=== PATIENT | male | born 1935 | race Caucasian/White ===

== ENCOUNTER 2019-10-14 07:08 | Day surgery (SDC) | payer MEDICARE, OTHER ==
[2019-10-14] MEDS: Polymyxin B/Trimethoprim 10 ML Bottle EYERT SCH ×4 (07:12→08:57)
[2019-10-14] MEDS: Brimonidine 0.2% Ophth Soln 5 ML Bottle EYERT SCH ×4 (07:19→08:57)
--- NOTE | 2019-10-14 07:20 | PCM.PREANE ---
Preanesthetic Assessment - Anesthesia/Transfusion/Family Hx Anesthesia History: Prior Anesthesia Without Reaction Family History of Anesthesia Reaction: No Transfusion History: No Prior Transfusion(s) - Review of Systems General: No Symptoms, Night Sweats Cardiovascular: No Symptoms Gastrointestinal: No Symptoms Neurological: No Symptoms Other: Reports: None - Physical Assessment NPO Status Date: 10/13/19 NPO Status Time: 21:00 ASA Class: 2 Mental Status: Alert & Oriented x3 Airway Class: Mallampati = 1 Dentition: Reports: Dentures Thyro-Mental Finger Breadths: 3 Mouth Opening Finger Breadths: 3 ROM/Head Extension: Full Lungs: Clear to Auscultation, Normal Respiratory Effort Cardiovascular: Regular Rate, Regular Rhythm - Allergies Allergies/Adverse Reactions: Allergies Allergy/AdvReac Type Severity Reaction Status Date / Time erythromycin base Allergy Hives Verified 10/13/19 21:23 - Anesthesia Plan Beta Fredrick: Carvedilol Med Last Dose Date: 10/14/19 Med Last Dose Time: 05:00 - Acknowledgements Anesthesia Type Planned: MAC Pt an Appropriate Candidate for the Planned Anesthesia: Yes Alternatives and Risks of Anesthesia Discussed w Pt/Guardian: Yes Pt/Guardian Understands and Agrees with Anesthesia Plan: Yes PreAnesthesia Questionnaire HEENT History: Reports: Cataract Cardiovascular History: Reports: CAD (mar 2019 CABG 4 vessel), High Cholesterol , Hypertension Respiratory History: Reports: None Gastrointestinal History: Reports: GERD Genitourinary History: Reports: Renal Calculus Musculoskeletal History: Reports: Arthritis Psychiatric History: Reports: None Endocrine/Metabolic History: Reports: Diabetes, Type II Hematologic History: Reports: Polycythemia Oncologic (Cancer) History: Reports: Other (See Below) (polycythemia) - Past Surgical History Cardiovascular Surgical History: Reports: Coronary Artery Bypass GI Surgical History: Reports: Cholecystectomy, Colonoscopy - SUBSTANCE USE Smoking Status *Q: Former Smoker - HOME MEDS Home Medications: Home Meds metFORMIN HCl [Metformin HCl] 500 mg PO BID 10/13/15 [History] Aspirin 81 mg PO DAILY 10/13/19 [History] Carboxymethylcellulose Sodium [Artificial Tears] 1 dose EYEBOTH ASDIRECTED PRN 10/13/19 [History] Clopidogrel Bisulfate [Clopidogrel] 75 mg PO DAILY 10/13/19 [History] Hydrocortisone [Hydrocortisone 2.5% Oint] 1 dose TOP BID PRN 10/13/19 [History] Hydroxyurea 500 mg PO DAILY 10/13/19 [History] Nitroglycerin [Nitrostat] 0.4 mg PO DAILY 10/13/19 [History] Sennosides/Docusate Sodium [Sennosides-Docusate Sodium] 1 tab PO DAILY 10/13/19 [History] Tamsulosin HCl 0.4 mg PO DAILY 10/13/19 [History] atorvaSTATin Calcium [Lipitor] 40 mg PO DAILY 10/13/19 [History] carvediloL [Carvedilol] 3.125 mg PO BID 10/13/19 [History] lisinopriL [Lisinopril] 5 mg PO DAILY 10/13/19 [History] - CURRENT (IN HOUSE) MEDS Current Meds: Current Medications Brimonidine Tartrate (Alphagan 0.2% Ophth Soln) 0 ml EYERT ASDIRECTED KEVIN Stop: 10/14/19 18:00 Cefuroxime Sodium (Zinacef) 0 mg EYERT ASDIRECTED KEVIN Stop: 10/14/19 18:00 Lidocaine HCl (Lidocaine 1%) 0 ml INJECT ASDIRECTED KEVIN Stop: 10/14/19 18:00 Phenylephrine HCl (Tl-Synephrine 2.5% Ophth Soln) 0 ml EYERT ASDIRECTED KEVIN Stop: 10/14/19 18:00 Pilocarpine HCl (Pilocar 4% Ophth Soln) 0 ml EYERT ASDIRECTED KEVIN Stop: 10/14/19 18:00 Polymyxin/Trimethoprim Sulfate (Polytrim Ophth Soln) 0 ml EYERT ASDIRECTED KEVIN Stop: 10/14/19 18:00 Tetracaine HCl (Tetracaine 0.5% Steri-Unit Maria Luisa) 0 ml EYEBOTH ASDIRECTED KEVIN Stop: 10/14/19 18:00 Tropicamide (Mydriacyl 1% Ophth Soln) 0 ml EYERT ASDIRECTED KEVIN Stop: 10/14/19 18:00
[2019-10-14] MEDS: Phenylephrine 2.5% Ophth Soln 2 ML Bot EYERT SCH ×6 (07:23→08:34)
[2019-10-14] MEDS: Tropicamide 1% Ophth Soln 15 ML Bottle EYERT SCH ×4 (07:28→08:03)
[2019-10-14] MEDS: Tetracaine HCl/PF 0.5% 4 ML Bottle EYEBOTH SCH ×3 (07:33→08:45)
[2019-10-14] MEDS: Pilocarpine 4% Ophth Soln 15 ML Bot EYERT SCH ×2 (07:34→08:57)
[2019-10-14] MEDS: Cefuroxime 10 MG/ML SYRINGE EYERT SCH ×2 (07:34→08:56)
[2019-10-14] MEDS: Lidocaine 1% 2 ML SDV INJECT SCH ×2 (07:34→08:46)
--- NOTE | 2019-10-14 09:01 | PCM48HPAN ---
Post Anesthesia Note - EVALUATION WITHIN 48HRS OF ANESTHETIC Vital Signs in Normal Range: Yes Patient Participated in Evaluation: Yes Respiratory Function Stable: Yes Airway Patent: Yes Cardiovascular Function Stable: Yes Hydration Status Stable: Yes Pain Control Satisfactory: Yes Nausea and Vomiting Control Satisfactory: Yes Mental Status Recovered: Yes Vital Signs: Last Vital Signs Temp 36.3 C 10/14/19 07:10 Pulse 88 10/14/19 07:10 Resp 16 10/14/19 07:10 BP 145/76 H 10/14/19 07:10 Pulse Ox 98 10/14/19 07:10
[2019-10-14 09:14] VITALS: BP 132/67; PULSE 87
== END 2019-10-14 09:10 | disposition home or self-care (01) ==
LOC: JD.SDS 07:08
PROVIDERS: ATTEND Ophthalmology
DX: E11.36 Type 2 diabetes mellitus with diabetic cataract (principal); H25.813 Combined forms of age-related cataract, bilateral; H16.223 Keratoconjunctivitis sicca, not specified as Sjogren's, bilateral; H16.103 Unspecified superficial keratitis, bilateral; H02.831 Dermatochalasis of right upper eyelid; H02.834 Dermatochalasis of left upper eyelid; H21.81 Floppy iris syndrome; E78.00 Pure hypercholesterolemia, unspecified; I10 Essential (primary) hypertension; K21.9 Gastro-esophageal reflux disease without esophagitis; Z79.82 Long term (current) use of aspirin; Z79.84 Long term (current) use of oral hypoglycemic drugs; Z88.1 Allergy status to other antibiotic agents; Z79.899 Other long term (current) drug therapy; Z87.891 Personal history of nicotine dependence
CPT/HCPCS: J0697; J2001; V2632

== ENCOUNTER 2019-11-11 07:01 | Day surgery (SDC) | payer MEDICARE, OTHER ==
[2019-11-11] MEDS: Polymyxin B/Trimethoprim 10 ML Bottle EYELF SCH ×4 (07:15→08:58)
[2019-11-11] MEDS: Brimonidine 0.2% Ophth Soln 5 ML Bottle EYELF SCH ×4 (07:19→08:58)
[2019-11-11] MEDS: Phenylephrine 2.5% Ophth Soln 2 ML Bot EYELF SCH ×6 (07:24→08:28)
--- NOTE | 2019-11-11 07:26 | PCM.PREANE ---
Preanesthetic Assessment - Procedure Proposed Procedure: Cataract Left eye with IOL - Anesthesia/Transfusion/Family Hx Anesthesia History: Prior Anesthesia Without Reaction Family History of Anesthesia Reaction: No Transfusion History: No Prior Transfusion(s) - Review of Systems General: No Symptoms Pulmonary: No Symptoms Cardiovascular: Dyspnea on Exertion Gastrointestinal: No Symptoms Neurological: No Symptoms Other: Reports: Diabetes (check this am 150), Neck Pain (right side) - Physical Assessment NPO Status Date: 11/10/19 NPO Status Time: 00:00 Height: 1.78 m Weight: 82.1 kg ASA Class: 3 Mental Status: Alert & Oriented x3 Airway Class: Mallampati = 2 Dentition: Reports: Dentures Thyro-Mental Finger Breadths: 3 Mouth Opening Finger Breadths: 2 ROM/Head Extension: Full Lungs: Clear to Auscultation, Normal Respiratory Effort Cardiovascular: Regular Rate, Regular Rhythm - Allergies Allergies/Adverse Reactions: Allergies Allergy/AdvReac Type Severity Reaction Status Date / Time erythromycin base Allergy Hives Verified 11/10/19 15:08 - Blood Blood Available: No Product(s) Available: None - Anesthesia Plan Pre-Op Medication Ordered: Beta Fredrick Beta Fredrick: Carvedilol Med Last Dose Date: 11/11/19 Med Last Dose Time: 05:30 - Acknowledgements Anesthesia Type Planned: MAC Pt an Appropriate Candidate for the Planned Anesthesia: Yes Alternatives and Risks of Anesthesia Discussed w Pt/Guardian: Yes Pt/Guardian Understands and Agrees with Anesthesia Plan: Yes PreAnesthesia Questionnaire HEENT History: Reports: Cataract Cardiovascular History: Reports: CAD (mar 2019 CABG 4 vessel), High Cholesterol, Hypertension Respiratory History: Reports: None Gastrointestinal History: Reports: GERD Genitourinary History: Reports: Renal Calculus Musculoskeletal History: Reports: Arthritis Psychiatric History: Reports: None Endocrine/Metabolic History: Reports: Diabetes, Type II Hematologic History: Reports: Polycythemia Oncologic (Cancer) History: Reports: Other (See Below) (polycythemia) - Past Surgical History Cardiovascular Surgical History: Reports: Coronary Artery Bypass GI Surgical History: Reports: Cholecystectomy, Colonoscopy - HOME MEDS Home Medications: Home Meds metFORMIN HCl [Metformin HCl] 500 mg PO BID 10/13/15 [History] Aspirin 81 mg PO DAILY 10/13/19 [History] Carboxymethylcellulose Sodium [Artificial Tears] 1 dose EYEBOTH ASDIRECTED PRN 10/13/19 [History] Clopidogrel Bisulfate [Clopidogrel] 75 mg PO DAILY 10/13/19 [History] Hydrocortisone [Hydrocortisone 2.5% Oint] 1 dose TOP BID PRN 10/13/19 [History] Hydroxyurea 500 mg PO DAILY 10/13/19 [History] Nitroglycerin [Nitrostat] 0.4 mg PO DAILY 10/13/19 [History] Sennosides/Docusate Sodium [Sennosides-Docusate Sodium] 1 tab PO DAILY 10/13/19 [History] Tamsulosin HCl 0.4 mg PO DAILY 10/13/19 [History] atorvaSTATin Calcium [Lipitor] 40 mg PO DAILY 10/13/19 [History] carvediloL [Carvedilol] 3.125 mg PO BID 10/13/19 [History] lisinopriL [Lisinopril] 5 mg PO DAILY 10/13/19 [History] - CURRENT (IN HOUSE) MEDS Current Meds: Current Medications Brimonidine Tartrate (Alphagan 0.2% Ophth Soln) 0 ml EYELF ASDIRECTED KEVIN Stop: 11/11/19 23:00 Cefuroxime Sodium (Zinacef) 0 mg EYELF ASDIRECTED KEVIN Stop: 11/11/19 23:00 Lidocaine HCl (Xylocaine-Mpf 1%) 0 ml INJECT ASDIRECTED KEVIN Stop: 11/11/19 23:00 Phenylephrine HCl (Tl-Synephrine 2.5% Ophth Soln) 0 ml EYELF ASDIRECTED KEVIN Stop: 11/11/19 23:00 Pilocarpine HCl (Pilocar 4% Ophth Soln) 0 ml EYELF ASDIRECTED KEVIN Stop: 11/11/19 23:00 Polymyxin/Trimethoprim Sulfate (Polytrim Ophth Soln) 0 ml EYELF ASDIRECTED KEVIN Stop: 11/11/19 23:00 Last Admin: 11/11/19 07:15 Dose: 1 drop Documented by: Tetracaine HCl (Tetracaine 0.5% Steri-Unit Maria Luisa) 0 ml EYEBOTH ASDIRECTED KEVIN Stop: 11/11/19 23:00 Tropicamide (Mydriacyl 1% Ophth Soln) 0 ml EYELF ASDIRECTED KEVIN Stop: 11/11/19 23:00
[2019-11-11] MEDS: Tropicamide 1% Ophth Soln 15 ML Bottle EYELF SCH ×4 (07:28→08:02)
[2019-11-11] MEDS: Lidocaine 1% PF 2 ML SDV INJECT SCH ×2 (08:06→08:40)
[2019-11-11] MEDS: Pilocarpine 4% Ophth Soln 15 ML Bot EYELF SCH ×2 (08:07→08:58)
[2019-11-11] MEDS: Tetracaine HCl/PF 0.5% 4 ML Bottle EYEBOTH SCH ×3 (08:07→08:40)
[2019-11-11] MEDS: Cefuroxime 10 MG/ML SYRINGE EYELF SCH ×2 (08:07→08:58)
[2019-11-11 08:37] VITALS: BP 135/63; PULSE 75
--- NOTE | 2019-11-11 09:04 | PCM48HPAN ---
Post Anesthesia Note - EVALUATION WITHIN 48HRS OF ANESTHETIC Vital Signs in Normal Range: Yes Patient Participated in Evaluation: Yes Respiratory Function Stable: Yes Airway Patent: Yes Cardiovascular Function Stable: Yes Hydration Status Stable: Yes Pain Control Satisfactory: Yes Nausea and Vomiting Control Satisfactory: Yes Mental Status Recovered: Yes Vital Signs: Last Vital Signs Temp 36.2 C 11/11/19 07:00 Pulse 75 11/11/19 07:00 Resp 14 11/11/19 07:00 BP 135/63 11/11/19 07:00 Pulse Ox 98 11/11/19 07:00
== END 2019-11-11 09:10 | disposition home or self-care (01) ==
LOC: JD.SDS 07:01
PROVIDERS: ATTEND Ophthalmology
DX: E11.36 Type 2 diabetes mellitus with diabetic cataract (principal); H25.812 Combined forms of age-related cataract, left eye; H11.823 Conjunctivochalasis, bilateral; H02.831 Dermatochalasis of right upper eyelid; H02.834 Dermatochalasis of left upper eyelid; H21.81 Floppy iris syndrome; H21.42 Pupillary membranes, left eye; E78.00 Pure hypercholesterolemia, unspecified; I10 Essential (primary) hypertension; K21.9 Gastro-esophageal reflux disease without esophagitis; Z96.1 Presence of intraocular lens; Z79.899 Other long term (current) drug therapy; Z79.4 Long term (current) use of insulin; Z79.82 Long term (current) use of aspirin; Z88.1 Allergy status to other antibiotic agents; Z87.891 Personal history of nicotine dependence
CPT/HCPCS: 66982; 82962; J0697; J2001; C1780

== ENCOUNTER 2021-04-29 16:42 | Emergency (ER) | payer MEDICARE, OTHER ==
[2021-04-29] MEDS ORDERED: Dextrose 5%-0.9% NaCl 1,000 ML IV SCH (17:00)
--- NOTE | 2021-04-29 17:01 | EDM.PDOC ---
ED HPI GENERAL MEDICAL PROBLEM - General Chief Complaint: Respiratory Problem Stated Complaint: [facility] Time Seen by Provider: 04/29/21 16:54 Source of Information: Reports: Patient History Limitations: Reports: No Limitations - History of Present Illness INITIAL COMMENTS - FREE TEXT/NARRATIVE: 86-year-old male presents to the ED per [facility] from [place]. He is diagnosed with COVID-19 positivity 4 days ago. His remains at home and she is also Covid positive. Today he suddenly became lightheaded dizzy and very weak. He admits he is hardly been able to eat or drink at all for the last several days. Been drinking mostly water and having a bit of Cheerios in the mornings. Persistent fever. Cough is mildly productive of white sputum. Generalized weakness. He denies falling at home although he had a near fall this afternoon. He thinks he is making urine at least twice daily. Paramedics thought he was initially confused and they were worried about a stroke but he shows me no signs of stroke on my exam. Onset: Today, Sudden Onset Date: 04/29/21 Onset Time: 15:00 (Became weak and dizzy and had a near syncopal event at home shortly after 1500 hrs. or thereabouts today.) Duration: Day(s): (Diagnosed with COVID-19 4 days ago.) Location: Reports: Generalized (Generalized weakness. Persistent fever. No chills.), Other ( Generalized myalgia. Complete loss of appetite.) Quality: Reports: Ache, Other (And lightheadedness) Severity: Moderate (Generalized aching all of his muscles.) Improves with: Reports: Rest Worsens with: Reports: Other (Worsened since he tries to stand up or particular trying go to the bathroom.) Context: Reports: Other (Diagnosed with COVID-19 illness 4 days ago. He has never been vaccinated). Denies: Activity, Exercise, Lifting, Sick Contact, Trauma Associated Symptoms: Reports: Cough (Paroxysmal), cough w sputum ( minimally productive cough of white sputum), Diaphoresis (And white sputum initial onset of illness), Fever/Chills, Headaches, Loss of Appetite, Malaise (Nausea without vomiting), Nausea/Vomiting, Shortness of Breath, Weakness, Other (Generalized lightheaded and dizzy with near syncope this afternoon). 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 - Related Data Allergies Allergy/AdvReac Type Severity Reaction Status Date / Time erythromycin base Allergy Hives Verified 04/30/21 17:45 Home Meds: Home Meds metFORMIN HCl [Metformin HCl] 500 mg PO BID 10/13/15 [History] Aspirin 81 mg PO DAILY 10/13/19 [History] Hydroxyurea 500 mg PO DAILY 10/13/19 [History] Tamsulosin HCl 0.4 mg PO BEDTIME 10/13/19 [History] carvediloL [Carvedilol] 3.125 mg PO BID 10/13/19 [History] Pravastatin [Pravachol] 40 mg PO BEDTIME 04/29/21 [History] Past Medical History HEENT History: Reports: Cataract Cardiovascular History: Reports: Bypass (Previous cardiac bypass surgery--quadruple bypass carried out April 122018.), CAD (mar 2019 CABG 4 vessel), Heart Failure, High Cholesterol, Hypertension Respiratory History: Reports: None Gastrointestinal History: Reports: GERD Genitourinary History: Reports: BPH (He is listed as being on tamsulosin daily.), Renal Calculus Musculoskeletal History: Reports: Arthritis Psychiatric History: Reports: None Endocrine/Metabolic History: Reports: Diabetes, Type II (Controlled with diet and Metformin twice daily.) Hematologic History: Reports: Polycythemia (He is taking hydroxyurea 500 mg once daily for this.) Oncologic (Cancer) History: Reports: Other (See Below) (polycythemia) - Past Surgical History Cardiovascular Surgical History: Reports: Coronary Artery Bypass GI Surgical History: Reports: Cholecystectomy, Colonoscopy Social & Family History - Living Situation & Occupation Living situation: Reports: , with Spouse (In their own home here in [place].) Occupation: Retired ED ROS GENERAL - Review of Systems Review Of Systems: See Below Constitutional: Reports: Fever, Chills, Malaise, Weakness, Fatigue, Decreased Appetite, Weight Loss HEENT: Reports: Glasses (Wears glasses intermittently but finds it really does not help his vision.), Other (Patient has an obvious ptosis of his right upper eyelid he does not know how long its been there but he says years. He clinically appears to have some amblyopia in the right eye. He denies diplopia) Respiratory: Reports: Shortness of Breath, Cough (Intermittent severe paroxysmal cough), Sputum (White sputum). Denies: Wheezing, Pleuritic Chest Pain Cardiovascular: Denies: Chest Pain Endocrine: Reports: Fatigue GI/Abdominal: Reports: Decreased Appetite, Nausea. Denies: Abdominal Pain, Diarrhea, Vomiting : Reports: Frequency, Other (He thinks he has voided twice today. Not sure. Nocturia x2 known BPH) Musculoskeletal: Reports: Neck Pain, Back Pain, Other (Neurolyse myalgia particularly upper back and lower back muscles and thighs.) Skin: Reports: No Symptoms Neurological: Reports: Dizziness (Near syncopal event reported this afternoon at home. This is one of the reasons of coming to the ED.), Weakness. Denies: Confusion, Numbness, Paresthesia, Seizure, Syncope, Tingling, Tremors, Trouble Speaking, Change in Speech, Gait Disturbance, Other Psychiatric: Reports: No Symptoms Hematologic/Lymphatic: Reports: Other (Known polycythemia rubra vera.) Immunologic: Reports: No Symptoms ED EXAM, GENERAL - Physical Exam Exam: See Below Exam Limited By: No Limitations General Appearance: Alert, No Apparent Distress, Other (Patient is very warm to palpation. Coming from outside his initial temperature was reported as 36.5 but this is incorrect. Heart rate is 93 and sinus. Respiratory it is 32 with O2 sats of 92% on room air. BP 141/75) Eye Exam: Bilateral Eye: Other (Mild ptosis right upper eyelid which he states is chronic. 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 He reports that the right eye is always been his weak eye. Denies diplopia) Throat/Mouth: Other Head: Atraumatic (Tongue is dry and coated.), Normocephalic, Other (No outward signs of any head or facial trauma) Neck: Normal Inspection, Limited Range of Motion (Limited lateral flexion and extension and flexion). No: Supple, Full Range of Motion, Carotid Bruit, Lymphadenopathy (L) ( with crepitus.), Lymphadenopathy (R) Respiratory/Chest: Lungs Clear, Normal Breath Sounds, No Accessory Muscle Use, Respiratory Distress (Neck at rest 32/min with O2 sats of 91 to 94% on room air. He will be started on oxygen at 2 L/min by nasal cannula after blood gases are obtained), Decreased Breath Sounds (Breath sounds are minimally decreased to both posterior lung atkinson.), Other (Well-healed midline sternotomy from bypass surgery that apparently was carried out in March 2019. He believes four- vessel bypass was performed). No: Crackles, Rales, Rhonchi, Wheezing, Stridor Cardiovascular: Normal Peripheral Pulses, Regular Rate, Rhythm, No Edema, No Gallop, No JVD, No Rub Peripheral Pulses: 1+: Posterior Tibial (L), Posterior Tibial (R), Dorsalis Pedis (L), Dorsalis Pedis (R), 2+: Carotid (L), Carotid (R) GI/Abdominal: Normal Bowel Sounds, Soft, Non-Tender, No Organomegaly, Distended (Mildly distended and tympanic upper abdomen compatible with aerophagia.), Other (Surgical evidence of previous cholecystectomy) (Male) Exam: No Hernia Back Exam: Normal Inspection. No: Full Range of Motion, CVA Tenderness (L) (Not able to assess in the bed.), CVA Tenderness (R) Extremities: Normal Inspection, No Pedal Edema, Other (Arthritic changes both knees and very limited internal/external rotation of either hip.) Neurological: Alert, Oriented, CN II-XII Intact, Normal Cognition, No Motor/Sensory Deficits. 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) ST-T: Other (Irregular baseline in the limb leads precludes ability to use them for interpretation.) QT: Prolonged (Moderately prolonged) EKG Interpretation Comments: Abnormal ECG Course - Vital Signs Last Recorded V/S: Last Vital Signs Temp 36.2 C 04/29/21 21:50 Pulse 90 04/29/21 18:11 Resp 25 H 04/29/21 21:50 BP 128/69 04/29/21 21:50 Pulse Ox 91 L 04/29/21 18:11 Orthostatic Blood Pressure [ 153/77 Standing] Orthostatic Blood Pressure [ 118/55 Supine] - Orders/Labs/Meds Labs: Laboratory Tests 04/29/21 04/29/21 04/29/21 Range/Units 17:07 17:07 17:07 WBC 3.89 L (4.23-9.07) K/mm3 RBC 3.99 L (4.63-6.08) M/mm3 Hgb 14.9 (13.7-17.5) gm/dl Hct 42.4 (40.1-51.0) % MCV 106.3 H D (79.0-92.2) fl MCH 37.3 H (25.7-32.2) pg MCHC 35.1 (32.2-35.5) g/dl RDW Std Deviation 53.3 H (35.1-43.9) fL Plt Count 115 L (163-337) K/mm3 MPV 10.9 (9.4-12.3) fl Neut % (Auto) 85.5 H (34.0-67.9) % Lymph % (Auto) 9.3 L (21.8-53.1) % Stark % (Auto) 4.9 L (5.3-12.2) % Eos % (Auto) 0 L (0.8-7.0) Baso % (Auto) 0.0 L (0.1-1.2) % Neut # (Auto) 3.33 (1.78-5.38) K/mm3 Lymph # (Auto) 0.36 L (1.32-3.57) K/mm3 Stark # (Auto) 0.19 L (0.30-0.82) K/mm3 Eos # (Auto) 0.00 L (0.04-0.54) K/mm3 Baso # (Auto) 0.00 L (0.01-0.08) K/mm3 PT 10.9 (9.7-12.0) SECONDS INR 0.98 APTT 29.2 (21.7-31.4) SECONDS Puncture Site ABG pH (7.35-7.45) ABG pCO2 (35.0-45.0) mmHg ABG pO2 (80.0-100.0) mmHg ABG HCO3 (22.0-26.0) meq/L ABG O2 Saturation (96.0-97.0) % ABG Base Excess (-2-2.0) Saul Test A-a Gradient mmHg O2 Delivery Device Sodium 132 L (136-145) mEq/L Potassium 4.1 (3.5-5.1) mEq/L Chloride 97 L (98-107) mEq/L Carbon Dioxide 24 (21-32) mEq/L Anion Gap 15.1 H (5-15) BUN 22 H (7-18) mg/dL Creatinine 1.2 (0.7-1.3) mg/dL Est Cr Clr Drug Dosing 47.93 mL/min Estimated GFR (MDRD) 58 (>60) mL/min BUN/Creatinine Ratio 18.3 H (14-18) Glucose 150 H (70-99) mg/dL Calcium 8.5 (8.5-10.1) mg/dL Magnesium 1.8 (1.8-2.4) mg/dL Total Bilirubin 1.5 H (0.2-1.0) mg/dL AST 37 (15-37) U/L ALT 29 (16-63) U/L Alkaline Phosphatase 77 (46-116) U/L Troponin I 0.022 (0.00-0.056) ng/mL C-Reactive Protein 4.9 H* (<1.0) mg/dL NT-Pro-B Natriuret Pep (0-450) pg/mL Total Protein 6.9 (6.4-8.2) g/dl Albumin 3.4 (3.4-5.0) g/dl Globulin 3.5 gm/dL Albumin/Globulin Ratio 1.0 (1-2) 04/29/21 04/29/21 Range/Units 17:07 17:18 WBC (4.23-9.07) K/mm3 RBC (4.63-6.08) M/mm3 Hgb (13.7-17.5) gm/dl Hct (40.1-51.0) % MCV (79.0-92.2) fl MCH (25.7-32.2) pg MCHC (32.2-35.5) g/dl RDW Std Deviation (35.1-43.9) fL Plt Count (163-337) K/mm3 MPV (9.4-12.3) fl Neut % (Auto) (34.0-67.9) % Lymph % (Auto) (21.8-53.1) % Stark % (Auto) (5.3-12.2) % Eos % (Auto) (0.8-7.0) Baso % (Auto) (0.1-1.2) % Neut # (Auto) (1.78-5.38) K/mm3 Lymph # (Auto) (1.32-3.57) K/mm3 Stark # (Auto) (0.30-0.82) K/mm3 Eos # (Auto) (0.04-0.54) K/mm3 Baso # (Auto) (0.01-0.08) K/mm3 PT (9.7-12.0) SECONDS INR APTT (21.7-31.4) SECONDS Puncture Site Rt radial ABG pH 7.44 (7.35-7.45) ABG pCO2 30.8 L (35.0-45.0) mmHg ABG pO2 63.0 L (80.0-100.0) mmHg ABG HCO3 20.8 L (22.0-26.0) meq/L ABG O2 Saturation 93.1 L (96.0-97.0) % ABG Base Excess -1.8 (-2-2.0) Saul Test Positive A-a Gradient 48 mmHg O2 Delivery Device Room air Sodium (136-145) mEq/L Potassium (3.5-5.1) mEq/L Chloride (98-107) mEq/L Carbon Dioxide (21-32) mEq/L Anion Gap (5-15) BUN (7-18) mg/dL Creatinine (0.7-1.3) mg/dL Est Cr Clr Drug Dosing mL/min Estimated GFR (MDRD) (>60) mL/min BUN/Creatinine Ratio (14-18) Glucose (70-99) mg/dL Calcium (8.5-10.1) mg/dL Magnesium (1.8-2.4) mg/dL Total Bilirubin (0.2-1.0) mg/dL AST (15-37) U/L ALT (16-63) U/L Alkaline Phosphatase (46-116) U/L Troponin I (0.00-0.056) ng/mL C-Reactive Protein (<1.0) mg/dL NT-Pro-B Natriuret Pep 1662 H (0-450) pg/mL Total Protein (6.4-8.2) g/dl Albumin (3.4-5.0) g/dl Globulin gm/dL Albumin/Globulin Ratio (1-2) Meds: Medications Discontinued Medications Generic Name Dose Route Start Last Admin Trade Name Freq PRN Reason Stop Dose Admin Acetaminophen 650 mg 04/29/21 17:12 04/29/21 17:44 Acetaminophen 325 Mg Tab PO 04/29/21 17:13 650 mg ONETIME ONE Administration Diphenhydramine HCl 50 mg 04/29/21 18:28 Diphenhydramine 50 Mg/Ml Sdv IVPUSH ASDIRECTED PRN hypersensitivity reaction Epinephrine HCl 0.3 mg 04/29/21 18:28 Epinephrine 1 Mg/Ml Sdv IM ASDIRECTED PRN hypersensitivity reaction Famotidine 20 mg 04/29/21 18:28 Famotidine 20 Mg/2 Ml Sdv IVPUSH ASDIRECTED PRN hypersensitivity reaction Dextrose/Sodium Chloride 1,000 mls @ 250 mls/hr 04/29/21 17:00 Dextrose 5%-Normal Saline IV ASDIRECTED KEVIN Lactated Ringer's 1,000 mls @ 250 mls/hr 04/29/21 17:45 04/29/21 17:47 Ringers, Lactated IV 250 mls/hr .BOLUS KEVIN Administration Sodium Chloride Confirm 04/29/21 17:36 Normal Saline Administered 04/29/21 17:37 Dose 1,000 mls @ as directed .ROUTE .STK-MED ONE CASIRIVIMAB/IMDEVIMAB 10 ml/ 110 mls @ 220 mls/hr 04/29/21 18:28 04/29/21 19:43 Sodium Chloride IV 04/29/21 18:57 220 mls/hr ONETIME ONE Administration Methylprednisolone Sodium Succinate 125 mg 04/29/21 18:28 Methylprednisolone Sodium Succinate 125 Mg/2 Ml Sdv IVPUSH ASDIRECTED PRN hypersensitivity reaction Sodium Chloride 30 ml 04/29/21 18:30 Sodium Chloride 0.9% 10 Ml Syringe FLUSH ASDIRECTED KEVIN - Radiology Interpretation Free Text/Narrative:: 86-year-old male presents to the ED per [facility] from [place]. Both he and his were diagnosed with COVID-19 4 days ago. He believes he became unwell only the day prior to testing. He has therefore currently on day 5 of illness. He is unvaccinated. He became very weak dizzy and lightheaded at home this afternoon with near syncope collapse. Admits he is not been able to eat or drink much at all taking a bit of Cheerios in the morning and some water only. She not sure if he passed his urine twice today or not. He appreciates urine is quite dark in color. States when he tries to stand up to get to the bathroom he becomes very lightheaded and dizzy. His med list shows that he is taking Flomax 0.4 mg once daily at bedtime which would be contributing to orthostasis. Clinically he is febrile and will be given Tylenol 650 mg p.o. He is alert oriented and answers all questions appropriately. There was some concern by paramedics that he may have some right-sided weakness but he has some ptosis of his right eye with some amblyopia which is chronic for him. I cannot identify any signs of CVA otherwise. He has generalized weakness. Plan he will have COVID-19 labs and blood cultures x2. Chest x-ray portably. IV will be Ringer's lactate at 250 mils an hour. O2 sats are currently 91 to 93%. ABGs will be collected and he will be started on oxygen at 2 L/min by nasal cannula. - Re-Assessments/Exams Free Text/Narrative Re-Assessment/Exam: 04/29/21 17:41 Portable chest x-ray reveals moderate cardiomegaly. There appears to be an infiltrate either retrocardiac or in the left lower lobe at the lung compatible with a pneumonia. He has had evidence of previous open heart surgery with wire circlage of the sternum. White count is 3.89. The auto differential reveals 85.5% neutrophils and 9.3% lymphocytes. Hemoglobin is 14.9 with hematocrit of 42.4. MCV is elevated at 106.3. Platelet count is low at 115,000. ABGs revealed a pH of 7.44. PCO2 is 30.8. PO2 was 63.0 with a bicarb of 20.8 O2 sats are 93% on room air. He will be placed on oxygen at 2 L/min by nasal cannula. Chemistry is pending 04/29/21 18:21 Sodium is slightly low at 132. Potassium is 4.1. Chloride 97 with a bicarb of 24. Anion gap is 15.1. BUN is 22 with a creatinine of 1.2 and a GFR of 58. BUN/creatinine ratio is 18.3 minimally elevated. Glucose was 150. Calcium is 8.5 magnesium 1.8. Bilirubin is 1.5 with a normal AST at 37 and ALT of 29 and alkaline phosphatase of 77. 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 Troponin I is 0.022. C-reactive protein is 4.9. BNP is 1662. Total protein is 6.9 with an albumin fraction of 3.4. 04/29/21 18:29 I did speak with the patient's and she understands that monoclonal antibodies would be useful. She had spoken with their primary care provider at [facility] who opted to set things up tomorrow for monoclonal antibodies but will be ahead of the game by giving it here in the emergency room. Tentatively he will be discharged to home as there are no beds in our hospital at this time unless there are other further problems occur such as increased weakness. She states he was weak enough at home that he could go up and down the stairs. I believe this was due to fever and mild dehydration. 04/29/21 19:53 Patient is tolerating monoclonal antibody infusion at this time. He is afebrile. He has not been up to void yet. The nurse was made aware that he needs to be able to walk and talk normally prior to discharge. The goal would be to allow him home around 2100 hrs. tonight. is aware of this a well. Worse case scenario the patient needs to stay in the ED overnight with hopefully a bed become available tomorrow due to COVID-19 illness. Patient is adamant that he is going home. Departure - Departure Time of Disposition: 22:25 Disposition: Home, Self-Care 01 Condition: Fair Clinical Impression: COVID-19, Generalized weakness, Mild dehydration Fever Qualifiers: Fever type: unspecified Qualified Code(s): R50.9 - Fever, unspecified - Discharge Information *PRESCRIPTION DRUG MONITORING PROGRAM REVIEWED*: Not Applicable *COPY OF PRESCRIPTION DRUG MONITORING REPORT IN PATIENT DANIEL: Not Applicable Instructions: What You Should Know About COVID-19 to Protect Yourself and Other s - CDC, 10 Things You Can Do to Manage Your COVID-19 Symptoms at Home - CDC (12/08/2020), Dehydration, Elderly, COVID-19: Quarantine vs. Isolation - [facility] (05/11/2020), Fever, Adult, [id number] Referrals: Nettie Martinez MANAGER [employer]NAG[employer] [Primary Care Provider] - Forms: ED Department Discharge Additional Instructions: Evaluation in the emergency room today in regards to COVID-19 illness. Chest x- ray reveals the beginnings of pneumonia left lower lobe of your chest. You did have a fever upon presentation to the ED which I believe contributed to your weakness at home with difficulty walking and navigating stairs. You were also found to be mildly dehydrated due to loss of appetite over the last 3 to 4 days with onset of COVID-19 illness. You were given dual monoclonal antibody infusion called Regen/Cov which will give you to antibodies against the COVID-19 virus immediately with hopes of preventing worsening pneumonia and thus low oxygen levels which would precipitate admission to the hospital. Continue Tylenol 650 mg every 4-6 hours as needed for fever relief. Plenty of fluids even Gatorade or Powerade not just plain water to provide rehydration with electrolyte solutions similar to IV fluids. Appetite as tolerated. Follow-up with personal care provider if any further problems occur or return to the ED.
[2021-04-29] MEDS ORDERED: Acetaminophen 325 MG Tab PO ONE (17:12)
[2021-04-29] MEDS ORDERED: Sodium Chloride 0.9% 1,000 ML ONE (17:36)
[2021-04-29] MEDS ORDERED: Lactated Ringers 1,000 ML IV SCH (17:45)
[2021-04-29 18:15] VITALS: PULSE 90
[2021-04-29] MEDS ORDERED: Famotidine 20 MG/2 ML SDV IVPUSH PRN (18:28)
[2021-04-29] MEDS ORDERED: diphenhydrAMINE 50 MG/ML SDV IVPUSH PRN (18:28)
[2021-04-29] MEDS ORDERED: EPINEPHrine 1 MG/ML SDV IM PRN (18:28)
[2021-04-29] MEDS ORDERED: methylPREDNISolone Sodium Succinate 125 MG/2 ML SDV IVPUSH PRN (18:28)
[2021-04-29] MEDS ORDERED: Sodium Chloride 0.9% 10 ML Syringe FLUSH SCH (18:30)
--- NOTE | 2021-04-29 19:15 | CR ---
Chest: Portable view of the chest was obtained. Comparison: Prior chest x-ray of 07/11/13. Heart is enlarged. Upper mediastinum is within normal limits. Slight parenchymal densities are seen in the left upper and left lower lung. Slight parenchymal density is also seen within the right upper and right lower lung. Sternotomy is seen. Bony structures show nothing acute. Impression: 1. Findings suspicious for minimal COVID - 19 pneumonia. 2. Cardiomegaly and other incidental findings. Diagnostic code #3
[2021-04-29 22:17] VITALS: BP 128/69
== END 2021-04-29 21:55 | disposition home or self-care (01) ==
LOC: JD.ED 16:42
DX: U07.1 COVID-19 (principal); E86.0 Dehydration; R53.1 Weakness; I25.10 Atherosclerotic heart disease of native coronary artery without angina pectoris; K21.9 Gastro-esophageal reflux disease without esophagitis; E78.00 Pure hypercholesterolemia, unspecified; I11.0 Hypertensive heart disease with heart failure; I50.9 Heart failure, unspecified; E11.9 Type 2 diabetes mellitus without complications; N40.0 Benign prostatic hyperplasia without lower urinary tract symptoms; Z95.1 Presence of aortocoronary bypass graft; Z86.16 Personal history of COVID-19; Z88.1 Allergy status to other antibiotic agents; Z79.82 Long term (current) use of aspirin; Z79.84 Long term (current) use of oral hypoglycemic drugs; Z79.899 Other long term (current) drug therapy
CPT/HCPCS: 36415; 36600; 71045; 80053; 82803; 83735; 83880; 84484; 85025; 85610; 85730; 86140; 87040; 93005; 99285; A9270; J7120; M0243; Q0243

== ENCOUNTER 2021-04-30 04:06 | Inpatient (IN) | payer MEDICARE, OTHER ==
[2021-04-30] MEDS ORDERED: Sodium Chloride 0.9% 500 ML IV ONE (04:38)
--- NOTE | 2021-04-30 04:38 | EDM.PDOC ---
<Melecio Alberts - Last Filed: 04/30/21 06:53> ED HPI GENERAL MEDICAL PROBLEM - General Chief Complaint: Respiratory Problem Stated Complaint: [facility] Time Seen by Provider: 04/30/21 04:20 Source of Information: Reports: Patient History Limitations: Reports: No Limitations - History of Present Illness INITIAL COMMENTS - FREE TEXT/NARRATIVE: Patient is an 86-year-old male with a past medical history of CHF, CAD and recent Covid diagnosis presenting with a chief complaint of generalized weakness and fall. Patient states he did not really fall but did have problems getting off the floor after being on the toilet. He reports more sliding off the toilet. He denies pain anywhere. He specifically denies chest pain, shortness of breath, vomiting and diarrhea. He denies hitting his head or loss of consciousness. He states he is from a low appetite and his attempted to help him but was not able to and therefore called the ambulance. Patient was here in the emergency room yesterday evening, please see previous note reflecting this visit. He did receive the monoclonal antibody infusion and was subsequently discharged. Patient does live at home alone with his . - Related Data Allergies Allergy/AdvReac Type Severity Reaction Status Date / Time erythromycin base Allergy Hives Verified 04/30/21 04:16 Home Meds: Home Meds metFORMIN HCl [Metformin HCl] 500 mg PO BID 10/13/15 [History] Aspirin 81 mg PO DAILY 10/13/19 [History] Hydroxyurea 500 mg PO DAILY 10/13/19 [History] Tamsulosin HCl 0.4 mg PO BEDTIME 10/13/19 [History] carvediloL [Carvedilol] 3.125 mg PO BID 10/13/19 [History] Pravastatin [Pravachol] 40 mg PO BEDTIME 04/29/21 [History] Past Medical History HEENT History: Reports: Cataract Cardiovascular History: Reports: Bypass, CAD, Heart Failure, High Cholesterol, H ypertension Respiratory History: Reports: None Gastrointestinal History: Reports: GERD Genitourinary History: Reports: BPH, Renal Calculus Musculoskeletal History: Reports: Arthritis Psychiatric History: Reports: None Endocrine/Metabolic History: Reports: Diabetes, Type II Hematologic History: Reports: Polycythemia Oncologic (Cancer) History: Reports: None - Infectious Disease History Infectious Disease History: Reports: Novel Coronavirus - Past Surgical History Cardiovascular Surgical History: Reports: Coronary Artery Bypass GI Surgical History: Reports: Cholecystectomy, Colonoscopy Social & Family History - Family History Family Medical History: No Pertinent Family History - Tobacco Use Tobacco Use Status *Q: Never Tobacco User Second Hand Smoke Exposure: No - Caffeine Use Caffeine Use: Reports: Coffee - Recreational Drug Use Recreational Drug Use: Yes - Living Situation & Occupation Living situation: Reports: , with Spouse (In their own home here in [place].) Occupation: Retired ED ROS GENERAL - Review of Systems Review Of Systems: See Below Free Text/Narrative/Comment: In addition to that documented in the HPI above, the additional ROS was obtained: Constitutional: Denies fevers or chills Eyes: Denies vision changes ENMT: Denies sore throat CV: Denies chest pain Resp: Denies SOB GI: Denies vomiting or diarrhea : Denies painful urination MSK: Denies recent trauma Skin: Denies new rashes Neuro: Denies new numbness or tingling or weakness Endocrine: Denies unexpected weight loss Heme: Denies bleeding disorders ED EXAM, GENERAL - Physical Exam Exam: See Below Free Text/Narrative:: I have reviewed the triage vital signs Const: Well nourished, well developed, appears stated age Eyes: Pupils Equal and reactive to light bilaterally, no conjunctival injection HENT: No signs of trauma or swelling, Neck supple without meningismus CV: Tachycardic with regular rhythm, Warm, well-perfused extremities RESP: Unlabored respiratory effort GI: soft, non-tender, non-distended, no masses MSK: No gross deformities appreciated Skin: Warm, dry. No rashes Neuro: Alert, environmental compliance engineer II-XII grossly intact. Sensation and motor function of extremities grossly intact. Psych: Appropriate mood and affect. #1 Interpretation EKG Date: 04/30/21 Time: 04:12 Rhythm: NSR Rate (Beats/Min): 112 [place]: RAD-Right [place] Deviation P-Wave: Present QRS: RBBB ST-T: Normal QT: Normal Comparison: No Change EKG Interpretation Comments: Abnormal EKG Course - Re-Assessments/Exams Free Text/Narrative Re-Assessment/Exam: 04/30/21 06:53 86-year-old male with COVID-19 and weakness. He is not in respiratory distress or hypoxic. His laboratory studies demonstrate evidence of dehydration with elevated specific gravity in his urine as well as elevated BUN. This coincides with clinical examination. He is given small IV fluid bolus of 500 cc given his underlying heart failure. Since he lives with his who appears to be unable to take care of him and is also Covid positive, will seek observation placement for this patient. From my understanding, there may be a bed available later this morning. No other intervention required in the emergency room at this time. Departure - Departure Disposition: Refer to Observation Clinical Impression: COVID-19 - Discharge Information <Patrick Way - Last Filed: 04/30/21 13:30> Course - Vital Signs Last Recorded V/S: Last Vital Signs Temp 36.7 C 04/30/21 04:14 Pulse 112 H 04/30/21 04:14 Resp 25 H 04/30/21 04:14 BP 134/73 04/30/21 04:14 Pulse Ox 92 L 04/30/21 04:14 - Orders/Labs/Meds Orders: Active Orders 24 hr Category Date Time Status Admission Status [Patient Status] [ADT] Routine ADT 04/30/21 11:51 Active Blood Glucose Check, Bedside [RC] QIDACANDBED Care 04/30/21 12:42 Active Cardiac Monitoring [RC] . DIRECTED Care 04/30/21 11:51 Active Height and Weight [RC] DAILY Care 04/30/21 12:34 Active Intake and Output [RC] DAILY Care 04/30/21 12:34 Active Nurse Communication: Isolation [RC] ASDIRECTED Care 04/30/21 12:18 Active Oxygen Therapy [RC] ASDIRECTED Care 04/30/21 12:34 Active Pulse Oximetry [RC] CONTINUOUS Care 04/30/21 12:34 Active RT Aerosol Therapy [RC] ASDIRECTED Care 04/30/21 12:35 Active RT Incentive Spirometry [RC] ASDIRECTED Care 04/30/21 12:34 Active Up With Assistance [RC] ASDIRECTED Care 04/30/21 12:34 Active Up to Chair [RC] ASDIRECTED Care 04/30/21 12:34 Active Vital Signs [RC] Q6H Care 04/30/21 12:34 Active Consult to Case Management/Tank Shop Supervisor [CONS] Cons 04/30/21 12:34 Active Routine Consult to Television Director [CONS] Routine Cons 04/30/21 12:43 Active Consult to Spiritual Care [CONS] Routine Cons 04/30/21 12:34 Active OT Evaluation and Treatment [CONS] Routine Cons 04/30/21 12:36 Active PT Evaluation and Treatment [CONS] Routine Cons 04/30/21 12:36 Active Respiratory Care Assess and Treatment [CONS] Routine Cons 04/30/21 12:36 Active Consistent Carbohydrate Diet [DIET] Diet 04/30/21 Lunch Active C-REACTIVE PROTEIN [CHEM] AM Lab 05/01/21 05:11 Ordered C-REACTIVE PROTEIN [CHEM] AM Lab 05/02/21 05:11 Ordered C-REACTIVE PROTEIN [CHEM] AM Lab 05/03/21 05:11 Ordered C-REACTIVE PROTEIN [CHEM] AM Lab 05/04/21 05:11 Ordered CBC WITH AUTO DIFF [HEME] AM Lab 05/01/21 05:11 Ordered CBC WITH AUTO DIFF [HEME] AM Lab 05/02/21 05:11 Ordered CBC WITH AUTO DIFF [HEME] AM Lab 05/03/21 05:11 Ordered CBC WITH AUTO DIFF [HEME] AM Lab 05/04/21 05:11 Ordered COMPREHENSIVE METABOLIC PN,CMP [CHEM] AM Lab 05/01/21 05:11 Ordered COMPREHENSIVE METABOLIC PN,CMP [CHEM] AM Lab 05/02/21 05:11 Ordered COMPREHENSIVE METABOLIC PN,CMP [CHEM] AM Lab 05/03/21 05:11 Ordered COMPREHENSIVE METABOLIC PN,CMP [CHEM] AM Lab 05/04/21 05:11 Ordered D-DIMER QUANTITATIVE [COAG] Q48H Lab 05/02/21 05:11 Ordered D-DIMER QUANTITATIVE [COAG] Q48H Lab 05/04/21 05:11 Ordered D-DIMER QUANTITATIVE [COAG] Q48H Lab 05/06/21 05:11 Ordered MAGNESIUM [CHEM] AM Lab 05/01/21 05:11 Ordered MAGNESIUM [CHEM] AM Lab 05/02/21 05:11 Ordered MAGNESIUM [CHEM] AM Lab 05/03/21 05:11 Ordered MAGNESIUM [CHEM] AM Lab 05/04/21 05:11 Ordered VITAMIN D,25-HYDROXY [CHEM] Routine Lab 04/30/21 12:42 Received Acetaminophen [TylenoL] Med 04/30/21 12:34 Active 650 mg PO Q4H PRN Albuterol [Proventil HFA] Med 04/30/21 12:34 Active See Dose Instructions INH Q2H PRN Albuterol [Proventil Neb Soln] Med 04/30/21 12:34 Active 2.5 mg NEB Q2H PRN Albuterol/Ipratropium [DuoNeb 3.0-0.5 MG/3 ML] Med 04/30/21 12:34 Active 3 ml NEB QIDRT PRN Aspirin Med 05/01/21 09:00 Active 81 mg PO DAILY Docusate Sodium/Sennosides [Senna Plus] Med 04/30/21 12:34 Active 1 tab PO BID PRN Enoxaparin [Lovenox] Med 04/30/21 14:00 Active 40 mg SUBCUT DAILY Insulin Lispro [HumaLOG] Med 04/30/21 17:00 Active See Protocol SUBCUT QIDACANDBED Ondansetron [Zofran] Med 04/30/21 12:34 Active 4 mg IV Q6H PRN Remdesivir 100 mg Med 05/01/21 14:00 Active Sodium Chloride 0.9% [Normal Saline] 100 ml IV Q24H Remdesivir 200 mg Med 04/30/21 14:00 Active Sodium Chloride 0.9% [Normal Saline] 250 ml IV ONETIME Tamsulosin [Flomax] Med 04/30/21 21:00 Active 0.4 mg PO BEDTIME carvediloL [Coreg] Med 04/30/21 21:00 Active 3.125 mg PO BID Isolation [COMM] Stat Oth 04/30/21 12:18 Ordered Precautions [COMM] Routine Oth 04/30/21 12:37 Ordered Medication Orders Acetaminophen (Acetaminophen 325 Mg Tab) 650 mg PO Q4H PRN PRN Reason: Pain (Mild 1-3)/fever Albuterol (Albuterol 0.083% 2.5 Mg/3 Ml Neb Soln) 2.5 mg NEB Q2H PRN PRN Reason: Shortness Of Breath/wheezing Albuterol (Albuterol 6.7 Gm Inhaler) 0 gm INH Q2H PRN PRN Reason: SOB/Wheezing Albuterol/Ipratropium (Albuterol/Ipratropium 3.0-0.5 Mg/3 Ml Neb Soln) 3 ml NEB QIDRT PRN PRN Reason: Shortness Of Breath/wheezing Aspirin (Aspirin 81 Mg Tab.Chew) 81 mg PO DAILY KEVIN Carvedilol (Carvedilol 3.125 Mg Tab) 3.125 mg PO BID [facility] Enoxaparin Sodium (Enoxaparin 40 Mg/0.4 Ml Syringe) 40 mg SUBCUT DAILY [facility] Remdesivir 200 mg/ Sodium (Chloride) 250 mls @ 250 mls/hr IV ONETIME [facility] Stop: 04/30/21 18:00 Remdesivir 100 mg/ Sodium (Chloride) 100 mls @ 100 mls/hr IV Q24H [facility] Stop: 05/04/21 14:59 Insulin Human Lispro (Insulin Lispro 100 Unit/Ml 3 Ml Kwikpen) 0 unit SUBCUT QIDACANDBED [facility]; Protocol Ondansetron HCl (Ondansetron 4 Mg/2 Ml Sdv) 4 mg IV Q6H PRN PRN Reason: Nausea/Vomiting Senna/Docusate Sodium (Docusate Sodium/Sennosides 50-8.6 Mg Tab) 1 tab PO BID PRN PRN Reason: Constipation Tamsulosin HCl (Tamsulosin 0.4 Mg Cap.Er) 0.4 mg PO BEDTIME [facility] Labs: Laboratory Tests 04/30/21 04/30/21 04/30/21 Range/Units 04:31 04:53 04:53 WBC 5.30 (4.23-9.07) K/mm3 RBC 3.92 L (4.63-6.08) M/mm3 Hgb 14.4 (13.7-17.5) gm/dl Hct 42.1 (40.1-51.0) % MCV 107.4 H (79.0-92.2) fl MCH 36.7 H (25.7-32.2) pg MCHC 34.2 (32.2-35.5) g/dl RDW Std Deviation 52.4 H (35.1-43.9) fL Plt Count 109 L (163-337) K/mm3 MPV 11.0 (9.4-12.3) fl Neut % (Auto) 92.0 H (34.0-67.9) % Lymph % (Auto) 4.0 L (21.8-53.1) % [place] % (Auto) 3.6 L (5.3-12.2) % Eos % (Auto) 0 L (0.8-7.0) Baso % (Auto) 0.0 L (0.1-1.2) % Neut # (Auto) 4.88 (1.78-5.38) K/mm3 Lymph # (Auto) 0.21 L (1.32-3.57) K/mm3 [place] # (Auto) 0.19 L (0.30-0.82) K/mm3 Eos # (Auto) 0.00 L (0.04-0.54) K/mm3 Baso # (Auto) 0.00 L (0.01-0.08) K/mm3 Manual Slide Review Abnormal smear D-Dimer, Quantitative (0.19-0.50) mg/L Sodium (136-145) mEq/L Potassium (3.5-5.1) mEq/L Chloride (98-107) mEq/L Carbon Dioxide (21-32) mEq/L Anion Gap (5-15) BUN (7-18) mg/dL Creatinine (0.7-1.3) mg/dL Est Cr Clr Drug Dosing mL/min Estimated GFR (MDRD) (>60) mL/min BUN/Creatinine Ratio (14-18) Glucose (70-99) mg/dL Hemoglobin A1c ( - 5.6) % Calcium (8.5-10.1) mg/dL Magnesium (1.8-2.4) mg/dL Urine Color Yellow (Yellow) Urine Appearance Clear (Clear) Urine pH 5.0 (5.0-8.0) Ur Specific [place] > or = 1.030 (1.005-1.030) Urine Protein 1+ H (Negative) Urine Glucose (UA) Trace H (Negative) Urine Ketones Trace H (Negative) Urine Occult Blood 1+ H (Negative) Urine Nitrite Negative (Negative) Urine Bilirubin Negative (Negative) Urine Urobilinogen 0.2 (0.2-1.0) Ur Leukocyte Esterase Negative (Negative) U Hyaline Cast (Auto) 0-5 (0-5) /lpf Urine RBC 0-5 (0-5) /hpf Urine WBC 0-5 (0-5) /hpf Ur Epithelial Cells 0-5 (0-5) /hpf Urine Bacteria Moderate H (FEW) /hpf Urine Mucus Moderate H (FEW) /hpf Urine Yeast Few H (NOT SEEN) Ketones 1.51 (0.0-0.3) mM 04/30/21 04/30/21 04/30/21 Range/Units 04:53 12:42 12:42 WBC (4.23-9.07) K/mm3 RBC (4.63-6.08) M/mm3 Hgb (13.7-17.5) gm/dl Hct (40.1-51.0) % MCV (79.0-92.2) fl MCH (25.7-32.2) pg MCHC (32.2-35.5) g/dl RDW Std Deviation (35.1-43.9) fL Plt Count (163-337) K/mm3 MPV (9.4-12.3) fl Neut % (Auto) (34.0-67.9) % Lymph % (Auto) (21.8-53.1) % [place] % (Auto) (5.3-12.2) % Eos % (Auto) (0.8-7.0) Baso % (Auto) (0.1-1.2) % Neut # (Auto) (1.78-5.38) K/mm3 Lymph # (Auto) (1.32-3.57) K/mm3 [place] # (Auto) (0.30-0.82) K/mm3 Eos # (Auto) (0.04-0.54) K/mm3 Baso # (Auto) (0.01-0.08) K/mm3 Manual Slide Review D-Dimer, Quantitative 2.73 H (0.19-0.50) mg/L Sodium 132 L (136-145) mEq/L Potassium 4.0 (3.5-5.1) mEq/L Chloride 98 (98-107) mEq/L Carbon Dioxide 20 L (21-32) mEq/L Anion Gap 18.0 H (5-15) BUN 22 H (7-18) mg/dL Creatinine 1.2 (0.7-1.3) mg/dL Est Cr Clr Drug Dosing 47.93 mL/min Estimated GFR (MDRD) 58 (>60) mL/min BUN/Creatinine Ratio 18.3 H (14-18) Glucose 224 H (70-99) mg/dL Hemoglobin A1c 6.9 H ( - 5.6) % Calcium 8.2 L (8.5-10.1) mg/dL Magnesium 1.6 L (1.8-2.4) mg/dL Urine Color (Yellow) Urine Appearance (Clear) Urine pH (5.0-8.0) Ur Specific [place] (1.005-1.030) Urine Protein (Negative) Urine Glucose (UA) (Negative) Urine Ketones (Negative) Urine Occult Blood (Negative) Urine Nitrite (Negative) Urine Bilirubin (Negative) Urine Urobilinogen (0.2-1.0) Ur Leukocyte Esterase (Negative) U Hyaline Cast (Auto) (0-5) /lpf Urine RBC (0-5) /hpf Urine WBC (0-5) /hpf Ur Epithelial Cells (0-5) /hpf Urine Bacteria (FEW) /hpf Urine Mucus (FEW) /hpf Urine Yeast (NOT SEEN) Ketones (0.0-0.3) mM Meds: Medications Generic Name Dose Route Start Last Admin Trade Name Freq PRN Reason Stop Dose Admin Acetaminophen 650 mg 04/30/21 12:34 Acetaminophen 325 Mg Tab PO Q4H PRN Pain (Mild 1-3)/fever Albuterol 2.5 mg 04/30/21 12:34 Albuterol 0.083% 2.5 Mg/3 Ml Neb Soln NEB Q2H PRN Shortness Of Breath/wheezing Albuterol 0 gm 04/30/21 12:34 Albuterol 6.7 Gm Inhaler INH Q2H PRN SOB/Wheezing Albuterol/Ipratropium 3 ml 04/30/21 12:34 Albuterol/Ipratropium 3.0-0.5 Mg/3 Ml Neb Soln NEB QIDRT PRN Shortness Of Breath/wheezing Aspirin 81 mg 05/01/21 09:00 Aspirin 81 Mg Tab.Chew PO DAILY KEVIN Carvedilol 3.125 mg 04/30/21 21:00 Carvedilol 3.125 Mg Tab PO BID KEVIN Enoxaparin Sodium 40 mg 04/30/21 14:00 Enoxaparin 40 Mg/0.4 Ml Syringe SUBCUT DAILY KEVIN Remdesivir 200 mg/ Sodium 250 mls @ 250 mls/hr 04/30/21 14:00 Chloride IV 04/30/21 18:00 ONETIME KEVIN Remdesivir 100 mg/ Sodium 100 mls @ 100 mls/hr 05/01/21 14:00 Chloride IV 05/04/21 14:59 Q24H KEVIN Insulin Human Lispro 0 unit 04/30/21 17:00 Insulin Lispro 100 Unit/Ml 3 Ml Kwikpen SUBCUT QIDACANDBED [facility] Protocol Ondansetron HCl 4 mg 04/30/21 12:34 Ondansetron 4 Mg/2 Ml Sdv IV Q6H PRN Nausea/Vomiting Senna/Docusate Sodium 1 tab 04/30/21 12:34 Docusate Sodium/Sennosides 50-8.6 Mg Tab PO BID PRN Constipation Tamsulosin HCl 0.4 mg 04/30/21 21:00 Tamsulosin 0.4 Mg Cap.Er PO BEDTIME KEVIN Discontinued Medications Generic Name Dose Route Start Last Admin Trade Name Freq PRN Reason Stop Dose Admin Sodium Chloride 500 mls @ 1,000 mls/hr 04/30/21 04:38 04/30/21 04:45 Normal Saline IV 04/30/21 05:07 1,000 mls/hr .BOLUS ONE Administration Magnesium Sulfate 2 gm/ Premix 50 mls @ 25 mls/hr 04/30/21 05:37 04/30/21 05:51 IV 04/30/21 07:36 25 mls/hr ONETIME ONE Administration - Re-Assessments/Exams Free Text/Narrative Re-Assessment/Exam: 04/30/21 07:[address] Alberts for change of shift. I agree with his history and physical examination as documented. At this time, I am informed by Mikaela LOUIS that it does not look promising that we will have a bed available at this facility today, but that it is too early to tell. If no beds are available here, we will need to look to transfer the patient. The patient, un derstandably, does not want to be transferred, but I explained that we cannot board him in the ED indefinitely. He seems understand. He had no requests at this time. 04/30/21 09:53 Notified that a bed has become available at [facility]. 04/30/21 10:[address] Antunez, Hospitalist at [facility], at 09:59. He was going to check bed availability, then call me back. I was subsequently notified that because the patient "fell", they felt that he would need 1-on-1, they do not have staffing for, therefore they declined admission. In fairness, I did not tell Dr. Antunez that the patient fell, I reported exactly what Dr. Alberts had reported to me, that the patient slid off the toilet. Rashmi LOUIS is going to transfer an ED nurse to Med-Surg, in order for [facility] to be able to accept patients. 04/30/21 10:[address] Sweeney at 10:38. He accepted the patient for placement into observation. Departure - Departure Time of Disposition: 10:40 Condition: Good - Discharge Information *PRESCRIPTION DRUG MONITORING PROGRAM REVIEWED*: Not Applicable *COPY OF PRESCRIPTION DRUG MONITORING REPORT IN PATIENT DANIEL: Not Applicable Sepsis Event Note (ED) - Focused Exam Vital Signs: Vital Signs Temp Pulse Resp BP Pulse Ox 04/30/21 04:14 36.7 C 112 H 25 H 134/73 92 L
[2021-04-30] MEDS ORDERED: Magnesium Sulfate/Water 2 GM in Premix Bag 1 BAG IV ONE (05:37)
--- NOTE | 2021-04-30 12:10 | PCM.HP.2 ---
H&P History of Present Illness - General Date of Service: 04/30/21 Admit Problem/Dx: Admission Diagnosis/Problem Admission Diagnosis/Problem Weakness Source of Information: Patient, Old Records, Provider, RN, RN Notes Reviewed History Limitations: Reports: No Limitations - History of Present Illness Initial Comments - Free Text/Narative: This is an 86-year-old male who presents to our ED in the very derrick builder hours of 04/30/2021 via [facility] due to generalized weakness. He reportedly was on the toilet and was too weak to get off so he slid down and then could not get off of the ground. He was uninjured denying any pain and did not hit his head or lose consciousness. He was in our ED on the evening of 04/29/2021 due to lightheadedness, dizziness, and weakness. He reports he tested positive for Covid on 04/25/2021. He lives at home with his who is also Covid positive. He reports he has had a fever and very minimal oral intake. On his initial visit twelve-lead EKG is obtained showing a sinus rhythm at 93 bpm with left axis deviation and enlarged P waves suggesting left atrial hypertrophy. There is a left anterior fascicular block pattern with right bundle branch block pattern QT was moderately prolonged. Labs at that time showed a leukopenia of 3.89 and a thrombocytopenia of 115. Sodium was low at 135. BUN was elevated at 22 and creatinine was 1.2 with a GFR of 58. Glucose was elevated at 150. Total bilirubin was 1.5. Troponin was 0.022 and CRP was 4.9. proBNP was 1662. He was given monoclonal antibodies, IV fluids and some Tylenol and discharged home. On return to the emergency room today he denies any chest pain, shortness of breath, vomiting, diarrhea. Twelve-lead EKG is again obtained showing a sinus tachycardia at 112 bpm with right axis deviation and a right bundle branch block. He does appear dry. Temp is 36.7 Celsius. Pulse 112. Respirations 25. Blood pressure 134/73. Pulse ox is 92% on room air. Labs are obtained with a WBC of 5.30. Hemoglobin 14.4. Platelet 209,000. Neutrophils are elevated at 92.0. Sodium is low at 132. Potassium 4.0. Chloride 98. Carbon dioxide 20. Anion gap is 18.0. BUN is 22. Creatinine 1.2. GFR is 58. Glucose is high at 224. Magnesium is 1.6. UA is obtained and shows concentrated urine with trace glucose, trace ketones, 1+ protein, 1+ occult blood, moderate bacteria and moderate mucus. Ketones are 1.51. He is given a 500 mL fluid bolus and 2 g of magnesium. Plan was to look at transferring the patient as no beds were available here however this fell through. A bed did open up. Patient was ultimately accepted for further Covid treatment and PT/OT for his generalized weakness. He will be inpatient with telemetry. He carries a history of CAD, cardiac bypass, CHF, HLD, HTN, GERD, BPH, arthritis, type II DM, polycythemia. He was never smoker. His PCP is Dr. Street. He sees Nettie Faye for Heme/Onc. He has a DNR/DNI. - Related Data Allergies/Adverse Reactions: Allergies Allergy/AdvReac Type Severity Reaction Status Date / Time erythromycin base Allergy Hives Verified 04/30/21 04:16 Home Medications: Home Meds metFORMIN HCl [Metformin HCl] 500 mg PO BID 10/13/15 [History] Aspirin 81 mg PO DAILY 10/13/19 [History] Hydroxyurea 500 mg PO DAILY 10/13/19 [History] Tamsulosin HCl 0.4 mg PO BEDTIME 10/13/19 [History] carvediloL [Carvedilol] 3.125 mg PO BID 10/13/19 [History] Pravastatin [Pravachol] 40 mg PO BEDTIME 04/29/21 [History] Past Medical History HEENT History: Reports: Cataract Cardiovascular History: Reports: Bypass, CAD, Heart Failure, High Cholesterol, Hypertension Respiratory History: Reports: None Gastrointestinal History: Reports: GERD Genitourinary History: Reports: BPH, Renal Calculus Musculoskeletal History: Reports: Arthritis Psychiatric History: Reports: None Endocrine/Metabolic History: Reports: Diabetes, Type II Hematologic History: Reports: Polycythemia Oncologic (Cancer) History: Reports: None - Infectious Disease History Infectious Disease History: Reports: Novel Coronavirus - Past Surgical History Cardiovascular Surgical History: Reports: Coronary Artery Bypass GI Surgical History: Reports: Cholecystectomy, Colonoscopy Social & Family History - Family History Family Medical History: No Pertinent Family History - Tobacco Use Tobacco Use Status *Q: Never Tobacco User Second Hand Smoke Exposure: No - Caffeine Use Caffeine Use: Reports: Coffee - Recreational Drug Use Recreational Drug Use: Yes - Living Situation & Occupation Living situation: Reports: , with Spouse (In their own home here in [place].) Occupation: Retired H&P Review of Systems - Review of Systems: Review Of Systems: See Below General: Reports: Malaise, Weakness, Fatigue, Decreased Appetite. Denies: Fever (Has had at times but none recently), Chills HEENT: Reports: No Symptoms. Denies: Headaches, Rhinitis, Sore Throat Pulmonary: Reports: Cough, Sputum. Denies: Shortness of Breath, Wheezing, Pleuritic Chest Pain Cardiovascular: Reports: Dyspnea on Exertion, Syncope (Appears to have had syncopal event on toilet prior to arrival). Denies: No Symptoms, Chest Pain, Palpitations, Edema, Lightheadedness (Recently but none currently) Gastrointestinal: Reports: No Symptoms. Denies: Abdominal Pain, Constipation, Diarrhea, Nausea, Vomiting Genitourinary: Reports: Frequency (Chronic), Other (Chronic nocturia with known BPH) Musculoskeletal: Reports: Muscle Pain (Generalized myalgias), Muscle Stiffness (Generalized) Skin: Reports: No Symptoms. Denies: Cyanosis Psychiatric: Reports: No Symptoms. Denies: Confusion Neurological: Reports: Difficulty Walking, Weakness. Denies: Dizziness, Headache, Numbness, Seizure, Syncope, Tingling, Tremors, Trouble Speaking, Change in Speech, Gait Disturbance Hematologic/Lymphatic: Reports: Other (History of polycythemia) Immunologic: Reports: No Symptoms Exam - Exam Exam: See Below - Vital Signs Vital Signs: Last Vital Signs Temp 98.0 F 04/30/21 04:14 Pulse 112 H 04/30/21 04:14 Resp 25 H 04/30/21 04:14 BP 134/73 04/30/21 04:14 Pulse Ox 92 L 04/30/21 04:14 Weight: 190 lb - Exam Quality Assessment: DVT Prophylaxis. No: Supplemental Oxygen, Urinary Catheter General: Alert, Oriented, Cooperative. No: Mild Distress HEENT: Conjunctiva Clear, EACs Clear, Posterior Pharynx Clear, Pupils Equal, Pupils Reactive, Other (Right upper eyelid proptosis and strabismus noted). No: Mucosa Moist & [employer] (Dry) Neck: Supple, Trachea Midline Lungs: Clear to Auscultation, Normal Respiratory Effort, Decreased Breath Sounds. No: Crackles, Rhonchi, Wheezing Cardiovascular: Regular Rate, Regular Rhythm, Other (Well-healed sternotomy scar noted on chest) GI/Abdominal Exam: Normal Bowel Sounds, Soft, Non-Tender, No Distention (Male) Exam: Deferred Rectal (Males) Exam: Deferred Back Exam: Normal Inspection, Full Range of Motion Extremities: Normal Inspection, Normal Range of Motion, Non-Tender, No Pedal Edema, Normal Capillary Refill Skin: Warm, Dry, Intact Neurological: Cranial Nerves Intact (Grossly) Neuro Extensive - Mental Status: Alert, Oriented x3, Normal Mood/Affect - Patient Data Lab Results Last 24 hrs: Laboratory Results - last 24 hr 04/30/21 04/30/21 04/30/21 Range/Units 04:31 04:53 04:53 WBC 5.30 (4.23-9.07) K/mm3 RBC 3.92 L (4.63-6.08) M/mm3 Hgb 14.4 (13.7-17.5) gm/dl Hct 42.1 (40.1-51.0) % MCV 107.4 H (79.0-92.2) fl MCH 36.7 H (25.7-32.2) pg MCHC 34.2 (32.2-35.5) g/dl RDW Std Deviation 52.4 H (35.1-43.9) fL Plt Count 109 L (163-337) K/mm3 MPV 11.0 (9.4-12.3) fl Neut % (Auto) 92.0 H (34.0-67.9) % Lymph % (Auto) 4.0 L (21.8-53.1) % [place] % (Auto) 3.6 L (5.3-12.2) % Eos % (Auto) 0 L (0.8-7.0) Baso % (Auto) 0.0 L (0.1-1.2) % Neut # (Auto) 4.88 (1.78-5.38) K/mm3 Lymph # (Auto) 0.21 L (1.32-3.57) K/mm3 [place] # (Auto) 0.19 L (0.30-0.82) K/mm3 Eos # (Auto) 0.00 L (0.04-0.54) K/mm3 Baso # (Auto) 0.00 L (0.01-0.08) K/mm3 Manual Slide Review Abnormal smear Sodium (136-145) mEq/L Potassium (3.5-5.1) mEq/L Chloride (98-107) mEq/L Carbon Dioxide (21-32) mEq/L Anion Gap (5-15) BUN (7-18) mg/dL Creatinine (0.7-1.3) mg/dL Est Cr Clr Drug Dosing mL/min Estimated GFR (MDRD) (>60) mL/min BUN/Creatinine Ratio (14-18) Glucose (70-99) mg/dL Calcium (8.5-10.1) mg/dL Magnesium (1.8-2.4) mg/dL Urine Color Yellow (Yellow) Urine Appearance Clear (Clear) Urine pH 5.0 (5.0-8.0) Ur Specific [place] > or = 1.030 (1.005-1.030) Urine Protein 1+ H (Negative) Urine Glucose (UA) Trace H (Negative) Urine Ketones Trace H (Negative) Urine Occult Blood 1+ H (Negative) Urine Nitrite Negative (Negative) Urine Bilirubin Negative (Negative) Urine Urobilinogen 0.2 (0.2-1.0) Ur Leukocyte Esterase Negative (Negative) U Hyaline Cast (Auto) 0-5 (0-5) /lpf Urine RBC 0-5 (0-5) /hpf Urine WBC 0-5 (0-5) /hpf Ur Epithelial Cells 0-5 (0-5) /hpf Urine Bacteria Moderate H (FEW) /hpf Urine Mucus Moderate H (FEW) /hpf Urine Yeast Few H (NOT SEEN) Ketones 1.51 (0.0-0.3) mM 04/30/21 Range/Units 04:53 WBC (4.23-9.07) K/mm3 RBC (4.63-6.08) M/mm3 Hgb (13.7-17.5) gm/dl Hct (40.1-51.0) % MCV (79.0-92.2) fl MCH (25.7-32.2) pg MCHC (32.2-35.5) g/dl RDW Std Deviation (35.1-43.9) fL Plt Count (163-337) K/mm3 MPV (9.4-12.3) fl Neut % (Auto) (34.0-67.9) % Lymph % (Auto) (21.8-53.1) % [place] % (Auto) (5.3-12.2) % Eos % (Auto) (0.8-7.0) Baso % (Auto) (0.1-1.2) % Neut # (Auto) (1.78-5.38) K/mm3 Lymph # (Auto) (1.32-3.57) K/mm3 [place] # (Auto) (0.30-0.82) K/mm3 Eos # (Auto) (0.04-0.54) K/mm3 Baso # (Auto) (0.01-0.08) K/mm3 Manual Slide Review Sodium 132 L (136-145) mEq/L Potassium 4.0 (3.5-5.1) mEq/L Chloride 98 (98-107) mEq/L Carbon Dioxide 20 L (21-32) mEq/L Anion Gap 18.0 H (5-15) BUN 22 H (7-18) mg/dL Creatinine 1.2 (0.7-1.3) mg/dL Est Cr Clr Drug Dosing 47.93 mL/min Estimated GFR (MDRD) 58 (>60) mL/min BUN/Creatinine Ratio 18.3 H (14-18) Glucose 224 H (70-99) mg/dL Calcium 8.2 L (8.5-10.1) mg/dL Magnesium 1.6 L (1.8-2.4) mg/dL Urine Color (Yellow) Urine Appearance (Clear) Urine pH (5.0-8.0) Ur Specific [place] (1.005-1.030) Urine Protein (Negative) Urine Glucose (UA) (Negative) Urine Ketones (Negative) Urine Occult Blood (Negative) Urine Nitrite (Negative) Urine Bilirubin (Negative) Urine Urobilinogen (0.2-1.0) Ur Leukocyte Esterase (Negative) U Hyaline Cast (Auto) (0-5) /lpf Urine RBC (0-5) /hpf Urine WBC (0-5) /hpf Ur Epithelial Cells (0-5) /hpf Urine Bacteria (FEW) /hpf Urine Mucus (FEW) /hpf Urine Yeast (NOT SEEN) Ketones (0.0-0.3) mM Result Diagrams: 04/30/21 04:53 04/30/21 04:53 Sepsis Event Note - Focused Exam Vital Signs: Vital Signs Temp Pulse Resp BP Pulse Ox 04/30/21 04:14 98.0 F 112 H 25 H 134/73 92 L - Problem List (1) Hypomagnesemia SNOMED Code(s): 473527980 ICD Code: E83.42 - HYPOMAGNESEMIA Status: Acute Priority: Medium Current Visit: Yes (2) COVID-19 SNOMED Code(s): 448100063 ICD Code: U07.1 - COVID-19 Status: Acute Priority: High Current Visit: Yes (3) Generalized weakness SNOMED Code(s): 40646791 ICD Code: R53.1 - WEAKNESS Status: Acute Priority: High Current Visit: Yes (4) Hyponatremia SNOMED Code(s): 35739972 ICD Code: E87.1 - HYPO-OSMOLALITY AND HYPONATREMIA Status: Acute Priority: Medium Current Visit: Yes (5) Mild dehydration SNOMED Code(s): 3080079679829 ICD Code: E86.0 - DEHYDRATION Status: Acute Priority: Medium Current Visit: Yes (6) Type II diabetes mellitus SNOMED Code(s): 89413532 ICD Code: E11.9 - TYPE 2 DIABETES MELLITUS WITHOUT COMPLICATIONS Status: Chronic Priority: Low Current Visit: No Qualifiers: Diabetes mellitus group home insulin use: without group home use Diabetes mellitus complication status: with other specified complication Qualified Code(s): E11.69 - Type 2 diabetes mellitus with other specified complication (7) Thrombocytopenia SNOMED Code(s): 855227295 ICD Code: D69.6 - THROMBOCYTOPENIA, UNSPECIFIED Status: Acute Priority: Medium Current Visit: Yes (8) Polycythemia SNOMED Code(s): 540613076 ICD Code: D75.1 - SECONDARY POLYCYTHEMIA Status: Chronic Priority: Low Current Visit: No (9) History of heart bypass surgery SNOMED Code(s): 721740329 ICD Code: Z95.1 - PRESENCE OF AORTOCORONARY BYPASS GRAFT Status: Chronic Priority: Low Current Visit: No (10) HLD (hyperlipidemia) SNOMED Code(s): 64024146 ICD Code: E78.5 - HYPERLIPIDEMIA, UNSPECIFIED Status: Chronic Priority: Low Current Visit: No Qualifiers: Hyperlipidemia type: unspecified Qualified Code(s): E78.5 - Hyperlipidemia, unspecified (11) HTN (hypertension) SNOMED Code(s): 20330362 ICD Code: I10 - ESSENTIAL (PRIMARY) HYPERTENSION Status: Chronic Priority: Medium Current Visit: No Qualifiers: Hypertension type: unspecified Qualified Code(s): I10 - Essential (primary) hypertension (12) CAD (coronary artery disease) SNOMED Code(s): 61462801 ICD Code: I25.10 - ATHSCL HEART DISEASE OF [place] CORONARY ARTERY W/O ANG PCTRS Status: Chronic Priority: Low Current Visit: No Qualifiers: Coronary Disease-Associated Artery/Lesion type: bypass graft [place] vs. transplanted heart: [place] heart Associated angina: without angina Qualified Code(s): I25.810 - Atherosclerosis of coronary artery bypass graft(s) without angina pectoris (13) GERD (gastroesophageal reflux disease) SNOMED Code(s): 271388615 ICD Code: K21.9 - GASTRO-ESOPHAGEAL REFLUX DISEASE WITHOUT ESOPHAGITIS Status: Chronic Priority: Low Current Visit: No Qualifiers: Esophagitis presence: esophagitis presence not specified Qualified Code(s): K21.9 - Gastro-esophageal reflux disease without esophagitis (14) BPH (benign prostatic hyperplasia) SNOMED Code(s): 317545102 ICD Code: N40.0 - BENIGN PROSTATIC HYPERPLASIA WITHOUT LOWER URINRY TRACT SYMP Status: Chronic Priority: Low Current Visit: No Qualifiers: Lower urinary tract symptom presence: symptoms absent Qualified Code(s): N40.0 - Benign prostatic hyperplasia without lower urinary tract symptoms (15) Elevated d-dimer SNOMED Code(s): 937000296 ICD Code: R79.89 - OTHER SPECIFIED ABNORMAL FINDINGS OF BLOOD CHEMISTRY Status: Acute Priority: High Current Visit: Yes (16) Vitamin D deficiency SNOMED Code(s): 53465538 ICD Code: E55.9 - VITAMIN D DEFICIENCY, UNSPECIFIED Status: Acute Priority: Medium Current Visit: Yes Problem List Initiated/Reviewed/Updated: Yes Orders Last 24hrs: Active Orders 24 hr Category Date Time Status Admission Status [Patient Status] [ADT] Routine ADT 04/30/21 11:51 Active Cardiac Monitoring [RC] . DIRECTED Care 04/30/21 11:51 Active Assessment/Plan Comment:: COVID-19 Generalized weakness Elevated D-Dimer * O2 as needed to keep saturations between 87 and 95%. * Remdesivir for 5 days * We will hold off dexamethasone for now * Continuous pulse oximetry * Telemetry * PT/OT * CM/SW for possible placement * CTA with PE protocol ordered * Daily labs * Airborne/contact precautions * I-S * Respiratory therapy consultation * As needed albuterol nebulizer * As needed DuoNeb * As needed albuterol MDI * [employer] Cutting [employer] Operator consultation Hyponatremia Mild dehydration * Given IV fluids in the ED * Caution with fluids due to Covid pneumonia diagnosis and underlying heart failure Hypomagnesemia * Supplemented in ED * Recheck a.m. labs Vitamin D Deficiency * Start supplementation * PCP follow-up Type II diabetes mellitus * Check A1c * Hold home Metformin * Blood glucose checks 4 times daily before meals and bedtime * Medium sliding scale insulin * Consistent carbohydrate diet Thrombocytopenia * Likely secondary to COVID-19 as above * Monitor and discontinue Lovenox if indicated Polycythemia * No acute concerns * Hold hydroxyurea for now History of heart bypass surgery HLD (hyperlipidemia) HTN (hypertension) CAD (coronary artery disease) * Telemetry * No acute concerns * Home medications as directed GERD (gastroesophageal reflux disease) * No acute concerns BPH (benign prostatic hyperplasia) * No acute concerns Code Status: DNR/DNI PCP: Dr. Street Hematology/Oncology: Nettie Salgado NP DVT prophylaxis: Lovenox Social: Patient resides with in a home they own. She also has COVID-19 pneumonia Disposition: Patient admitted to the medical floor on telemetry for treatment of his underlying COVID-19 pneumonia and generalized weakness. Patient will need PT/OT and possible placement. Length of stay likely 4 to 5 days. - Mortality Measure Prognosis:: Good
[2021-04-30] MEDS ORDERED: Ondansetron 4 MG/2 ML SDV IV PRN (12:34)
[2021-04-30] MEDS ORDERED: Albuterol 6.7 GM Inhaler INH PRN (12:34)
[2021-04-30] MEDS ORDERED: Acetaminophen 325 MG Tab PO PRN (12:34)
[2021-04-30] MEDS ORDERED: Albuterol/Ipratropium 3.0-0.5 MG/3 ML Neb Soln NEB PRN (12:34)
[2021-04-30] MEDS ORDERED: Albuterol 0.083% 2.5 MG/3 ML Neb Soln NEB PRN (12:34)
[2021-04-30 13:10] LABS: HEMOGLOBIN A1C 6.9 %
[2021-04-30] MEDS ORDERED: REMDESIVIR 200 MG in Sodium Chloride 0.9% 250 ML IV SCH (14:00)
[2021-04-30] MEDS ORDERED: Iopamidol 755 Mg/ML 100 ML Bottle IVPUSH ONE (14:48)
[2021-04-30] MEDS ORDERED: Sodium Chloride 0.9% 10 ML Syringe FLUSH PRN (14:48)
--- NOTE | 2021-04-30 14:58 | CT ---
CT chest Technique: Multiple axial sections were obtained through the chest. Intravenous contrast was utilized. Study has been performed as a pulmonary angiogram protocol. Comparison: Prior chest x-ray performed on 04/29/21, no prior chest CT study is available. Findings: Pulmonary arteries are well opacified. No filling defects are seen to indicate pulmonary embolism. Thoracic aorta shows diffuse atherosclerotic calcification with no aneurysm. Mediastinum shows no adenopathy. No axillary adenopathy is seen. Heart is enlarged. Surgical clips are seen from prior cholecystectomy. No acute abnormality is seen within the visualized upper abdominal structures. Patchy areas of increased densities are seen within the chest. Difficult to exclude COVID - 19 pneumonia. Please correlate. Bone window settings were reviewed which show scattered degenerative change within the spine. No acute osseous abnormality is appreciated. Impression: 1. No findings of pulmonary embolism. 2. Patchy areas of increased densities are seen throughout both sides of the chest raising the possibility of COVID - 19 pneumonia. 3. Other chronic findings as described above. Diagnostic code #3
[2021-04-30] MEDS ORDERED: Sodium Chloride 0.9% 100 ML IV SCH (15:00)
[2021-04-30] MEDS ORDERED: Sodium Chloride 0.9% 250 ML ONE (15:56)
[2021-04-30] MEDS: Cholecalciferol (Vitamin D3) 5,000 UNIT Cap PO SCH (16:10)
[2021-04-30] MEDS: Enoxaparin 40 MG/0.4 ML Syringe SUBCUT SCH (16:13)
--- NOTE | 2021-04-30 16:44 | US ---
Bilateral lower extremity deep venous ultrasound: Duplex and color Doppler evaluation were obtained of the right and left common femoral, proximal greater saphenous, superficial femoral, popliteal, posterior tibial and peroneal veins. Comparison: No prior venous imaging is available. Findings: Normal phasic flow, augmentation and compression is seen. Impression: 1. No findings of deep venous thrombosis are seen within either the right or left lower extremity. Diagnostic code #1
[2021-04-30] MEDS: Insulin Lispro 100 Unit/ML 3 ML KwikPen SUBCUT SCH ×2 (17:18→21:32)
[2021-04-30] MEDS: Tamsulosin 0.4 MG Cap.ER PO SCH (21:32)
[2021-04-30] MEDS: Carvedilol 3.125 MG Tab PO SCH (23:00)
[2021-05-01] MEDS: Insulin Lispro 100 Unit/ML 3 ML KwikPen SUBCUT SCH ×4 (06:49→21:32)
--- NOTE | 2021-05-01 07:09 | PCM.PN ---
- General Info Date of Service: 05/01/21 Admission Dx/Problem (Free Text): Admission Diagnosis/Problem Admission Diagnosis/Problem Weakness Functional Status: Reports: Pain Controlled, Tolerating Diet, Ambulating, Urinating, Incentive Spirometry, Other (Acapella ). Denies: New Symptoms - Review of Systems General: Reports: Weakness. Denies: Fever, Fatigue, Malaise, Chills HEENT: Reports: No Symptoms. Denies: Headaches, Sore Throat Pulmonary: Reports: No Symptoms. Denies: Shortness of Breath, Pleuritic Chest Pain, Cough, Sputum, Wheezing Cardiovascular: Reports: No Symptoms. Denies: Chest Pain, Palpitations, Dyspnea on Exertion, Edema Gastrointestinal: Reports: No Symptoms. Denies: Abdominal Pain, Constipation, Diarrhea, Nausea, Vomiting Genitourinary: Reports: No Symptoms. Denies: Pain Musculoskeletal: Reports: Other (Generalized myalgias) Skin: Reports: No Symptoms. Denies: Cyanosis Neurological: Reports: Difficulty Walking, Weakness, Gait Disturbance. Denies: Confusion, Dizziness, Headache, Numbness, Pre-Existing Deficit, Seizure, Syncope, Tingling, Trouble Speaking, Change in Speech Psychiatric: Reports: No Symptoms - Patient Data Vitals - Most Recent: Last Vital Signs Temp 97.0 F 04/30/21 19:38 Pulse 73 05/01/21 03:25 Resp 18 05/01/21 03:25 BP 95/69 05/01/21 03:25 Pulse Ox 96 05/01/21 03:25 Weight - Most Recent: 188 lb 3 oz I&O - Last 24 Hours: Intake & Output 04/30/21 05/01/21 05/01/21 22:59 06:59 14:59 Intake Total 490 Output Total 250 Balance 240 Lab Results Last 24 Hours: Laboratory Results - last 24 hr 04/30/21 04/30/21 04/30/21 Range/Units 12:42 12:42 12:42 WBC (4.23-9.07) K/mm3 RBC (4.63-6.08) M/mm3 Hgb (13.7-17.5) gm/dl Hct (40.1-51.0) % MCV (79.0-92.2) fl MCH (25.7-32.2) pg MCHC (32.2-35.5) g/dl RDW Std Deviation (35.1-43.9) fL Plt Count (163-337) K/mm3 MPV (9.4-12.3) fl Neut % (Auto) (34.0-67.9) % Lymph % (Auto) (21.8-53.1) % Park % (Auto) (5.3-12.2) % Eos % (Auto) (0.8-7.0) Baso % (Auto) (0.1-1.2) % Neut # (Auto) (1.78-5.38) K/mm3 Lymph # (Auto) (1.32-3.57) K/mm3 [place] # (Auto) (0.30-0.82) K/mm3 Eos # (Auto) (0.04-0.54) K/mm3 Baso # (Auto) (0.01-0.08) K/mm3 D-Dimer, Quantitative 2.73 H (0.19-0.50) mg/L Sodium (136-145) mEq/L Potassium (3.5-5.1) mEq/L Chloride (98-107) mEq/L Carbon Dioxide (21-32) mEq/L Anion Gap (5-15) BUN (7-18) mg/dL Creatinine (0.7-1.3) mg/dL Est Cr Clr Drug Dosing mL/min Estimated GFR (MDRD) (>60) mL/min BUN/Creatinine Ratio (14-18) Glucose (70-99) mg/dL POC Glucose (70-99) mg/dL Hemoglobin A1c 6.9 H ( - 5.6) % Calcium (8.5-10.1) mg/dL Magnesium (1.8-2.4) mg/dL Total Bilirubin (0.2-1.0) mg/dL AST (15-37) U/L ALT (16-63) U/L Alkaline Phosphatase (46-116) U/L C-Reactive Protein (<1.0) mg/dL Total Protein (6.4-8.2) g/dl Albumin (3.4-5.0) g/dl Globulin gm/dL Albumin/Globulin Ratio (1-2) Vitamin D 25-Hydroxy 15.9 L (30.0-100.0) ng/ml 04/30/21 04/30/2105/01/21 Range/Units 17:08 21:23 05:40 WBC 3.07 L (4.23-9.07) K/mm3 RBC 4.09 L (4.63-6.08) M/mm3 Hgb 14.7 (13.7-17.5) gm/dl Hct 43.7 (40.1-51.0) % MCV 106.8 H (79.0-92.2) fl MCH 35.9 H (25.7-32.2) pg MCHC 33.6 (32.2-35.5) g/dl RDW Std Deviation 53.7 H (35.1-43.9) fL Plt Count 108 L (163-337) K/mm3 MPV 11.4 (9.4-12.3) fl Neut % (Auto) 77.2 H (34.0-67.9) % Lymph % (Auto) 16.3 L (21.8-53.1) % Park % (Auto) 5.2 L (5.3-12.2) % Eos % (Auto) 1.0 (0.8-7.0) Baso % (Auto) 0.0 L (0.1-1.2) % Neut # (Auto) 2.37 (1.78-5.38) K/mm3 Lymph # (Auto) 0.50 L (1.32-3.57) K/mm3 [place] # (Auto) 0.16 L (0.30-0.82) K/mm3 Eos # (Auto) 0.03 L (0.04-0.54) K/mm3 Baso # (Auto) 0.00 L (0.01-0.08) K/mm3 D-Dimer, Quantitative (0.19-0.50) mg/L Sodium (136-145) mEq/L Potassium (3.5-5.1) mEq/L Chloride (98-107) mEq/L Carbon Dioxide (21-32) mEq/L Anion Gap (5-15) BUN (7-18) mg/dL Creatinine (0.7-1.3) mg/dL Est Cr Clr Drug Dosing mL/min Estimated GFR (MDRD) (>60) mL/min BUN/Creatinine Ratio (14-18) Glucose (70-99) mg/dL POC Glucose 110 H 107 H (70-99) mg/dL Hemoglobin A1c ( - 5.6) % Calcium (8.5-10.1) mg/dL Magnesium (1.8-2.4) mg/dL Total Bilirubin (0.2-1.0) mg/dL AST (15-37) U/L ALT (16-63) U/L Alkaline Phosphatase (46-116) U/L C-Reactive Protein (<1.0) mg/dL Total Protein (6.4-8.2) g/dl Albumin (3.4-5.0) g/dl Globulin gm/dL Albumin/Globulin Ratio (1-2) Vitamin D 25-Hydroxy (30.0-100.0) ng/ml 05/01/21 05/01/21 Range/Units 05:40 06:45 WBC (4.23-9.07) K/mm3 RBC (4.63-6.08) M/mm3 Hgb (13.7-17.5) gm/dl Hct (40.1-51.0) % MCV (79.0-92.2) fl MCH (25.7-32.2) pg MCHC (32.2-35.5) g/dl RDW Std Deviation (35.1-43.9) fL Plt Count (163-337) K/mm3 MPV (9.4-12.3) fl Neut % (Auto) (34.0-67.9) % Lymph % (Auto) (21.8-53.1) % Park % (Auto) (5.3-12.2) % Eos % (Auto) (0.8-7.0) Baso % (Auto) (0.1-1.2) % Neut # (Auto) (1.78-5.38) K/mm3 Lymph # (Auto) (1.32-3.57) K/mm3 [place] # (Auto) (0.30-0.82) K/mm3 Eos # (Auto) (0.04-0.54) K/mm3 Baso # (Auto) (0.01-0.08) K/mm3 D-Dimer, Quantitative (0.19-0.50) mg/L Sodium 134 L (136-145) mEq/L Potassium 3.6 (3.5-5.1) mEq/L Chloride 100 (98-107) mEq/L Carbon Dioxide 22 (21-32) mEq/L Anion Gap 15.6 H (5-15) BUN 22 H (7-18) mg/dL Creatinine 1.0 (0.7-1.3) mg/dL Est Cr Clr Drug Dosing 57.52 mL/min Estimated GFR (MDRD) > 60 (>60) mL/min BUN/Creatinine Ratio 22.0 H (14-18) Glucose 160 H (70-99) mg/dL POC Glucose 138 H (70-99) mg/dL Hemoglobin A1c ( - 5.6) % Calcium 7.9 L (8.5-10.1) mg/dL Magnesium 2.1 (1.8-2.4) mg/dL Total Bilirubin 1.3 H (0.2-1.0) mg/dL AST 162 H (15-37) U/L ALT 53 (16-63) U/L Alkaline Phosphatase 64 (46-116) U/L C-Reactive Protein 11.1 H* (<1.0) mg/dL Total Protein 5.7 L (6.4-8.2) g/dl Albumin 2.9 L (3.4-5.0) g/dl Globulin 2.8 gm/dL Albumin/Globulin Ratio 1.0 (1-2) Vitamin D 25-Hydroxy (30.0-100.0) ng/ml Med Orders - Current: Current Medications Acetaminophen (Acetaminophen 325 Mg Tab) 650 mg PO Q4H PRN PRN Reason: Pain (Mild 1-3)/fever Last Admin: 04/30/21 16:11 Dose: 650 mg Documented by: Albuterol (Albuterol 0.083% 2.5 Mg/3 Ml Neb Soln) 2.5 mg NEB Q2H PRN PRN Reason: Shortness Of Breath/wheezing Albuterol (Albuterol 6.7 Gm Inhaler) 0 gm INH Q2H PRN PRN Reason: SOB/Wheezing Albuterol/Ipratropium (Albuterol/Ipratropium 3.0-0.5 Mg/3 Ml Neb Soln) 3 ml NEB QIDRT PRN PRN Reason: Shortness Of Breath/wheezing Aspirin (Aspirin 81 Mg Tab.Chew) 81 mg PO DAILY KEVIN Carvedilol (Carvedilol 3.125 Mg Tab) 3.125 mg PO BID [facility] Last Admin: 04/30/21 23:00 Dose: 3.125 mg Documented by: Cholecalciferol (Cholecalciferol (Vitamin D3) 5,000 Unit Cap) 5,000 unit PO DAILY [facility] Last Admin: 04/30/21 16:10 Dose: 5,000 unit Documented by: Enoxaparin Sodium (Enoxaparin 40 Mg/0.4 Ml Syringe) 40 mg SUBCUT DAILY [facility] Last Admin: 04/30/21 16:13 Dose: 40 mg Documented by: Remdesivir 100 mg/ Sodium (Chloride) 100 mls @ 100 mls/hr IV Q24H [facility] Stop: 05/04/21 14:59 Insulin Human Lispro (Insulin Lispro 100 Unit/Ml 3 Ml Kwikpen) 0 unit SUBCUT QIDACANDBED [facility]; Protocol Last Admin: 05/01/21 06:49 Dose: Not Given Documented by: Ondansetron HCl (Ondansetron 4 Mg/2 Ml Sdv) 4 mg IV Q6H PRN PRN Reason: Nausea/Vomiting Senna/Docusate Sodium (Docusate Sodium/Sennosides 50-8.6 Mg Tab) 1 tab PO BID PRN PRN Reason: Constipation Tamsulosin HCl (Tamsulosin 0.4 Mg Cap.Er) 0.4 mg PO BEDTIME [facility] Last Admin: 04/30/21 21:32 Dose: 0.4 mg Documented by: Discontinued Medications Sodium Chloride (Normal Saline) 500 mls @ 1,000 mls/hr IV .BOLUS ONE Stop: 04/30/21 05:07 Last Admin: 04/30/21 04:45 Dose: 1,000 mls/hr Documented by: Magnesium Sulfate 2 gm/ Premix 50 mls @ 25 mls/hr IV ONETIME ONE Stop: 04/30/21 07:36 Last Admin: 04/30/21 05:51 Dose: 25 mls/hr Documented by: Remdesivir 200 mg/ Sodium (Chloride) 250 mls @ 250 mls/hr IV ONETIME [facility] Stop: 04/30/21 18:00 Last Admin: 04/30/21 16:13 Dose: 250 mls/hr Documented by: Sodium Chloride (Normal Saline) 100 mls @ 75 mls/hr IV ASDIRECTED [facility] Stop: 04/30/21 18:00 Last Admin: 04/30/21 14:53 Dose: 75 mls/hr Documented by: Sodium Chloride (Normal Saline) Confirm Administered Dose 250 mls @ as directed .ROUTE .STK-MED ONE Stop: 04/30/21 15:57 Last Admin: 04/30/21 16:11 Dose: Not Given Documented by: Iopamidol (Iopamidol 755 Mg/Ml 100 Ml Bottle) 100 ml IVPUSH ONETIME ONE Stop: 04/30/21 14:49 Last Admin: 04/30/21 14:52 Dose: 100 ml Documented by: Sodium Chloride (Sodium Chloride 0.9% 10 Ml Syringe) 10 ml FLUSH ONETIME PRN PRN Reason: IV FLUSH Stop: 04/30/21 18:00 Last Admin: 04/30/21 14:53 Dose: 10 ml Documented by: - Exam Quality Assessment: DVT Prophylaxis. No: Supplemental Oxygen, Urine Catheter General: Alert, Oriented, Cooperative, No Acute Distress HEENT: Pupils Equal, Pupils Reactive, Mucous Membr. Moist/[place] Neck: Supple, Trachea Midline Lungs: Clear to Auscultation, Normal Respiratory Effort. No: Crackles, Rhonchi, Wheezing Cardiovascular: Regular Rate, Regular Rhythm GI/Abdominal Exam: Normal Bowel Sounds, Soft, Non-Tender, No Distention (Male) Exam: Deferred Back Exam: Normal Inspection, Full Range of Motion Extremities: Normal Inspection, Normal Range of Motion, Non-Tender, No Pedal Edema, Normal Capillary Refill Skin: Warm, Dry, Intact Neurological: No New Focal Deficit Psy/Mental Status: Alert, Normal Affect, Normal Mood - Patient Data Lab Results Last 24 hrs: Laboratory Results - last 24 hr 04/30/21 04/30/21 04/30/21 Range/Units 12:42 12:42 12:42 WBC (4.23-9.07) K/mm3 RBC (4.63-6.08) M/mm3 Hgb (13.7-17.5) gm/dl Hct (40.1-51.0) % MCV (79.0-92.2) fl MCH (25.7-32.2) pg MCHC (32.2-35.5) g/dl RDW Std Deviation (35.1-43.9) fL Plt Count (163-337) K/mm3 MPV (9.4-12.3) fl Neut % (Auto) (34.0-67.9) % Lymph % (Auto) (21.8-53.1) % Park % (Auto) (5.3-12.2) % Eos % (Auto) (0.8-7.0) Baso % (Auto) (0.1-1.2) % Neut # (Auto) (1.78-5.38) K/mm3 Lymph # (Auto) (1.32-3.57) K/mm3 [place] # (Auto) (0.30-0.82) K/mm3 Eos # (Auto) (0.04-0.54) K/mm3 Baso # (Auto) (0.01-0.08) K/mm3 D-Dimer, Quantitative 2.73 H (0.19-0.50) mg/L Sodium (136-145) mEq/L Potassium (3.5-5.1) mEq/L Chloride (98-107) mEq/L Carbon Dioxide (21-32) mEq/L Anion Gap (5-15) BUN (7-18) mg/dL Creatinine (0.7-1.3) mg/dL Est Cr Clr Drug Dosing mL/min Estimated GFR (MDRD) (>60) mL/min BUN/Creatinine Ratio (14-18) Glucose (70-99) mg/dL POC Glucose (70-99) mg/dL Hemoglobin A1c 6.9 H ( - 5.6) % Calcium (8.5-10.1) mg/dL Magnesium (1.8-2.4) mg/dL Total Bilirubin (0.2-1.0) mg/dL AST (15-37) U/L ALT (16-63) U/L Alkaline Phosphatase (46-116) U/L C-Reactive Protein (<1.0) mg/dL Total Protein (6.4-8.2) g/dl Albumin (3.4-5.0) g/dl Globulin gm/dL Albumin/Globulin Ratio (1-2) Vitamin D 25-Hydroxy 15.9 L (30.0-100.0) ng/ml 04/30/21 04/30/21 05/01/21 Range/Units 17:08 21:23 05:40 WBC 3.07 L (4.23-9.07) K/mm3 RBC 4.09 L (4.63-6.08) M/mm3 Hgb 14.7 (13.7-17.5) gm/dl Hct 43.7 (40.1-51.0) % MCV 106.8 H (79.0-92.2) fl MCH 35.9 H (25.7-32.2) pg MCHC 33.6 (32.2-35.5) g/dl RDW Std Deviation 53.7 H (35.1-43.9) fL Plt Count 108 L (163-337) K/mm3 MPV 11.4 (9.4-12.3) fl Neut % (Auto) 77.2 H (34.0-67.9) % Lymph % (Auto) 16.3 L (21.8-53.1) % Park % (Auto) 5.2 L (5.3-12.2) % Eos % (Auto) 1.0 (0.8-7.0) Baso % (Auto) 0.0 L (0.1-1.2) % Neut # (Auto) 2.37 (1.78-5.38) K/mm3 Lymph # (Auto) 0.50 L (1.32-3.57) K/mm3 [place] # (Auto) 0.16 L (0.30-0.82) K/mm3 Eos # (Auto) 0.03 L (0.04-0.54) K/mm3 Baso # (Auto) 0.00 L (0.01-0.08) K/mm3 D-Dimer, Quantitative (0.19-0.50) mg/L Sodium (136-145) mEq/L Potassium (3.5-5.1) mEq/L Chloride (98-107) mEq/L Carbon Dioxide (21-32) mEq/L Anion Gap (5-15) BUN (7-18) mg/dL Creatinine (0.7-1.3) mg/dL Est Cr Clr Drug Dosing mL/min Estimated GFR (MDRD) (>60) mL/min BUN/Creatinine Ratio (14-18) Glucose (70-99) mg/dL POC Glucose 110 H 107 H (70-99) mg/dL Hemoglobin A1c ( - 5.6) % Calcium (8.5-10.1) mg/dL Magnesium (1.8-2.4) mg/dL Total Bilirubin (0.2-1.0) mg/dL AST (15-37) U/L ALT (16-63) U/L Alkaline Phosphatase (46-116) U/L C-Reactive Protein (<1.0) mg/dL Total Protein (6.4-8.2) g/dl Albumin (3.4-5.0) g/dl Globulin gm/dL Albumin/Globulin Ratio (1-2) Vitamin D 25-Hydroxy (30.0-100.0) ng/ml 05/01/21 05/01/21 Range/Units 05:40 06:45 WBC (4.23-9.07) K/mm3 RBC (4.63-6.08) M/mm3 Hgb (13.7-17.5) gm/dl Hct (40.1-51.0) % MCV (79.0-92.2) fl MCH (25.7-32.2) pg MCHC (32.2-35.5) g/dl RDW Std Deviation (35.1-43.9) fL Plt Count (163-337) K/mm3 MPV (9.4-12.3) fl Neut % (Auto) (34.0-67.9) % Lymph % (Auto) (21.8-53.1) % Park % (Auto) (5.3-12.2) % Eos % (Auto) (0.8-7.0) Baso % (Auto) (0.1-1.2) % Neut # (Auto) (1.78-5.38) K/mm3 Lymph # (Auto) (1.32-3.57) K/mm3 [place] # (Auto) (0.30-0.82) K/mm3 Eos # (Auto) (0.04-0.54) K/mm3 Baso # (Auto) (0.01-0.08) K/mm3 D-Dimer, Quantitative (0.19-0.50) mg/L Sodium 134 L (136-145) mEq/L Potassium 3.6 (3.5-5.1) mEq/L Chloride 100 (98-107) mEq/L Carbon Dioxide 22 (21-32) mEq/L Anion Gap 15.6 H (5-15) BUN 22 H (7-18) mg/dL Creatinine 1.0 (0.7-1.3) mg/dL Est Cr Clr Drug Dosing 57.52 mL/min Estimated GFR (MDRD) > 60 (>60) mL/min BUN/Creatinine Ratio 22.0 H (14-18) Glucose 160 H (70-99) mg/dL POC Glucose 138 H (70-99) mg/dL Hemoglobin A1c ( - 5.6) % Calcium 7.9 L (8.5-10.1) mg/dL Magnesium 2.1 (1.8-2.4) mg/dL Total Bilirubin 1.3 H (0.2-1.0) mg/dL AST 162 H (15-37) U/L ALT 53 (16-63) U/L Alkaline Phosphatase 64 (46-116) U/L C-Reactive Protein 11.1 H* (<1.0) mg/dL Total Protein 5.7 L (6.4-8.2) g/dl Albumin 2.9 L (3.4-5.0) g/dl Globulin 2.8 gm/dL Albumin/Globulin Ratio 1.0 (1-2) Vitamin D 25-Hydroxy (30.0-100.0) ng/ml Result Diagrams: 05/01/21 05:40 05/01/21 05:40 Sepsis Event Note - Evaluation Sepsis Screening Result: No Definite Risk - Focused Exam Vital Signs: Vital Signs Temp Pulse Resp BP Pulse Ox 05/01/21 03:25 73 18 95/69 96 04/30/21 23:00 72 97/58 L 04/30/21 22:59 47 L 16 97/58 L 94 L 04/30/21 22:35 96/72 04/30/21 21:29 95/62 04/30/21 19:39 69 107/57 L 92 L 04/30/21 19:38 97.0 F 70 21 H 96/71 94 L - Problem List & Annotations (1) Hypomagnesemia SNOMED Code(s): 769956141 Code(s): E83.42 - HYPOMAGNESEMIA Status: Acute Priority: Medium Current Visit: Yes (2) COVID-19 SNOMED Code(s): 105977214 Code(s): U07.1 - COVID-19 Status: Acute Priority: High Current Visit: Yes (3) Generalized weakness SNOMED Code(s): 85916451 Code(s): R53.1 - WEAKNESS Status: Acute Priority: High Current Visit: Yes (4) Hyponatremia SNOMED Code(s): 56446258 Code(s): E87.1 - HYPO-OSMOLALITY AND HYPONATREMIA Status: Acute Priority: Medium Current Visit: Yes (5) Mild dehydration SNOMED Code(s): 1245333530036 Code(s): E86.0 - DEHYDRATION Status: Acute Priority: Medium Current Visit: Yes (6) Type II diabetes mellitus SNOMED Code(s): 61786139 Code(s): E11.9 - TYPE 2 DIABETES MELLITUS WITHOUT COMPLICATIONS Status: Chronic Priority: Low Current Visit: No Qualifiers: Diabetes mellitus [employer] insulin use: without correction use Diabetes mellitus complication status: with other specified complication Qualified Code(s): E11.69 - Type 2 diabetes mellitus with other specified complication (7) Thrombocytopenia SNOMED Code(s): 338373109 Code(s): D69.6 - THROMBOCYTOPENIA, UNSPECIFIED Status: Acute Priority: Medium Current Visit: Yes (8) Polycythemia SNOMED Code(s): 757746319 Code(s): D75.1 - SECONDARY POLYCYTHEMIA Status: Chronic Priority: Low Current Visit: No (9) History of heart bypass surgery SNOMED Code(s): 778104906 Code(s): Z95.1 - PRESENCE OF AORTOCORONARY BYPASS GRAFT Status: Chronic Priority: Low Current Visit: No (10) HLD (hyperlipidemia) SNOMED Code(s): 84446889 Code(s): E78.5 - HYPERLIPIDEMIA, UNSPECIFIED Status: Chronic Priority: Low Current Visit: No Qualifiers: Hyperlipidemia type: unspecified Qualified Code(s): E78.5 - Hyperlipidemia, unspecified (11) HTN (hypertension) SNOMED Code(s): 79008121 Code(s): I10 - ESSENTIAL (PRIMARY) HYPERTENSION Status: Chronic Priority: Medium Current Visit: No Qualifiers: Hypertension type: unspecified Qualified Code(s): I10 - Essential (primary) hypertension (12) CAD (coronary artery disease) SNOMED Code(s): 02630147 Code(s): I25.10 - ATHSCL HEART DISEASE OF [place] CORONARY ARTERY W/O ANG PCTRS Status: Chronic Priority: Low Current Visit: No Qualifiers: Coronary Disease-Associated Artery/Lesion type: bypass graft [place] vs. transplanted heart: [place] heart Associated angina: without angina Qualified Code(s): I25.810 - Atherosclerosis of coronary artery bypass graft(s) without angina pectoris (13) GERD (gastroesophageal reflux disease) SNOMED Code(s): 691738403 Code(s): K21.9 - GASTRO-ESOPHAGEAL REFLUX DISEASE WITHOUT ESOPHAGITIS Status: Chronic Priority: Low Current Visit: No Qualifiers: Esophagitis presence: esophagitis presence not specified Qualified Code(s): K21.9 - Gastro-esophageal reflux disease without esophagitis (14) BPH (benign prostatic hyperplasia) SNOMED Code(s): 533954643 Code(s): N40.0 - BENIGN PROSTATIC HYPERPLASIA WITHOUT LOWER URINRY TRACT SYMP Status: Chronic Priority: Low Current Visit: No Qualifiers: Lower urinary tract symptom presence: symptoms absent Qualified Code(s): N40.0 - Benign prostatic hyperplasia without lower urinary tract symptoms (15) Elevated d-dimer SNOMED Code(s): 475734624 Code(s): R79.89 - OTHER SPECIFIED ABNORMAL FINDINGS OF BLOOD CHEMISTRY Status: Acute Priority: High Current Visit: Yes (16) Vitamin D deficiency SNOMED Code(s): 35014241 Code(s): E55.9 - VITAMIN D DEFICIENCY, UNSPECIFIED Status: Acute Priority: Medium Current Visit: Yes (17) Elevated C-reactive protein (CRP) SNOMED Code(s): 917504453253648 Code(s): R79.82 - ELEVATED C-REACTIVE PROTEIN (CRP) Status: Acute Priori ty: High Current Visit: Yes - Problem List Review Problem List Initiated/Reviewed/Updated: Yes - My Orders Last 24 Hours: My Active Orders 04/30/21 Lunch Consistent Carbohydrate Diet [DIET] 04/30/21 11:51 Admission Status [Patient Status] [ADT] Routine Cardiac Monitoring [RC] . DIRECTED 04/30/21 12:18 Isolation [COMM] Stat 04/30/21 12:34 Height and Weight [RC] 06 Intake and Output [RC] 04,16 Oxygen Therapy [RC] ASDIRECTED Pulse Oximetry [RC] CONTINUOUS RT Incentive Spirometry [RC] ASDIRECTED Up With Assistance [RC] BID Up to Chair [RC] BID Vital Signs [RC] Q4HR Consult to Case Management/Pricing Specialist [CONS] Routine Consult to Spiritual Care [CONS] Routine Acetaminophen [TylenoL] 650 mg PO Q4H PRN Albuterol [Proventil HFA] See Dose Instructions INH Q2H PRN Albuterol [Proventil Neb Soln] 2.5 mg NEB Q2H PRN Albuterol/Ipratropium [DuoNeb 3.0-0.5 MG/3 ML] 3 ml NEB QIDRT PRN Docusate Sodium/Sennosides [Senna Plus] 1 tab PO BID PRN Ondansetron [Zofran] 4 mg IV Q6H PRN 04/30/21 12:35 RT Aerosol Therapy [RC] ASDIRECTED 04/30/21 12:36 OT Evaluation and Treatment [CONS] Routine PT Evaluation and Treatment [CONS] Routine Respiratory Care Assess and Treatment [CONS] Routine 04/30/21 12:37 Precautions [COMM] Routine 04/30/21 12:42 Blood Glucose Check, Bedside [RC] QIDACANDBED 04/30/21 12:43 Consult to Pediatric Anesthesiologist [CONS] Routine 04/30/21 14:00 Enoxaparin [Lovenox] 40 mg SUBCUT DAILY 04/30/21 14:05 Code Status [Resuscitation Status] Routine 04/30/21 14:15 Cholecalciferol (Vitamin D3) [Vitamin D3] 5,000 unit PO DAILY 04/30/21 17:00 Insulin Lispro [HumaLOG] See Protocol SUBCUT QIDACANDBED 04/30/21 21:00 Tamsulosin [Flomax] 0.4 mg PO BEDTIME carvediloL [Coreg] 3.125 mg PO BID 05/01/21 09:00 Aspirin 81 mg PO DAILY 05/01/21 14:00 Remdesivir 100 mg Sodium Chloride 0.9% [Normal Saline] 100 ml IV Q24H 05/02/21 05:11 C-REACTIVE PROTEIN [CHEM] AM CBC WITH AUTO DIFF [HEME] AM COMPREHENSIVE METABOLIC PN,CMP [CHEM] AM D-DIMER QUANTITATIVE [COAG] Q48H MAGNESIUM [CHEM] AM 05/03/21 05:11 C-REACTIVE PROTEIN [CHEM] AM CBC WITH AUTO DIFF [HEME] AM COMPREHENSIVE METABOLIC PN,CMP [CHEM] AM MAGNESIUM [CHEM] AM 05/04/21 05:11 C-REACTIVE PROTEIN [CHEM] AM CBC WITH AUTO DIFF [HEME] AM COMPREHENSIVE METABOLIC PN,CMP [CHEM] AM D-DIMER QUANTITATIVE [COAG] Q48H MAGNESIUM [CHEM] AM 05/06/21 05:11 D-DIMER QUANTITATIVE [COAG] Q48H - Assessment Assessment:: 05/01/2021 86-year-old Covid positive male who presented to our ED twice within 24 hours due to Covid symptoms. On his most recent visit he reportedly had a type of syncopal episode where he slid off the toilet and was unable to get up. He has been working with PT and OT. He remains weak but is improving. Labs today show a WBC of 3.07. Hemoglobin 14.7. Platelet 108,000. Neutrophils are elevated 77.2. Sodium is 134. Potassium 3.6. Chloride 100. Carbon dioxide 22. Anion gap is 15.6. BUN is 22. Creatinine 1.0. GFR greater than 60. Glucose has been between 160 and 110. Calcium is 7.9. Magnesium 2.1. Total bilirubin 1.3. AST is 162, ALT 53, alkaline phosphatase 64. CRP is 11.1. Protein is 5.7. Albumin is 2.9. Vitamin D was obtained yesterday was 15.9 and is being supplemented. D-dimer was 2.73. CTA was obtained showing no signs of pulmonary embolism however there are increased densities within both sides of the chest suggesting COVID-19 pneumonia. Venous Doppler was also obtained on the lower extremities and was negative for DVT. He is not requiring oxygen. We are giving him remdesivir and he is on day 2 of this. We will continue isolation an d remdesivir. We will monitor for signs of hypoxia or worsening Covid symptoms. Plan will be for placement unless patient is able to be rehabilitated while here. Length of stay likely 4 to 5 days. - Plan Plan:: COVID-19 Generalized weakness Elevated D-Dimer Elevated CRP * O2 as needed to keep saturations between 87 and 95%. * Remdesivir for 5 days * We will hold off dexamethasone for now * Continuous pulse oximetry * Telemetry * PT/OT * CM/SW for possible placement * CTA with PE protocol shows bilateral increased densities concerning for Covid but no PE * Venous Doppler ultrasound negative for lower extremity DVTs * Daily labs * Airborne/contact precautions * IS/Acapella * Respiratory therapy consultation * As needed albuterol nebulizer * As needed DuoNeb * As needed albuterol MDI * Pediatric Anesthesiologist consultation Hyponatremia, Improving Mild dehydration, Improving * Given IV fluids in the ED * Caution with fluids due to Covid pneumonia diagnosis and underlying heart failure * Encourage PO Hydration Hypomagnesemia, Resolved * Supplemented in ED * Recheck a.m. labs Vitamin D Deficiency * Supplementation * PCP follow-up Type II diabetes mellitus * Check A1c - 6.9% * Hold home Metformin * Blood glucose checks 4 times daily before meals and bedtime * Medium sliding scale insulin * Consistent carbohydrate diet Thrombocytopenia * Likely secondary to COVID-19 as above * Monitor and discontinue Lovenox if indicated Polycythemia * No acute concerns * Hold hydroxyurea for now History of heart bypass surgery HLD (hyperlipidemia) HTN (hypertension) CAD (coronary artery disease) * Telemetry * No acute concerns * Home medications as ordered GERD (gastroesophageal reflux disease) * No acute concerns BPH (benign prostatic hyperplasia) * No acute concerns * Continue home Flomax Code Status: DNR/DNI PCP: Dr. Street Hematology/Oncology: Nettie Salgado NP DVT prophylaxis: Lovenox Social: Patient resides with in a home they own. She also has COVID-19 pneumonia Disposition: Patient admitted to the medical floor on telemetry for treatment of his underlying COVID-19 pneumonia and generalized weakness. Patient will need PT/OT and possible placement. Length of stay likely 4 to 5 days.
[2021-05-01] MEDS: Carvedilol 3.125 MG Tab PO SCH ×2 (08:52→21:13)
[2021-05-01] MEDS: Aspirin 81 MG Tab.Chew PO SCH (08:52)
[2021-05-01] MEDS: Cholecalciferol (Vitamin D3) 5,000 UNIT Cap PO SCH (08:52)
[2021-05-01] MEDS: Enoxaparin 40 MG/0.4 ML Syringe SUBCUT SCH (08:52)
[2021-05-01] MEDS ORDERED: REMDESIVIR 100 MG in Sodium Chloride 0.9% 100 ML IV SCH (14:00)
[2021-05-01] MEDS: REMDESIVIR 100 MG in Sodium Chloride 0.9% 250 ML IV SCH (14:38)
[2021-05-01] MEDS: Tamsulosin 0.4 MG Cap.ER PO SCH (21:13)
[2021-05-02] MEDS: Insulin Lispro 100 Unit/ML 3 ML KwikPen SUBCUT SCH ×4 (06:59→21:57)
--- NOTE | 2021-05-02 07:00 | PCM.PN ---
<Mono Wakefield - Last Filed: 05/02/21 11:33> - General Info Date of Service: 05/02/21 Admission Dx/Problem (Free Text): Admission Diagnosis/Problem Admission Diagnosis/Problem Weakness Functional Status: Reports: Pain Controlled, Tolerating Diet, Ambulating, Urinating, Incentive Spirometry, Other (Acapella ). Denies: New Symptoms - Review of Systems General: Reports: Weakness (improving ). Denies: Fever, Fatigue, Malaise, Chills HEENT: Reports: No Symptoms. Denies: Headaches, Sore Throat Pulmonary: Reports: No Symptoms. Denies: Shortness of Breath, Pleuritic Chest Pain, Cough, Sputum, Wheezing Cardiovascular: Reports: No Symptoms. Denies: Chest Pain, Dyspnea on Exertion, Edema Gastrointestinal: Reports: No Symptoms. Denies: Abdominal Pain, Constipation, Diarrhea, Nausea, Vomiting Genitourinary: Reports: No Symptoms. Denies: Pain Musculoskeletal: Reports: Other (Generalized myalgias) Skin: Reports: No Symptoms. Denies: Cyanosis Neurological: Reports: Weakness. Denies: Confusion, Dizziness, Headache, Numbness, Seizure, Syncope, Tingling, Difficulty Walking, Gait Disturbance Psychiatric: Reports: No Symptoms - Patient Data Vitals - Most Recent: Last Vital Signs Temp 96.6 F L 05/02/21 04:33 Pulse 73 05/02/21 04:33 Resp 16 05/02/21 04:33 BP 112/69 05/02/21 04:33 Pulse Ox 97 05/02/21 04:33 Weight - Most Recent: 188 lb 4.8 oz I&O - Last 24 Hours: Intake & Output 05/01/21 05/02/21 05/02/21 22:59 06:59 14:59 Intake Total 500 300 Output Total 450 450 Balance 50 -150 Lab Results Last 24 Hours: Laboratory Results - last 24 hr 05/01/21 05/01/21 05/01/21 Range/Units 11:19 15:17 21:07 WBC (4.23-9.07) K/mm3 RBC (4.63-6.08) M/mm3 Hgb (13.7-17.5) gm/dl Hct (40.1-51.0) % MCV (79.0-92.2) fl MCH (25.7-32.2) pg MCHC (32.2-35.5) g/dl RDW Std Deviation (35.1-43.9) fL Plt Count (163-337) K/mm3 MPV (9.4-12.3) fl Neut % (Auto) (34.0-67.9) % Lymph % (Auto) (21.8-53.1) % Posey % (Auto) (5.3-12.2) % Eos % (Auto) (0.8-7.0) Baso % (Auto) (0.1-1.2) % Neut # (Auto) (1.78-5.38) K/mm3 Lymph # (Auto) (1.32-3.57) K/mm3 [place] # (Auto) (0.30-0.82) K/mm3 Eos # (Auto) (0.04-0.54) K/mm3 Baso # (Auto) (0.01-0.08) K/mm3 D-Dimer, Quantitative (0.19-0.50) mg/L POC Glucose 132 H 122 H 153 H (70-99) mg/dL 05/02/21 05/02/21 05/02/21 Range/Units 04:56 04:56 06:49 WBC 3.00 L (4.23-9.07) K/mm3 RBC 4.10 L (4.63-6.08) M/mm3 Hgb 14.6 (13.7-17.5) gm/dl Hct 43.5 (40.1-51.0) % MCV 106.1 H (79.0-92.2) fl MCH 35.6 H (25.7-32.2) pg MCHC 33.6 (32.2-35.5) g/dl RDW Std Deviation 52.4 H (35.1-43.9) fL Plt Count 124 L (163-337) K/mm3 MPV 11.2 (9.4-12.3) fl Neut % (Auto) 69.8 H (34.0-67.9) % Lymph % (Auto) 21.3 L (21.8-53.1) % Posey % (Auto) 7.3 (5.3-12.2) % Eos % (Auto) 1.3 (0.8-7.0) Baso % (Auto) 0.3 (0.1-1.2) % Neut # (Auto) 2.09 (1.78-5.38) K/mm3 Lymph # (Auto) 0.64 L (1.32-3.57) K/mm3 P[place]y # (Auto) 0.22 L (0.30-0.82) K/mm3 Eos # (Auto) 0.04 (0.04-0.54) K/mm3 Baso # (Auto) 0.01 (0.01-0.08) K/mm3 D-Dimer, Quantitative 1.88 H (0.19-0.50) mg/L POC Glucose 129 H (70-99) mg/dL Med Orders - Current: Current Medications Acetaminophen (Acetaminophen 325 Mg Tab) 650 mg PO Q4H PRN PRN Reason: Pain (Mild 1-3)/fever Last Admin: 04/30/21 16:11 Dose: 650 mg Documented by: Albuterol (Albuterol 0.083% 2.5 Mg/3 Ml Neb Soln) 2.5 mg NEB Q2H PRN PRN Reason: Shortness Of Breath/wheezing Albuterol (Albuterol 6.7 Gm Inhaler) 0 gm INH Q2H PRN PRN Reason: SOB/Wheezing Albuterol/Ipratropium (Albuterol/Ipratropium 3.0-0.5 Mg/3 Ml Neb Soln) 3 ml NEB QIDRT PRN PRN Reason: Shortness Of Breath/wheezing Aspirin (Aspirin 81 Mg Tab.Chew) 81 mg PO DAILY [facility] Last Admin: 05/01/21 08:52 Dose: 81 mg Documented by: Carvedilol (Carvedilol 3.125 Mg Tab) 3.125 mg PO BID [facility] Last Admin: 05/01/21 21:13 Dose: 3.125 mg Documented by: Cholecalciferol (Cholecalciferol (Vitamin D3) 5,000 Unit Cap) 5,000 unit PO DAILY [facility] Last Admin: 05/01/21 08:52 Dose: 5,000 unit Documented by: Enoxaparin Sodium (Enoxaparin 40 Mg/0.4 Ml Syringe) 40 mg SUBCUT DAILY [facility] Last Admin: 05/01/21 08:52 Dose: 40 mg Documented by: Remdesivir 100 mg/ Sodium (Chloride) 250 mls @ 250 mls/hr IV Q24H [facility] Stop: 05/04/21 14:59 Last Admin: 05/01/21 14:38 Dose: 250 mls/hr Documented by: Insulin Human Lispro (Insulin Lispro 100 Unit/Ml 3 Ml Kwikpen) 0 unit SUBCUT QIDACANDBED [facility]; Protocol Last Admin: 05/02/21 06:59 Dose: Not Given Documented by: Ondansetron HCl (Ondansetron 4 Mg/2 Ml Sdv) 4 mg IV Q6H PRN PRN Reason: Nausea/Vomiting Senna/Docusate Sodium (Docusate Sodium/Sennosides 50-8.6 Mg Tab) 1 tab PO BID PRN PRN Reason: Constipation Tamsulosin HCl (Tamsulosin 0.4 Mg Cap.Er) 0.4 mg PO BEDTIME [facility] Last Admin: 05/01/21 21:13 Dose: 0.4 mg Documented by: Discontinued Medications Sodium Chloride (Normal Saline) 500 mls @ 1,000 mls/hr IV .BOLUS ONE Stop: 04/30/21 05:07 Last Admin: 04/30/21 04:45 Dose: 1,000 mls/hr Documented by: Magnesium Sulfate 2 gm/ Premix 50 mls @ 25 mls/hr IV ONETIME ONE Stop: 04/30/21 07:36 Last Admin: 04/30/21 05:51 Dose: 25 mls/hr Documented by: Remdesivir 200 mg/ Sodium (Chloride) 250 mls @ 250 mls/hr IV ONETIME [facility] Stop: 04/30/21 18:00 Last Admin: 04/30/21 16:13 Dose: 250 mls/hr Documented by: Sodium Chloride (Normal Saline) 100 mls @ 75 mls/hr IV ASDIRECTED [facility] Stop: 04/30/21 18:00 Last Admin: 04/30/21 14:53 Dose: 75 mls/hr Documented by: Sodium Chloride (Normal Saline) Confirm Administered Dose 250 mls @ as directed .ROUTE .STK-MED ONE Stop: 04/30/21 15:57 Last Admin: 04/30/21 16:11 Dose: Not Given Documented by: Iopamidol (Iopamidol 755 Mg/Ml 100 Ml Bottle) 100 ml IVPUSH ONETIME ONE Stop: 04/30/21 14:49 Last Admin: 04/30/21 14:52 Dose: 100 ml Documented by: Sodium Chloride (Sodium Chloride 0.9% 10 Ml Syringe) 10 ml FLUSH ONETIME PRN PRN Reason: IV FLUSH Stop: 04/30/21 18:00 Last Admin: 04/30/21 14:53 Dose: 10 ml Documented by: - Exam Quality Assessment: DVT Prophylaxis. No: Supplemental Oxygen, Urine Catheter General: Alert, Oriented, Cooperative, No Acute Distress HEENT: Pupils Equal, Pupils Reactive, Mucous Membr. Moist/[place] Neck: Supple, Trachea Midline Lungs: Clear to Auscultation, Normal Respiratory Effort Cardiovascular: Regular Rate, Regular Rhythm, Other (Was having runs of V. tach overnight but they were 3 beats nonsustained and self resolving) GI/Abdominal Exam: Normal Bowel Sounds, Soft, Non-Tender, No Distention (Male) Exam: Deferred Back Exam: Normal Inspection, Full Range of Motion Extremities: Normal Inspection, Normal Range of Motion, Non-Tender, No Pedal Edema, Normal Capillary Refill Skin: Warm, Dry, Intact Neurological: No New Focal Deficit Psy/Mental Status: Alert, Normal Affect, Normal Mood - Patient Data Lab Results Last 24 hrs: Laboratory Results - last 24 hr 05/01/21 05/01/21 05/01/21 Range/Units 11:19 15:17 21:07 WBC (4.23-9.07) K/mm3 RBC (4.63-6.08) M/mm3 Hgb (13.7-17.5) gm/dl Hct (40.1-51.0) % MCV (79.0-92.2) fl MCH (25.7-32.2) pg MCHC (32.2-35.5) g/dl RDW Std Deviation (35.1-43.9) fL Plt Count (163-337) K/mm3 MPV (9.4-12.3) fl Neut % (Auto) (34.0-67.9) % Lymph % (Auto) (21.8-53.1) % Posey % (Auto) (5.3-12.2) % Eos % (Auto) (0.8-7.0) Baso % (Auto) (0.1-1.2) % Neut # (Auto) (1.78-5.38) K/mm3 Lymph # (Auto) (1.32-3.57) K/mm3 [place]y # (Auto) (0.30-0.82) K/mm3 Eos # (Auto) (0.04-0.54) K/mm3 Baso # (Auto) (0.01-0.08) K/mm3 D-Dimer, Quantitative (0.19-0.50) mg/L POC Glucose 132 H 122 H 153 H (70-99) mg/dL 05/02/21 05/02/21 05/02/21 Range/Units 04:56 04:56 06:49 WBC 3.00 L (4.23-9.07) K/mm3 RBC 4.10 L (4.63-6.08) M/mm3 Hgb 14.6 (13.7-17.5) gm/dl Hct 43.5 (40.1-51.0) % MCV 106.1 H (79.0-92.2) fl MCH 35.6 H (25.7-32.2) pg MCHC 33.6 (32.2-35.5) g/dl RDW Std Deviation 52.4 H (35.1-43.9) fL Plt Count 124 L (163-337) K/mm3 MPV 11.2 (9.4-12.3) fl Neut % (Auto) 69.8 H (34.0-67.9) % Lymph % (Auto) 21.3 L (21.8-53.1) % Posey % (Auto) 7.3 (5.3-12.2) % Eos % (Auto) 1.3 (0.8-7.0) Baso % (Auto) 0.3 (0.1-1.2) % Neut # (Auto) 2.09 (1.78-5.38) K/mm3 Lymph # (Auto) 0.64 L (1.32-3.57) K/mm3 P[place]y # (Auto) 0.22 L (0.30-0.82) K/mm3 Eos # (Auto) 0.04 (0.04-0.54) K/mm3 Baso # (Auto) 0.01 (0.01-0.08) K/mm3 D-Dimer, Quantitative 1.88 H (0.19-0.50) mg/L POC Glucose 129 H (70-99) mg/dL Result Diagrams: 05/02/21 04:56 05/02/21 04:56 Sepsis Event Note - Evaluation Sepsis Screening Result: No Definite Risk - Focused Exam Vital Signs: Vital Signs Temp Pulse Resp BP Pulse Ox 05/02/21 04:33 96.6 F L 73 16 112/69 97 05/01/21 23:55 96 05/01/21 23:54 96.8 F L 56 L 20 116/64 82 L 05/01/21 21:13 71 100/78 05/01/21 19:28 97.0 F 69 18 100/78 92 L - Problem List & Annotations (1) Hypomagnesemia SNOMED Code(s): 279505736 Code(s): E83.42 - HYPOMAGNESEMIA Status: Acute Priority: Medium Current Visit: Yes (2) COVID-19 SNOMED Code(s): 924001953 Code(s): U07.1 - COVID-19 Status: Acute Priority: High Current Visit: Yes (3) Generalized weakness SNOMED Code(s): 48719950 Code(s): R53.1 - WEAKNESS Status: Acute Priority: High Current Visit: Yes (4) Hyponatremia SNOMED Code(s): 52434144 Code(s): E87.1 - HYPO-OSMOLALITY AND HYPONATREMIA Status: Resolved Priority: Medium Current Visit: Yes (5) Mild dehydration SNOMED Code(s): 3670237846586 Code(s): E86.0 - DEHYDRATION Status: Resolved Priority: Medium Current Visit: Yes (6) Type II diabetes mellitus SNOMED Code(s): 72369193 Code(s): E11.9 - TYPE 2 DIABETES MELLITUS WITHOUT COMPLICATIONS Status: Chronic Priority: Low Current Visit: No Qualifiers: Diabetes mellitus retirement insulin use: without retirement use Diabetes mellitus complication status: with other specified complication Qualified Code(s): E11.69 - Type 2 diabetes mellitus with other specified complication (7) Thrombocytopenia SNOMED Code(s): 333176806 Code(s): D69.6 - THROMBOCYTOPENIA, UNSPECIFIED Status: Acute Priority: Medium Current Visit: Yes (8) Polycythemia SNOMED Code(s): 721104052 Code(s): D75.1 - SECONDARY POLYCYTHEMIA Status: Chronic Priority: Low Current Visit: No (9) History of heart bypass surgery SNOMED Code(s): 252275802 Code(s): Z95.1 - PRESENCE OF AORTOCORONARY BYPASS GRAFT Status: Chronic Priority: Low Current Visit: No (10) HLD (hyperlipidemia) SNOMED Code(s): 66597167 Code(s): E78.5 - HYPERLIPIDEMIA, UNSPECIFIED Status: Chronic Priority: Low Current Visit: No Qualifiers: Hyperlipidemia type: unspecified Qualified Code(s): E78.5 - Hyperlipidemia, unspecified (11) HTN (hypertension) SNOMED Code(s): 07277310 Code(s): I10 - ESSENTIAL (PRIMARY) HYPERTENSION Status: Chronic Priority: Medium Current Visit: No Qualifiers: Hypertension type: unspecified Qualified Code(s): I10 - Essential (primary) hypertension (12) CAD (coronary artery disease) SNOMED Code(s): 15759666 Code(s): I25.10 - ATHSCL HEART DISEASE OF [place] CORONARY ARTERY W/O ANG PCTRS Status: Chronic Priority: Low Current Visit: No Qualifiers: Coronary Disease-Associated Artery/Lesion type: bypass graft [place] vs. transplanted heart: [place] heart Associated angina: without angina Qualified Code(s): I25.810 - Atherosclerosis of coronary artery bypass graft(s) without angina pectoris (13) GERD (gastroesophageal reflux disease) SNOMED Code(s): 195001497 Code(s): K21.9 - GASTRO-ESOPHAGEAL REFLUX DISEASE WITHOUT ESOPHAGITIS Status: Chronic Priority: Low Current Visit: No Qualifiers: Esophagitis presence: esophagitis presence not specified Qualified Code(s): K21.9 - Gastro-esophageal reflux disease without esophagitis (14) BPH (benign prostatic hyperplasia) SNOMED Code(s): 949887873 Code(s): N40.0 - BENIGN PROSTATIC HYPERPLASIA WITHOUT LOWER URINRY TRACT SYMP Status: Chronic Priority: Low Current Visit: No Qualifiers: Lower urinary tract symptom presence: symptoms absent Qualified Code(s): N40.0 - Benign prostatic hyperplasia without lower urinary tract symptoms (15) Elevated d-dimer SNOMED Code(s): 548328984 Code(s): R79.89 - OTHER SPECIFIED ABNORMAL FINDINGS OF BLOOD CHEMISTRY Status: Acute Priority: High Current Visit: Yes (16) Vitamin D deficiency SNOMED Code(s): 85152825 Code(s): E55.9 - VITAMIN D DEFICIENCY, UNSPECIFIED Status: Acute Priority: Medium Current Visit: Yes (17) Elevated C-reactive protein (CRP) SNOMED Code(s): 196065694039357 Code(s): R79.82 - ELEVATED C-REACTIVE PROTEIN (CRP) Status: Acute Priority: High Current Visit: Yes - Problem List Review Problem List Initiated/Reviewed/Updated: Yes - My Orders Last 24 Hours: My Active Orders 05/01/21 09:00 Aspirin 81 mg PO DAILY 05/01/21 14:00 Remdesivir 100 mg Sodium Chloride 0.9% [Normal Saline] 250 ml IV Q24H 05/02/21 04:56 C-REACTIVE PROTEIN [CHEM] AM COMPREHENSIVE METABOLIC PN,CMP [CHEM] AM MAGNESIUM [CHEM] AM 05/03/21 05:11 C-REACTIVE PROTEIN [CHEM] AM CBC WITH AUTO DIFF [HEME] AM COMPREHENSIVE METABOLIC PN,CMP [CHEM] AM MAGNESIUM [CHEM] AM 05/04/21 05:11 C-REACTIVE PROTEIN [CHEM] AM CBC WITH AUTO DIFF [HEME] AM COMPREHENSIVE METABOLIC PN,CMP [CHEM] AM D-DIMER QUANTITATIVE [COAG] Q48H MAGNESIUM [CHEM] AM 05/06/21 05:11 D-DIMER QUANTITATIVE [COAG] Q48H - Assessment Assessment:: 05/01/2021 86-year-old Covid positive male who presented to our ED twice within 24 hours due to Covid symptoms. On his most recent visit he reportedly had a type of syncopal episode where he slid off the toilet and was unable to get up. He has been working with PT and OT. He remains weak but is improving. Labs today show a WBC of 3.07. Hemoglobin 14.7. Platelet 108,000. Neutrophils are elevated 77.2. Sodium is 134. Potassium 3.6. Chloride 100. Carbon dioxide 22. Anion gap is 15.6. BUN is 22. Creatinine 1.0. GFR greater than 60. Glucose has been between 160 and 110. Calcium is 7.9. Magnesium 2.1. Total bilirubin 1.3. AST is 162, ALT 53, alkaline phosphatase 64. CRP is 11.1. Protein is 5.7. Albumin is 2.9. Vitamin D was obtained yesterday was 15.9 and is being supplemented. D-dimer was 2.73. CTA was obtained showing no signs of pulmonary embolism however there are increased densities within both sides of the chest suggesting COVID-19 pneumonia. Venous Doppler was also obtained on the lower extremities and was negative for DVT. He is not requiring oxygen. We are giving him remdesivir and he is on day 2 of this. We will continue isolation and remdesivir. We will monitor for signs of hypoxia or worsening Covid symptoms. Plan will be for placement unless patient is able to be rehabilitated while here. Length of stay likely 4 to 5 days. 05/02/2021 86-year-old male admitted to the floor due to weakness secondary to COVID-19. He has had no respiratory symptoms and remains on room air. Labs today show WBC of 3.00. Hemoglobin is 14.6. Platelet 124,000. Neutrophils are elevated at 69.8. D-dimer is down to 1.88. Sodium 137. Potassium 3.6. Chloride 102. Carbon dioxide 21. Anion gap is 17.6. BUN is 25. Creatinine 0.9. GFR greater than 60. Glucose has been between 111 and 201. Calcium is 7.9. Magnesium 2.0. Total bilirubin is down to 1.2. AST is 121. ALT 49. Dong phosphatase i s 60. CRP is 5.3. Albumin is 2.9. Protein 5.4. He remains on remdesivir but is not been receiving a steroid. He is utilizing his incentive spirometer and Acapella. Physical therapy is working with him and he is home versus SNF at this time. We will continue current treatment plan and disposition will pend advancement with therapies. Length of stay likely 1-3 more days. - Plan Plan:: COVID-19 Generalized weakness Elevated D-Dimer Elevated CRP * O2 as needed to keep saturations between 87 and 95%. * Remdesivir for 5 days * We will hold off dexamethasone for now * Continuous pulse oximetry * Telemetry * PT/OT * CM/SW for possible placement * CTA with PE protocol shows bilateral increased densities concerning for Covid but no PE * Venous Doppler ultrasound negative for lower extremity DVTs * Daily labs * Airborne/contact precautions * IS/Acapella * Respiratory therapy consultation * As needed albuterol nebulizer * As needed DuoNeb * As needed albuterol MDI * [employer] consultation Hyponatremia, resolved Mild dehydration, Resolved * Given IV fluids in the ED * Caution with fluids due to Covid pneumonia diagnosis and underlying heart failure * Encourage PO Hydration Hypomagnesemia, Resolved * Supplemented in ED * Monitor labs Vitamin D Deficiency * Supplementation * PCP follow-up Type II diabetes mellitus * Check A1c - 6.9% * Hold home Metformin * Blood glucose checks 4 times daily before meals and bedtime * Medium sliding scale insulin * Consistent carbohydrate diet Thrombocytopenia, improving * Likely exacerbated by COVID-19 as above * Monitor and discontinue Lovenox if indicated Polycythemia * No acute concerns * Hold hydroxyurea for now History of heart bypass surgery HLD (hyperlipidemia) HTN (hypertension) CAD (coronary artery disease) * Telemetry * No acute concerns * Home medications as ordered GERD (gastroesophageal reflux disease) * No acute concerns BPH (benign prostatic hyperplasia) * No acute concerns * Continue home Flomax Code Status: DNR/DNI PCP: Dr. Street Hematology/Oncology: Nettie Salgado NP DVT prophylaxis: Lovenox Social: Patient resides with in a home they own. She also has COVID-19 pneumonia Disposition: Patient admitted to the medical floor on telemetry for treatment of his underlying COVID-19 pneumonia and generalized weakness. Patient will need PT/OT and possible placement. Length of stay likely 4 to 5 days. <Ernie Lange Jr - Last Filed: 05/02/21 20:03> - Patient Data Vitals - Most Recent: Last Vital Signs Temp 96.1 F L 05/02/21 14:28 Pulse 58 L 05/02/21 14:28 Resp 18 05/02/21 14:28 BP 105/66 05/02/21 14:28 Pulse Ox 92 L 05/02/21 14:28 I&O - Last 24 Hours: Intake & Output 05/02/21 05/02/21 05/02/21 06:59 14:59 22:59 Intake Total 300 175 570 Output Total 450 650 Balance -150 175 -80 Lab Results Last 24 Hours: Laboratory Results - last 24 hr 05/01/21 05/02/21 05/02/21 Range/Units 21:07 04:56 04:56 WBC 3.00 L (4.23-9.07) K/mm3 RBC 4.10 L (4.63-6.08) M/mm3 Hgb 14.6 (13.7-17.5) gm/dl Hct 43.5 (40.1-51.0) % MCV 106.1 H (79.0-92.2) fl MCH 35.6 H (25.7-32.2) pg MCHC 33.6 (32.2-35.5) g/dl RDW Std Deviation 52.4 H (35.1-43.9) fL Plt Count 124 L (163-337) K/mm3 MPV 11.2 (9.4-12.3) fl Neut % (Auto) 69.8 H (34.0-67.9) % Lymph % (Auto) 21.3 L (21.8-53.1) % [place] % (Auto) 7.3 (5.3-12.2) % Eos % (Auto) 1.3 (0.8-7.0) Baso % (Auto) 0.3 (0.1-1.2) % Neut # (Auto) 2.09 (1.78-5.38) K/mm3 Lymph # (Auto) 0.64 L (1.32-3.57) K/mm3 [place] # (Auto) 0.22 L (0.30-0.82) K/mm3 Eos # (Auto) 0.04 (0.04-0.54) K/mm3 Baso # (Auto) 0.01 (0.01-0.08) K/mm3 D-Dimer, Quantitative 1.88 H (0.19-0.50) mg/L Sodium (136-145) mEq/L Potassium (3.5-5.1) mEq/L Chloride (98-107) mEq/L Carbon Dioxide (21-32) mEq/L Anion Gap (5-15) BUN (7-18) mg/dL Creatinine (0.7-1.3) mg/dL Est Cr Clr Drug Dosing mL/min Estimated GFR (MDRD) (>60) mL/min BUN/Creatinine Ratio (14-18) Glucose (70-99) mg/dL POC Glucose 153 H (70-99) mg/dL Calcium (8.5-10.1) mg/dL Magnesium (1.8-2.4) mg/dL Total Bilirubin (0.2-1.0) mg/dL AST (15-37) U/L ALT (16-63) U/L Alkaline Phosphatase (46-116) U/L C-Reactive Protein (<1.0) mg/dL Total Protein (6.4-8.2) g/dl Albumin (3.4-5.0) g/dl Globulin gm/dL Albumin/Globulin Ratio (1-2) 05/02/21 05/02/21 05/02/21 Range/Units 04:56 06:49 11:07 WBC (4.23-9.07) K/mm3 RBC (4.63-6.08) M/mm3 Hgb (13.7-17.5) gm/dl Hct (40.1-51.0) % MCV (79.0-92.2) fl MCH (25.7-32.2) pg MCHC (32.2-35.5) g/dl RDW Std Deviation (35.1-43.9) fL Plt Count (163-337) K/mm3 MPV (9.4-12.3) fl Neut % (Auto) (34.0-67.9) % Lymph % (Auto) (21.8-53.1) % [place] % (Auto) (5.3-12.2) % Eos % (Auto) (0.8-7.0) Baso % (Auto) (0.1-1.2) % Neut # (Auto) (1.78-5.38) K/mm3 Lymph # (Auto) (1.32-3.57) K/mm3 [place] # (Auto) (0.30-0.82) K/mm3 Eos # (Auto) (0.04-0.54) K/mm3 Baso # (Auto) (0.01-0.08) K/mm3 D-Dimer, Quantitative (0.19-0.50) mg/L Sodium 137 (136-145) mEq/L Potassium 3.6 (3.5-5.1) mEq/L Chloride 102 (98-107) mEq/L Carbon Dioxide 21 (21-32) mEq/L Anion Gap 17.6 H (5-15) BUN 25 H (7-18) mg/dL Creatinine 0.9 (0.7-1.3) mg/dL Est Cr Clr Drug Dosing 63.91 mL/min Estimated GFR (MDRD) > 60 (>60) mL/min BUN/Creatinine Ratio 27.8 H (14-18) Glucose 111 H (70-99) mg/dL POC Glucose 129 H 201 H (70-99) mg/dL Calcium 7.9 L (8.5-10.1) mg/dL Magnesium 2.0 (1.8-2.4) mg/dL Total Bilirubin 1.2 H (0.2-1.0) mg/dL AST 121 H (15-37) U/L ALT 49 (16-63) U/L Alkaline Phosphatase 60 (46-116) U/L C-Reactive Protein 5.3 H* (<1.0) mg/dL Total Protein 5.4 L (6.4-8.2) g/dl Albumin 2.9 L (3.4-5.0) g/dl Globulin 2.5 gm/dL Albumin/Globulin Ratio 1.2 (1-2) 05/02/21 Range/Units 15:57 WBC (4.23-9.07) K/mm3 RBC (4.63-6.08) M/mm3 Hgb (13.7-17.5) gm/dl Hct (40.1-51.0) % MCV (79.0-92.2) fl MCH (25.7-32.2) pg MCHC (32.2-35.5) g/dl RDW Std Deviation (35.1-43.9) fL Plt Count (163-337) K/mm3 MPV (9.4-12.3) fl Neut % (Auto) (34.0-67.9) % Lymph % (Auto) (21.8-53.1) % [place] % (Auto) (5.3-12.2) % Eos % (Auto) (0.8-7.0) Baso % (Auto) (0.1-1.2) % Neut # (Auto) (1.78-5.38) K/mm3 Lymph # (Auto) (1.32-3.57) K/mm3 [place] # (Auto) (0.30-0.82) K/mm3 Eos # (Auto) (0.04-0.54) K/mm3 Baso # (Auto) (0.01-0.08) K/mm3 D-Dimer, Quantitative (0.19-0.50) mg/L Sodium (136-145) mEq/L Potassium (3.5-5.1) mEq/L Chloride (98-107) mEq/L Carbon Dioxide (21-32) mEq/L Anion Gap (5-15) BUN (7-18) mg/dL Creatinine (0.7-1.3) mg/dL Est Cr Clr Drug Dosing mL/min Estimated GFR (MDRD) (>60) mL/min BUN/Creatinine Ratio (14-18) Glucose (70-99) mg/dL POC Glucose 92 (70-99) mg/dL Calcium (8.5-10.1) mg/dL Magnesium (1.8-2.4) mg/dL Total Bilirubin (0.2-1.0) mg/dL AST (15-37) U/L ALT (16-63) U/L Alkaline Phosphatase (46-116) U/L C-Reactive Protein (<1.0) mg/dL Total Protein (6.4-8.2) g/dl Albumin (3.4-5.0) g/dl Globulin gm/dL Albumin/Globulin Ratio (1-2) Med Orders - Current: Current Medications Acetaminophen (Acetaminophen 325 Mg Tab) 650 mg PO Q4H PRN PRN Reason: Pain (Mild 1-3)/fever Last Admin: 04/30/21 16:11 Dose: 650 mg Documented by: Albuterol (Albuterol 0.083% 2.5 Mg/3 Ml Neb Soln) 2.5 mg NEB Q2H PRN PRN Reason: Shortness Of Breath/wheezing Albuterol (Albuterol 6.7 Gm Inhaler) 0 gm INH Q2H PRN PRN Reason: SOB/Wheezing Albuterol/Ipratropium (Albuterol/Ipratropium 3.0-0.5 Mg/3 Ml Neb Soln) 3 ml NEB QIDRT PRN PRN Reason: Shortness Of Breath/wheezing Aspirin (Aspirin 81 Mg Tab.Chew) 81 mg PO DAILY [facility] Last Admin: 05/02/21 08:59 Dose: 81 mg Documented by: Carvedilol (Carvedilol 3.125 Mg Tab) 3.125 mg PO BID [facility] Last Admin: 05/02/21 08:59 Dose: 3.125 mg Documented by: Cholecalciferol (Cholecalciferol (Vitamin D3) 5,000 Unit Cap) 5,000 unit PO DAILY [facility] Last Admin: 05/02/21 08:59 Dose: 5,000 unit Documented by: Enoxaparin Sodium (Enoxaparin 40 Mg/0.4 Ml Syringe) 40 mg SUBCUT DAILY [facility] Last Admin: 05/02/21 08:58 Dose: 40 mg Documented by: Remdesivir 100 mg/ Sodium (Chloride) 250 mls @ 250 mls/hr IV Q24H [facility] Stop: 05/04/21 14:59 Last Admin: 05/02/21 14:03 Dose: 250 mls/hr Documented by: Insulin Human Lispro (Insulin Lispro 100 Unit/Ml 3 Ml Kwikpen) 0 unit SUBCUT QIDACANDBED [facility]; Protocol Last Admin: 05/02/21 16:07 Dose: Not Given Documented by: Ondansetron HCl (Ondansetron 4 Mg/2 Ml Sdv) 4 mg IV Q6H PRN PRN Reason: Nausea/Vomiting Senna/Docusate Sodium (Docusate Sodium/Sennosides 50-8.6 Mg Tab) 1 tab PO BID PRN PRN Reason: Constipation Tamsulosin HCl (Tamsulosin 0.4 Mg Cap.Er) 0.4 mg PO BEDTIME [facility] Last Admin: 05/01/21 21:13 Dose: 0.4 mg Documented by: Discontinued Medications Sodium Chloride (Normal Saline) 500 mls @ 1,000 mls/hr IV .BOLUS ONE Stop: 04/30/21 05:07 Last Admin: 04/30/21 04:45 Dose: 1,000 mls/hr Documented by: Magnesium Sulfate 2 gm/ Premix 50 mls @ 25 mls/hr IV ONETIME ONE Stop: 04/30/21 07:36 Last Admin: 04/30/21 05:51 Dose: 25 mls/hr Documented by: Remdesivir 200 mg/ Sodium (Chloride) 250 mls @ 250 mls/hr IV ONETIME [facility] Stop: 04/30/21 18:00 Last Admin: 04/30/21 16:13 Dose: 250 mls/hr Documented by: Sodium Chloride (Normal Saline) 100 mls @ 75 mls/hr IV ASDIRECTED [facility] Stop: 04/30/21 18:00 Last Admin: 04/30/21 14:53 Dose: 75 mls/hr Documented by: Sodium Chloride (Normal Saline) Confirm Administered Dose 250 mls @ as directed .ROUTE .STK-MED ONE Stop: 04/30/21 15:57 Last Admin: 04/30/21 16:11 Dose: Not Given Documented by: Iopamidol (Iopamidol 755 Mg/Ml 100 Ml Bottle) 100 ml IVPUSH ONETIME ONE Stop: 04/30/21 14:49 Last Admin: 04/30/21 14:52 Dose: 100 ml Documented by: Sodium Chloride (Sodium Chloride 0.9% 10 Ml Syringe) 10 ml FLUSH ONETIME PRN PRN Reason: IV FLUSH Stop: 04/30/21 18:00 Last Admin: 04/30/21 14:53 Dose: 10 ml Documented by: - Patient Data Lab Results Last 24 hrs: Laboratory Results - last 24 hr 05/01/21 05/02/21 05/02/21 Range/Units 21:07 04:56 04:56 WBC 3.00 L (4.23-9.07) K/mm3 RBC 4.10 L (4.63-6.08) M/mm3 Hgb 14.6 (13.7-17.5) gm/dl Hct 43.5 (40.1-51.0) % MCV 106.1 H (79.0-92.2) fl MCH 35.6 H (25.7-32.2) pg MCHC 33.6 (32.2-35.5) g/dl RDW Std Deviation 52.4 H (35.1-43.9) fL Plt Count 124 L (163-337) K/mm3 MPV 11.2 (9.4-12.3) fl Neut % (Auto) 69.8 H (34.0-67.9) % Lymph % (Auto) 21.3 L (21.8-53.1) % Posey % (Auto) 7.3 (5.3-12.2) % Eos % (Auto) 1.3 (0.8-7.0) Baso % (Auto) 0.3 (0.1-1.2) % Neut # (Auto) 2.09 (1.78-5.38) K/mm3 Lymph # (Auto) 0.64 L (1.32-3.57) K/mm3 Posey # (Auto) 0.22 L (0.30-0.82) K/mm3 Eos # (Auto) 0.04 (0.04-0.54) K/mm3 Baso # (Auto) 0.01 (0.01-0.08) K/mm3 D-Dimer, Quantitative 1.88 H (0.19-0.50) mg/L Sodium (136-145) mEq/L Potassium (3.5-5.1) mEq/L Chloride (98-107) mEq/L Carbon Dioxide (21-32) mEq/L Anion Gap (5-15) BUN (7-18) mg/dL Creatinine (0.7-1.3) mg/dL Est Cr Clr Drug Dosing mL/min Estimated GFR (MDRD) (>60) mL/min BUN/Creatinine Ratio (14-18) Glucose (70-99) mg/dL POC Glucose 153 H (70-99) mg/dL Calcium (8.5-10.1) mg/dL Magnesium (1.8-2.4) mg/dL Total Bilirubin (0.2-1.0) mg/dL AST (15-37) U/L ALT (16-63) U/L Alkaline Phosphatase (46-116) U/L C-Reactive Protein (<1.0) mg/dL Total Protein (6.4-8.2) g/dl Albumin (3.4-5.0) g/dl Globulin gm/dL Albumin/Globulin Ratio (1-2) 05/02/21 05/02/21 05/02/21 Range/Units 04:56 06:49 11:07 WBC (4.23-9.07) K/mm3 RBC (4.63-6.08) M/mm3 Hgb (13.7-17.5) gm/dl Hct (40.1-51.0) % MCV (79.0-92.2) fl MCH (25.7-32.2) pg MCHC (32.2-35.5) g/dl RDW Std Deviation (35.1-43.9) fL Plt Count (163-337) K/mm3 MPV (9.4-12.3) fl Neut % (Auto) (34.0-67.9) % Lymph % (Auto) (21.8-53.1) % Posey % (Auto) (5.3-12.2) % Eos % (Auto) (0.8-7.0) Baso % (Auto) (0.1-1.2) % Neut # (Auto) (1.78-5.38) K/mm3 Lymph # (Auto) (1.32-3.57) K/mm3 Posey # (Auto) (0.30-0.82) K/mm3 Eos # (Auto) (0.04-0.54) K/mm3 Baso # (Auto) (0.01-0.08) K/mm3 D-Dimer, Quantitative (0.19-0.50) mg/L Sodium 137 (136-145) mEq/L Potassium 3.6 (3.5-5.1) mEq/L Chloride 102 (98-107) mEq/L Carbon Dioxide 21 (21-32) mEq/L Anion Gap 17.6 H (5-15) BUN 25 H (7-18) mg/dL Creatinine 0.9 (0.7-1.3) mg/dL Est Cr Clr Drug Dosing 63.91 mL/min Estimated GFR (MDRD) > 60 (>60) mL/min BUN/Creatinine Ratio 27.8 H (14-18) Glucose 111 H (70-99) mg/dL POC Glucose 129 H 201 H (70-99) mg/dL Calcium 7.9 L (8.5-10.1) mg/dL Magnesium 2.0 (1.8-2.4) mg/dL Total Bilirubin 1.2 H (0.2-1.0) mg/dL AST 121 H (15-37) U/L ALT 49 (16-63) U/L Alkaline Phosphatase 60 (46-116) U/L C-Reactive Protein 5.3 H* (<1.0) mg/dL Total Protein 5.4 L (6.4-8.2) g/dl Albumin 2.9 L (3.4-5.0) g/dl Globulin 2.5 gm/dL Albumin/Globulin Ratio 1.2 (1-2) 05/02/21 Range/Units 15:57 WBC (4.23-9.07) K/mm3 RBC (4.63-6.08) M/mm3 Hgb (13.7-17.5) gm/dl Hct (40.1-51.0) % MCV (79.0-92.2) fl MCH (25.7-32.2) pg MCHC (32.2-35.5) g/dl RDW Std Deviation (35.1-43.9) fL Plt Count (163-337) K/mm3 MPV (9.4-12.3) fl Neut % (Auto) (34.0-67.9) % Lymph % (Auto) (21.8-53.1) % Posey % (Auto) (5.3-12.2) % Eos % (Auto) (0.8-7.0) Baso % (Auto) (0.1-1.2) % Neut # (Auto) (1.78-5.38) K/mm3 Lymph # (Auto) (1.32-3.57) K/mm3 Posey # (Auto) (0.30-0.82) K/mm3 Eos # (Auto) (0.04-0.54) K/mm3 Baso # (Auto) (0.01-0.08) K/mm3 D-Dimer, Quantitative (0.19-0.50) mg/L Sodium (136-145) mEq/L Potassium (3.5-5.1) mEq/L Chloride (98-107) mEq/L Carbon Dioxide (21-32) mEq/L Anion Gap (5-15) BUN (7-18) mg/dL Creatinine (0.7-1.3) mg/dL Est Cr Clr Drug Dosing mL/min Estimated GFR (MDRD) (>60) mL/min BUN/Creatinine Ratio (14-18) Glucose (70-99) mg/dL POC Glucose 92 (70-99) mg/dL Calcium (8.5-10.1) mg/dL Magnesium (1.8-2.4) mg/dL Total Bilirubin (0.2-1.0) mg/dL AST (15-37) U/L ALT (16-63) U/L Alkaline Phosphatase (46-116) U/L C-Reactive Protein (<1.0) mg/dL Total Protein (6.4-8.2) g/dl Albumin (3.4-5.0) g/dl Globulin gm/dL Albumin/Globulin Ratio (1-2) Result Diagrams: 05/02/21 04:56 05/02/21 04:56 Sepsis Event Note - Focused Exam Vital Signs: Vital Signs Temp Pulse Resp BP Pulse Ox 05/02/21 14:28 96.1 F L 58 L 18 105/66 92 L 05/02/21 11:09 97.2 F 67 18 111/78 93 L 05/02/21 08:59 72 131/68 05/02/21 08:56 96.6 F L 72 15 131/68 93 L - Plan Plan:: Case discussed in full. Agree with evaluation, assessment and plan. -Vivek Stapleton Jr.
[2021-05-02] MEDS: Enoxaparin 40 MG/0.4 ML Syringe SUBCUT SCH (08:58)
[2021-05-02] MEDS: Aspirin 81 MG Tab.Chew PO SCH (08:59)
[2021-05-02] MEDS: Carvedilol 3.125 MG Tab PO SCH ×2 (08:59→21:56)
[2021-05-02] MEDS: Cholecalciferol (Vitamin D3) 5,000 UNIT Cap PO SCH (08:59)
[2021-05-02] MEDS: REMDESIVIR 100 MG in Sodium Chloride 0.9% 250 ML IV SCH (14:03)
[2021-05-02] MEDS: Tamsulosin 0.4 MG Cap.ER PO SCH (21:56)
[2021-05-03] MEDS: Insulin Lispro 100 Unit/ML 3 ML KwikPen SUBCUT SCH ×2 (07:47→11:26)
--- NOTE | 2021-05-03 09:06 | PCM.DCSUM1 ---
<Mono Wakefield - Last Filed: 05/03/21 09:35> Discharge Summary - Hospital Course HPI Initial Comments: This is an 86-year-old male who presents to our ED in the very product info specialist hours of 04/30/2021 via [place] [facility] due to generalized weakness. He reportedly was on the toilet and was too weak to get off so he slid down and then could not get off of the ground. He was uninjured denying any pain and did not hit his head or lose consciousness. He was in our ED on the evening of 04/29/2021 due to lightheadedness, dizziness, and weakness. He reports he tested positive for Covid on 04/25/2021. He lives at home with his who is also Covid positive. He reports he has had a fever and very minimal oral intake. On his initial visit twelve-lead EKG is obtained showing a sinus rhythm at 93 bpm with left axis deviation and enlarged P waves suggesting left atrial hypertrophy. There is a left anterior fascicular block pattern with right bundle branch block pattern QT was moderately prolonged. Labs at that time showed a leukopenia of 3.89 and a thrombocytopenia of 115. Sodium was low at 135. BUN was elevated at 22 and creatinine was 1.2 with a GFR of 58. Glucose was elevated at 150. Total bilirubin was 1.5. Troponin was 0.022 and CRP was 4.9. proBNP was 1662. He was given monoclonal antibodies, IV fluids and some Tylenol and discharged home. On return to the emergency room today he denies any chest pain, shortness of breath, vomiting, diarrhea. Twelve-lead EKG is again obtained showing a sinus tachycardia at 112 bpm with right axis deviation and a right bundle branch block. He does appear dry. Temp is 36.7 Celsius. Pulse 112. Respirations 25. Blood pressure 134/73. Pulse ox is 92% on room air. Labs are obtained with a WBC of 5.30. Hemoglobin 14.4. Platelet 209,000. Neutrophils are elevated at 92.0. Sodium is low at 132. Potassium 4.0. Chloride 98. Carbon dioxide 20. Anion gap is 18.0. BUN is 22. Creatinine 1.2. GFR is 58. Glucose is high at 224. Magnesium is 1.6. UA is obtained and shows concentrated urine with trace glucose, trace ketones, 1+ protein, 1+ occult blood, moderate bacteria and moderate mucus. Ketones are 1.51. He is given a 500 mL fluid bolus and 2 g of magnesium. Plan was to look at transferring the patient as no beds were available here however this fell through. A bed did open up. Patient was ultimately accepted for further Covid treatment and PT/OT for his generalized weakness. He will be inpatient with telemetry. He carries a history of CAD, cardiac bypass, CHF, HLD, HTN, GERD, BPH, arthritis, type II DM, polycythemia. He was never smoker. His PCP is Dr. Street. He sees Nettie Faye for Heme/Onc. He has a DNR/DNI. Diagnosis: Stroke: No - Discharge Data Discharge Date: 05/03/21 (Admit date: 04/30/2021) Discharge Disposition: Home, Self-Care 01 Condition: Good - Referral to Home Health Primary Care Physician: Galo Street MD - Discharge Diagnosis/Problem(s) (1) Hypomagnesemia SNOMED Code(s): 978033294 ICD Code: E83.42 - HYPOMAGNESEMIA Status: Resolved Priority: Medium (2) COVID-19 SNOMED Code(s): 750576381 ICD Code: U07.1 - COVID-19 Status: Acute Priority: High (3) Generalized weakness SNOMED Code(s): 99532953 ICD Code: R53.1 - WEAKNESS Status: Acute Priority: High (4) Hyponatremia SNOMED Code(s): 51259489 ICD Code: E87.1 - HYPO-OSMOLALITY AND HYPONATREMIA Status: Resolved Priority: Medium (5) Mild dehydration SNOMED Code(s): 6667883029782 ICD Code: E86.0 - DEHYDRATION Status: Resolved Priority: Medium (6) Type II diabetes mellitus SNOMED Code(s): 67726869 ICD Code: E11.9 - TYPE 2 DIABETES MELLITUS WITHOUT COMPLICATIONS Status: Chronic Priority: Low Qualifiers: Diabetes mellitus snf insulin use: without snf use Diabetes mellitus complication status: with other specified complication Qualified Code(s): E11.69 - Type 2 diabetes mellitus with other specified complication (7) Thrombocytopenia SNOMED Code(s): 661636631 ICD Code: D69.6 - THROMBOCYTOPENIA, UNSPECIFIED Status: Acute Priority: Medium (8) Polycythemia SNOMED Code(s): 624986658 ICD Code: D75.1 - SECONDARY POLYCYTHEMIA Status: Chronic Priority: Low (9) History of heart bypass surgery SNOMED Code(s): 470035812 ICD Code: Z95.1 - PRESENCE OF AORTOCORONARY BYPASS GRAFT Status: Chronic Priority: Low (10) HLD (hyperlipidemia) SNOMED Code(s): 32632013 ICD Code: E78.5 - HYPERLIPIDEMIA, UNSPECIFIED Status: Chronic Priority: Low Qualifiers: Hyperlipidemia type: unspecified Qualified Code(s): E78.5 - Hyperlipidemia, unspecified (11) HTN (hypertension) SNOMED Code(s): 01807068 ICD Code: I10 - ESSENTIAL (PRIMARY) HYPERTENSION Status: Chronic Priority: Medium Qualifiers: Hypertension type: unspecified Qualified Code(s): I10 - Essential (primary) hypertension (12) CAD (coronary artery disease) SNOMED Code(s): 09151039 ICD Code: I25.10 - ATHSCL HEART DISEASE OF [place] CORONARY ARTERY W/O ANG PCTRS Status: Chronic Priority: Low Qualifiers: Coronary Disease-Associated Artery/Lesion type: bypass graft [place] vs. transplanted heart: [place] heart Associated angina: without angina Qualified Code(s): I25.810 - Atherosclerosis of coronary artery bypass graft(s) without angina pectoris (13) GERD (gastroesophageal reflux disease) SNOMED Code(s): 136695709 ICD Code: K21.9 - GASTRO-ESOPHAGEAL REFLUX DISEASE WITHOUT ESOPHAGITIS Status: Chronic Priority: Low Qualifiers: Esophagitis presence: esophagitis presence not specified Qualified Code(s): K21.9 - Gastro-esophageal reflux disease without esophagitis (14) BPH (benign prostatic hyperplasia) SNOMED Code(s): 327315181 ICD Code: N40.0 - BENIGN PROSTATIC HYPERPLASIA WITHOUT LOWER URINRY TRACT SYMP Status: Chronic Priority: Low Qualifiers: Lower urinary tract symptom presence: symptoms absent Qualified Code(s): N40.0 - Benign prostatic hyperplasia without lower urinary tract symptoms (15) Elevated d-dimer SNOMED Code(s): 725019393 ICD Code: R79.89 - OTHER SPECIFIED ABNORMAL FINDINGS OF BLOOD CHEMISTRY Status: Acute Priority: High (16) Vitamin D deficiency SNOMED Code(s): 70169044 ICD Code: E55.9 - VITAMIN D DEFICIENCY, UNSPECIFIED Status: Acute P riority: Medium (17) Elevated C-reactive protein (CRP) SNOMED Code(s): 197822312510755 ICD Code: R79.82 - ELEVATED C-REACTIVE PROTEIN (CRP) Status: Acute Priority: High - Patient Summary/Data Consults: Consultations 04/30/21 12:34 Consult to Case Management/Energy Consultant [CONS] Routine Consult to Spiritual Care [CONS] Routine 04/30/21 12:36 OT Evaluation and Treatment [CONS] Routine PT Evaluation and Treatment [CONS] Routine Respiratory Care Assess and Treatment [CONS] Routine 04/30/21 12:43 Consult to Surgical Lead [CONS] Routine Labs Pending at D/C: None Recommended Follow-up Testing/Procedures: Follow-up with primary care provider within 7 to 10 days of discharge, sooner if needed. * Patient's vitamin D was checked and was low here. He was discharged on supplementation. Please follow-up with this. * Patient has had no respiratory symptoms with his Covid. * Resume all home medications. No home medication changes * Recheck CBC, CMP, magnesium in follow-up. * Patient's D-dimer was elevated while here. CTA and venous Doppler of lower extremities were both negative. * Patient instructed to quarantine for a total of 10 days from symptom onset. Hospital Course: This is an 86-year-old male admitted to the floor due to generalized weakness secondary to COVID-19 pneumonia. Carries a history of CAD, cardiac bypass, CHF, HLD, hypertension, GERD, BPH, arthritis, type II DM, polycythemia. Throughout his stay patient has been on room air with saturations initially in the low 90s and now in the upper 90s prior to discharge. Given his saturations below 94% patient was started on remdesivir and he completed 4 doses of this prior to discharge. Lungs have remained clear there were no respiratory concerns. He was utilizing incentive spirometry and Acapella. He did not receive steroids. Blood sugars have remained stable. D-dimer was checked on admission was 2.73. CTA of the chest was obtained showing no signs of pulmonary embolism however patchy areas of increased densities are seen throughout both sides the chest. Chronic findings were also noticed. Venous Doppler study of the lower extremities was obtained and was negative for any DVT. Patient was receiving Lovenox in addition to his daily baby aspirin. Vitamin D was checked and was quite low at 15.9. He was started on 5000 units daily supplement and this will be continued at discharge. Electrolytes were supplemented. Overall patient did very well. He worked with physical therapy and Occupational Therapy and his strength and endurance improved. PT and OT are recommending home with no further services. He will be discharged home today. All prior home medications were continued. Prescription for 5000 units vitamin D supplementation was sent to his pharmacy as noted prior. He was instructed to continue to quarantine/isolate for a total of 10 days from symptom onset. Recommend follow- up with primary care provider within 7 to 10 days of discharge, sooner if needed. Recommend repeat CBC, CMP, and magnesium in follow-up. Consider repeat chest x-ray. Patient instructed to contact primary care provider return the emergency room should symptoms return or worsen. - Patient Instructions Diet: Diabetic Diet Activity: As Tolerated Driving: Do Not Drive (Until feeling better ) Showering/Bathing: May Shower Notify Provider of: Fever, Increased Pain, Nausea and/or Vomiting Other/Special Instructions: Follow-up with primary care provider within 7 to 10 days of discharge, sooner if needed. Stay active but rest if needed. It will likely take you some time to get your strength back. Your vitamin D was checked here and was low. You were started on supplementation for this and the prescription was sent to your pharmacy. Please follow-up with your primary care provider regarding this. Resume home medications. No medication changes. You should continue to isolate/quarantine for a total of 10 days from symptom onset. You will likely receive a call from a lumber kiln operator from the [facility]. Follow their directions. Should symptoms return or worsen contact your primary care provider or return the emergency room. - Discharge Plan *PRESCRIPTION DRUG MONITORING PROGRAM REVIEWED*: Not Applicable *COPY OF PRESCRIPTION DRUG MONITORING REPORT IN PATIENT DANIEL: Not Applicable Prescriptions/Med Rec: Cholecalciferol (Vitamin D3) [Vitamin D3] 5,000 unit PO DAILY #20 cap Home Medications: Home Meds metFORMIN HCl [Metformin HCl] 500 mg PO BID 10/13/15 [History] Aspirin 81 mg PO DAILY 10/13/19 [History] Hydroxyurea 500 mg PO DAILY 10/13/19 [History] Tamsulosin HCl 0.4 mg PO BEDTIME 10/13/19 [History] carvediloL [Carvedilol] 3.125 mg PO BID 10/13/19 [History] Pravastatin [Pravachol] 40 mg PO BEDTIME 04/29/21 [History] Cholecalciferol (Vitamin D3) [Vitamin D3] 5,000 unit PO DAILY #20 cap 05/03/21 [Rx] Oxygen Therapy Mode: Room Air Patient Handouts: COVID-19 Frequently Asked Questions, COVID-19, Weakness, [id number], Heart Failure Action Plan, 10 Things You Can Do to Manage Your COVID-19 Symptoms at Home - [facility] (12/08/2020), Dehydration, Adult, [id number], Sepsis, Self Care, Adult Forms: ED Department Discharge Referrals: Nettie Martinez NP [Ordering Only Provider] - (Follow up as needed) Galo Street MD [Primary Care Provider] - 05/10/21 4:30 pm (Please arrive at 4:15 to check in) - Discharge Summary/Plan Comment DC Time >30 min.: No Total # of Minutes for Discharge Time: 25 - General Info Date of Service: 05/03/21 Functional Status: Reports: Pain Controlled, Tolerating Diet, Ambulating, Urinating, Incentive Spirometry, Other (Acapella ). Denies: New Symptoms - Review of Systems General: Reports: Weakness (Improved ). Denies: Fever, Fatigue, Malaise, Chills HEENT: Reports: No Symptoms. Denies: Headaches, Sore Throat Pulmonary: Reports: No Symptoms. Denies: Shortness of Breath, Cough, Sputum, Wheezing Cardiovascular: Reports: No Symptoms. Denies: Chest Pain, Palpitations, Dyspnea on Exertion, Lightheadedness Gastrointestinal: Reports: No Symptoms. Denies: Abdominal Pain, Constipation, Decreased Appetite, Difficulty Swallowing, Nausea, Vomiting Genitourinary: Reports: No Symptoms. Denies: Pain Musculoskeletal: Reports: No Symptoms Skin: Reports: No Symptoms. Denies: Cyanosis Neurological: Reports: No Symptoms. Denies: Confusion, Dizziness, Headache, Numbness, Pre-Existing Deficit, Seizure, Syncope, Tingling, Difficulty Walking, Gait Disturbance Psychiatric: Reports: No Symptoms - Patient Data Vitals - Most Recent: Last Vital Signs Temp 97.0 F 05/03/21 03:52 Pulse 65 05/03/21 03:52 Resp 16 05/03/21 03:52 BP 122/91 H 05/03/21 03:52 Pulse Ox 95 05/03/21 03:52 Weight - Most Recent: 188 lb 4.8 oz I&O - Last 24 hours: Intake & Output 05/02/21 05/03/21 05/03/21 22:59 06:59 14:59 Intake Total 835 400 Output Total 650 550 Balance 185 -150 Lab Results - Last 24 hrs: Laboratory Results - last 24 hr 05/02/21 05/02/21 05/02/21 Range/Units 11:07 15:57 21:53 WBC (4.23-9.07) K/mm3 RBC (4.63-6.08) M/mm3 Hgb (13.7-17.5) gm/dl Hct (40.1-51.0) % MCV (79.0-92.2) fl MCH (25.7-32.2) pg MCHC (32.2-35.5) g/dl RDW Std Deviation (35.1-43.9) fL Plt Count (163-337) K/mm3 MPV (9.4-12.3) fl Neut % (Auto) (34.0-67.9) % Lymph % (Auto) (21.8-53.1) % Roberts % (Auto) (5.3-12.2) % Eos % (Auto) (0.8-7.0) Baso % (Auto) (0.1-1.2) % Neut # (Auto) (1.78-5.38) K/mm3 Lymph # (Auto) (1.32-3.57) K/mm3 Roberts # (Auto) (0.30-0.82) K/mm3 Eos # (Auto) (0.04-0.54) K/mm3 Baso # (Auto) (0.01-0.08) K/mm3 Sodium (136-145) mEq/L Potassium (3.5-5.1) mEq/L Chloride (98-107) mEq/L Carbon Dioxide (21-32) mEq/L Anion Gap (5-15) BUN (7-18) mg/dL Creatinine (0.7-1.3) mg/dL Est Cr Clr Drug Dosing mL/min Estimated GFR (MDRD) (>60) mL/min BUN/Creatinine Ratio (14-18) Glucose (70-99) mg/dL POC Glucose 201 H 92 127 H (70-99) mg/dL Calcium (8.5-10.1) mg/dL Magnesium (1.8-2.4) mg/dL Total Bilirubin (0.2-1.0) mg/dL AST (15-37) U/L ALT (16-63) U/L Alkaline Phosphatase (46-116) U/L C-Reactive Protein (<1.0) mg/dL Total Protein (6.4-8.2) g/dl Albumin (3.4-5.0) g/dl Globulin gm/dL Albumin/Globulin Ratio (1-2) 05/03/21 05/03/21 05/03/21 Range/Units 04:54 04:54 06:39 WBC 3.88 L (4.23-9.07) K/mm3 RBC 3.99 L (4.63-6.08) M/mm3 Hgb 14.5 (13.7-17.5) gm/dl Hct 42.3 (40.1-51.0) % MCV 106.0 H (79.0-92.2) fl MCH 36.3 H (25.7-32.2) pg MCHC 34.3 (32.2-35.5) g/dl RDW Std Deviation 52.6 H (35.1-43.9) fL Plt Count 150 L (163-337) K/mm3 MPV 10.7 (9.4-12.3) fl Neut % (Auto) 72.1 H (34.0-67.9) % Lymph % (Auto) 17.3 L (21.8-53.1) % Roberts % (Auto) 9.0 (5.3-12.2) % Eos % (Auto) 1.3 (0.8-7.0) Baso % (Auto) 0.3 (0.1-1.2) % Neut # (Auto) 2.80 (1.78-5.38) K/mm3 Lymph # (Auto) 0.67 L (1.32-3.57) K/mm3 Roberts # (Auto) 0.35 (0.30-0.82) K/mm3 Eos # (Auto) 0.05 (0.04-0.54) K/mm3 Baso # (Auto) 0.01 (0.01-0.08) K/mm3 Sodium 138 (136-145) mEq/L Potassium 3.7 (3.5-5.1) mEq/L Chloride 103 (98-107) mEq/L Carbon Dioxide 23 (21-32) mEq/L Anion Gap 15.7 H (5-15) BUN 21 H (7-18) mg/dL Creatinine 0.8 (0.7-1.3) mg/dL Est Cr Clr Drug Dosing 71.90 mL/min Estimated GFR (MDRD) > 60 (>60) mL/min BUN/Creatinine Ratio 26.3 H (14-18) Glucose 142 H (70-99) mg/dL POC Glucose 149 H (70-99) mg/dL Calcium 8.0 L (8.5-10.1) mg/dL Magnesium 1.9 (1.8-2.4) mg/dL Total Bilirubin 1.3 H (0.2-1.0) mg/dL AST 92 H (15-37) U/L ALT 50 (16-63) U/L Alkaline Phosphatase 63 (46-116) U/L C-Reactive Protein 3.0 H* (<1.0) mg/dL Total Protein 5.5 L (6.4-8.2) g/dl Albumin 2.9 L (3.4-5.0) g/dl Globulin 2.6 gm/dL Albumin/Globulin Ratio 1.1 (1-2) Med Orders - Current: Current Medications Acetaminophen (Acetaminophen 325 Mg Tab) 650 mg PO Q4H PRN PRN Reason: Pain (Mild 1-3)/fever Last Admin: 04/30/21 16:11 Dose: 650 mg Documented by: Albuterol (Albuterol 0.083% 2.5 Mg/3 Ml Neb Soln) 2.5 mg NEB Q2H PRN PRN Reason: Shortness Of Breath/wheezing Albuterol (Albuterol 6.7 Gm Inhaler) 0 gm INH Q2H PRN PRN Reason: SOB/Wheezing Albuterol/Ipratropium (Albuterol/Ipratropium 3.0-0.5 Mg/3 Ml Neb Soln) 3 ml NEB QIDRT PRN PRN Reason: Shortness Of Breath/wheezing Aspirin (Aspirin 81 Mg Tab.Chew) 81 mg PO DAILY [facility] Last Admin: 05/02/21 08:59 Dose: 81 mg Documented by: Carvedilol (Carvedilol 3.125 Mg Tab) 3.125 mg PO BID [facility] Last Admin: 05/02/21 21:56 Dose: 3.125 mg Documented by: Cholecalciferol (Cholecalciferol (Vitamin D3) 5,000 Unit Cap) 5,000 unit PO DAILY [facility] Last Admin: 05/02/21 08:59 Dose: 5,000 unit Documented by: Enoxaparin Sodium (Enoxaparin 40 Mg/0.4 Ml Syringe) 40 mg SUBCUT DAILY [facility] Last Admin: 05/02/21 08:58 Dose: 40 mg Documented by: Remdesivir 100 mg/ Sodium (Chloride) 250 mls @ 250 mls/hr IV Q24H [facility] Stop: 05/04/21 10:59 Insulin Human Lispro (Insulin Lispro 100 Unit/Ml 3 Ml Kwikpen) 0 unit SUBCUT QIDACANDBED [facility]; Protocol Last Admin: 05/03/21 07:47 Dose: Not Given Documented by: Ondansetron HCl (Ondansetron 4 Mg/2 Ml Sdv) 4 mg IV Q6H PRN PRN Reason: Nausea/Vomiting Senna/Docusate Sodium (Docusate Sodium/Sennosides 50-8.6 Mg Tab) 1 tab PO BID PRN PRN Reason: Constipation Tamsulosin HCl (Tamsulosin 0.4 Mg Cap.Er) 0.4 mg PO BEDTIME [facility] Last Admin: 05/02/21 21:56 Dose: 0.4 mg Documented by: Discontinued Medications Sodium Chloride (Normal Saline) 500 mls @ 1,000 mls/hr IV .BOLUS ONE Stop: 04/30/21 05:07 Last Admin: 04/30/21 04:45 Dose: 1,000 mls/hr Documented by: Magnesium Sulfate 2 gm/ Premix 50 mls @ 25 mls/hr IV ONETIME ONE Stop: 04/30/21 07:36 Last Admin: 04/30/21 05:51 Dose: 25 mls/hr Documented by: Remdesivir 200 mg/ Sodium (Chloride) 250 mls @ 250 mls/hr IV ONETIME KEVIN Stop: 04/30/21 18:00 Last Admin: 04/30/21 16:13 Dose: 250 mls/hr Documented by: Sodium Chloride (Normal Saline) 100 mls @ 75 mls/hr IV ASDIRECTED KEVIN Stop: 04/30/21 18:00 Last Admin: 04/30/21 14:53 Dose: 75 mls/hr Documented by: Sodium Chloride (Normal Saline) Confirm Administered Dose 250 mls @ as directed .ROUTE .STK-MED ONE Stop: 04/30/21 15:57 Last Admin: 04/30/21 16:11 Dose: Not Given Documented by: Remdesivir 100 mg/ Sodium (Chloride) 250 mls @ 250 mls/hr IV Q24H KEVIN Stop: 05/04/21 14:59 Last Admin: 05/02/21 14:03 Dose: 250 mls/hr Documented by: Iopamidol (Iopamidol 755 Mg/Ml 100 Ml Bottle) 100 ml IVPUSH ONETIME ONE Stop: 04/30/21 14:49 Last Admin: 04/30/21 14:52 Dose: 100 ml Documented by: Sodium Chloride (Sodium Chloride 0.9% 10 Ml Syringe) 10 ml FLUSH ONETIME PRN PRN Reason: IV FLUSH Stop: 04/30/21 18:00 Last Admin: 04/30/21 14:53 Dose: 10 ml Documented by: - Exam Quality Assessment: Reports: DVT Prophylaxis. Denies: Supplemental Oxygen, Urine Catheter General: Reports: Alert, Oriented, Cooperative, No Acute Distress HEENT: Reports: Pupils Equal, Pupils Reactive, Mucous Membr. Moist/[place] Neck: Reports: Supple, Trachea Midline Lungs: Reports: Clear to Auscultation, Normal Respiratory Effort Cardiovascular: Reports: Regular Rate, Regular Rhythm GI/Abdominal Exam: Normal Bowel Sounds, Soft, Non-Tender, No Distention (Male) Exam: Deferred Rectal (Males) Exam: Deferred Back Exam: Reports: Normal Inspection, Full Range of Motion Extremities: Normal Inspection, Normal Range of Motion, Non-Tender, No Pedal Edema, Normal Capillary Refill Skin: Reports: Warm, Dry, Intact Neurological: Reports: No New Focal Deficit Psy/Mental Status: Reports: Alert, Normal Affect, Normal Mood <Ernie Lange Jr - Last Filed: 05/03/21 18:24> Discharge Summary - Referral to Home Health Primary Care Physician: Galo Street MD - Patient Summary/Data Consults: Consultations 04/30/21 12:34 Consult to Case Management/Energy Consultant [CONS] Routine Consult to Spiritual Care [CONS] Routine 04/30/21 12:36 OT Evaluation and Treatment [CONS] Routine PT Evaluation and Treatment [CONS] Routine Respiratory Care Assess and Treatment [CONS] Routine 04/30/21 12:43 Consult to Surgical Lead [CONS] Routine - Discharge Summary/Plan Comment Discharge Summary/Plan Comment: Case discussed in full. Agree with evaluation, assessment and plan. -Vivek Stapleton Jr., DO - Patient Data Vitals - Most Recent: Last Vital Signs Temp 97.5 F 05/03/21 11:08 Pulse 73 05/03/21 11:08 Resp 21 H 05/03/21 11:08 BP 130/99 H 05/03/21 11:08 Pulse Ox 96 05/03/21 11:08 I&O - Last 24 hours: Intake & Output 05/03/21 05/03/21 05/03/21 06:59 14:59 22:59 Intake Total 400 440 90 Output Total 550 350 Balance -150 90 90 Lab Results - Last 24 hrs: Laboratory Results - last 24 hr 05/02/21 05/03/21 05/03/21 Range/Units 21:53 04:54 04:54 WBC 3.88 L (4.23-9.07) K/mm3 RBC 3.99 L (4.63-6.08) M/mm3 Hgb 14.5 (13.7-17.5) gm/dl Hct 42.3 (40.1-51.0) % MCV 106.0 H (79.0-92.2) fl MCH 36.3 H (25.7-32.2) pg MCHC 34.3 (32.2-35.5) g/dl RDW Std Deviation 52.6 H (35.1-43.9) fL Plt Count 150 L (163-337) K/mm3 MPV 10.7 (9.4-12.3) fl Neut % (Auto) 72.1 H (34.0-67.9) % Lymph % (Auto) 17.3 L (21.8-53.1) % Roberts % (Auto) 9.0 (5.3-12.2) % Eos % (Auto) 1.3 (0.8-7.0) Baso % (Auto) 0.3 (0.1-1.2) % Neut # (Auto) 2.80 (1.78-5.38) K/mm3 Lymph # (Auto) 0.67 L (1.32-3.57) K/mm3 Roberts # (Auto) 0.35 (0.30-0.82) K/mm3 Eos # (Auto) 0.05 (0.04-0.54) K/mm3 Baso # (Auto) 0.01 (0.01-0.08) K/mm3 Sodium 138 (136-145) mEq/L Potassium 3.7 (3.5-5.1) mEq/L Chloride 103 (98-107) mEq/L Carbon Dioxide 23 (21-32) mEq/L Anion Gap 15.7 H (5-15) BUN 21 H (7-18) mg/dL Creatinine 0.8 (0.7-1.3) mg/dL Est Cr Clr Drug Dosing 71.90 mL/min Estimated GFR (MDRD) > 60 (>60) mL/min BUN/Creatinine Ratio 26.3 H (14-18) Glucose 142 H (70-99) mg/dL POC Glucose 127 H (70-99) mg/dL Calcium 8.0 L (8.5-10.1) mg/dL Magnesium 1.9 (1.8-2.4) mg/dL Total Bilirubin 1.3 H (0.2-1.0) mg/dL AST 92 H (15-37) U/L ALT 50 (16-63) U/L Alkaline Phosphatase 63 (46-116) U/L C-Reactive Protein 3.0 H* (<1.0) mg/dL Total Protein 5.5 L (6.4-8.2) g/dl Albumin 2.9 L (3.4-5.0) g/dl Globulin 2.6 gm/dL Albumin/Globulin Ratio 1.1 (1-2) 05/03/21 05/03/21 Range/Units 06:39 11:06 WBC (4.23-9.07) K/mm3 RBC (4.63-6.08) M/mm3 Hgb (13.7-17.5) gm/dl Hct (40.1-51.0) % MCV (79.0-92.2) fl MCH (25.7-32.2) pg MCHC (32.2-35.5) g/dl RDW Std Deviation (35.1-43.9) fL Plt Count (163-337) K/mm3 MPV (9.4-12.3) fl Neut % (Auto) (34.0-67.9) % Lymph % (Auto) (21.8-53.1) % Roberts % (Auto) (5.3-12.2) % Eos % (Auto) (0.8-7.0) Baso % (Auto) (0.1-1.2) % Neut # (Auto) (1.78-5.38) K/mm3 Lymph # (Auto) (1.32-3.57) K/mm3 Roberts # (Auto) (0.30-0.82) K/mm3 Eos # (Auto) (0.04-0.54) K/mm3 Baso # (Auto) (0.01-0.08) K/mm3 Sodium (136-145) mEq/L Potassium (3.5-5.1) mEq/L Chloride (98-107) mEq/L Carbon Dioxide (21-32) mEq/L Anion Gap (5-15) BUN (7-18) mg/dL Creatinine (0.7-1.3) mg/dL Est Cr Clr Drug Dosing mL/min Estimated GFR (MDRD) (>60) mL/min BUN/Creatinine Ratio (14-18) Glucose (70-99) mg/dL POC Glucose 149 H 212 H (70-99) mg/dL Calcium (8.5-10.1) mg/dL Magnesium (1.8-2.4) mg/dL Total Bilirubin (0.2-1.0) mg/dL AST (15-37) U/L ALT (16-63) U/L Alkaline Phosphatase (46-116) U/L C-Reactive Protein (<1.0) mg/dL Total Protein (6.4-8.2) g/dl Albumin (3.4-5.0) g/dl Globulin gm/dL Albumin/Globulin Ratio (1-2) Med Orders - Current: Current Medications Discontinued Medications Acetaminophen (Acetaminophen 325 Mg Tab) 650 mg PO Q4H PRN PRN Reason: Pain (Mild 1-3)/fever Last Admin: 04/30/21 16:11 Dose: 650 mg Documented by: Albuterol (Albuterol 0.083% 2.5 Mg/3 Ml Neb Soln) 2.5 mg NEB Q2H PRN PRN Reason: Shortness Of Breath/wheezing Albuterol (Albuterol 6.7 Gm Inhaler) 0 gm INH Q2H PRN PRN Reason: SOB/Wheezing Albuterol/Ipratropium (Albuterol/Ipratropium 3.0-0.5 Mg/3 Ml Neb Soln) 3 ml NEB QIDRT PRN PRN Reason: Shortness Of Breath/wheezing Aspirin (Aspirin 81 Mg Tab.Chew) 81 mg PO DAILY [facility] Last Admin: 05/03/21 09:42 Dose: 81 mg Documented by: Carvedilol (Carvedilol 3.125 Mg Tab) 3.125 mg PO BID [facility] Last Admin: 05/03/21 09:42 Dose: 3.125 mg Documented by: Cholecalciferol (Cholecalciferol (Vitamin D3) 5,000 Unit Cap) 5,000 unit PO DAILY [facility] Last Admin: 05/03/21 09:42 Dose: 5,000 unit Documented by: Enoxaparin Sodium (Enoxaparin 40 Mg/0.4 Ml Syringe) 40 mg SUBCUT DAILY [facility] Last Admin: 05/03/21 09:44 Dose: 40 mg Documented by: Sodium Chloride (Normal Saline) 500 mls @ 1,000 mls/hr IV .BOLUS ONE Stop: 04/30/21 05:07 Last Admin: 04/30/21 04:45 Dose: 1,000 mls/hr Documented by: Magnesium Sulfate 2 gm/ Premix 50 mls @ 25 mls/hr IV ONETIME ONE Stop: 04/30/21 07:36 Last Admin: 04/30/21 05:51 Dose: 25 mls/hr Documented by: Remdesivir 200 mg/ Sodium (Chloride) 250 mls @ 250 mls/hr IV ONETIME KEVIN Stop: 04/30/21 18:00 Last Admin: 04/30/21 16:13 Dose: 250 mls/hr Documented by: Sodium Chloride (Normal Saline) 100 mls @ 75 mls/hr IV ASDIRECTED [facility] Stop: 04/30/21 18:00 Last Admin: 04/30/21 14:53 Dose: 75 mls/hr Documented by: Sodium Chloride (Normal Saline) Confirm Administered Dose 250 mls @ as directed .ROUTE .STK-MED ONE Stop: 04/30/21 15:57 Last Admin: 04/30/21 16:11 Dose: Not Given Documented by: Remdesivir 100 mg/ Sodium (Chloride) 250 mls @ 250 mls/hr IV Q24H [facility] Stop: 05/04/21 14:59 Last Admin: 05/02/21 14:03 Dose: 250 mls/hr Documented by: Remdesivir 100 mg/ Sodium (Chloride) 250 mls @ 250 mls/hr IV Q24H [facility] Stop: 05/04/21 10:59 Last Admin: 05/03/21 09:52 Dose: Not Given Documented by: Insulin Human Lispro (Insulin Lispro 100 Unit/Ml 3 Ml Kwikpen) 0 unit SUBCUT QIDACANDBED [facility]; Protocol Last Admin: 05/03/21 11:26 Dose: 4 unit Documented by: Iopamidol (Iopamidol 755 Mg/Ml 100 Ml Bottle) 100 ml IVPUSH ONETIME ONE Stop: 04/30/21 14:49 Last Admin: 04/30/21 14:52 Dose: 100 ml Documented by: Ondansetron HCl (Ondansetron 4 Mg/2 Ml Sdv) 4 mg IV Q6H PRN PRN Reason: Nausea/Vomiting Senna/Docusate Sodium (Docusate Sodium/Sennosides 50-8.6 Mg Tab) 1 tab PO BID PRN PRN Reason: Constipation Sodium Chloride (Sodium Chloride 0.9% 10 Ml Syringe) 10 ml FLUSH ONETIME PRN PRN Reason: IV FLUSH Stop: 04/30/21 18:00 Last Admin: 04/30/21 14:53 Dose: 10 ml Documented by: Tamsulosin HCl (Tamsulosin 0.4 Mg Cap.Er) 0.4 mg PO BEDTIME [facility] Last Admin: 05/02/21 21:56 Dose: 0.4 mg Documented by:
[2021-05-03] MEDS: Aspirin 81 MG Tab.Chew PO SCH (09:42)
[2021-05-03] MEDS: Carvedilol 3.125 MG Tab PO SCH (09:42)
[2021-05-03] MEDS: Cholecalciferol (Vitamin D3) 5,000 UNIT Cap PO SCH (09:42)
[2021-05-03] MEDS: Enoxaparin 40 MG/0.4 ML Syringe SUBCUT SCH (09:44)
[2021-05-03] MEDS: REMDESIVIR 100 MG in Sodium Chloride 0.9% 250 ML IV SCH ×2 (09:45→09:52)
[2021-05-03 12:07] VITALS: BP 130/99; PULSE 73
== END 2021-05-03 14:05 | disposition home or self-care (01) | DRG 178 ==
LOC: JD.ED 04:06 → JD.MS 13:02
PROVIDERS: ADMIT Family Medicine; ATTEND Family Medicine
PROC: 8E0ZXY6 Isolation (ICD-10-PCS; 2021-04-30)
PROC: XW033E5 Introduction of Remdesivir Anti-infective into Peripheral Vein, Percutaneous Approach, New Technology Group 5 (ICD-10-PCS; principal; 2021-05-01)
DX: U07.1 COVID-19 (principal); R53.1 Weakness; I25.10 Atherosclerotic heart disease of native coronary artery without angina pectoris; E87.1 Hypo-osmolality and hyponatremia; I25.810 Atherosclerosis of coronary artery bypass graft(s) without angina pectoris; E83.42 Hypomagnesemia; E86.0 Dehydration; D69.6 Thrombocytopenia, unspecified; K21.9 Gastro-esophageal reflux disease without esophagitis; Z66 Do not resuscitate; N40.0 Benign prostatic hyperplasia without lower urinary tract symptoms; E78.5 Hyperlipidemia, unspecified; E55.9 Vitamin D deficiency, unspecified; M19.90 Unspecified osteoarthritis, unspecified site; E66.9 Obesity, unspecified; E11.9 Type 2 diabetes mellitus without complications; I11.0 Hypertensive heart disease with heart failure; I50.9 Heart failure, unspecified; E78.00 Pure hypercholesterolemia, unspecified; D75.1 Secondary polycythemia; Z95.1 Presence of aortocoronary bypass graft; Z88.1 Allergy status to other antibiotic agents; Z79.84 Long term (current) use of oral hypoglycemic drugs; Z79.82 Long term (current) use of aspirin; Z79.899 Other long term (current) drug therapy; Z68.26 Body mass index [BMI] 26.0-26.9, adult
CPT/HCPCS: 36415; 80048; 81001; 82009; 82306; 83036; 83735; 85025; 85379; J3475; J7030; 71275; 71275-26; 80053; 82947; 86140; 93005; 93970; 93970-26; 94762; 97116-GP; 97162-GP; 97165-GO; 97530-GO; A9270-GY; J1650; J1815; J7050; Q9967

== ENCOUNTER 2022-03-20 09:36 | Emergency (ER) | payer MEDICARE, OTHER ==
[2022-03-20 09:54] VITALS: BP 106/80; PULSE 90
[2022-03-20] MEDS ORDERED: Sodium Chloride 0.9% 10 ML Syringe FLUSH PRN (10:16)
[2022-03-20 11:41] LABS: ESTIMATED GFR 66 mL/min (>60)
== END 2022-03-20 12:52 | disposition home or self-care (01) ==
LOC: JD.ED 09:36
DX: I11.0 Hypertensive heart disease with heart failure (principal); I50.9 Heart failure, unspecified; E78.00 Pure hypercholesterolemia, unspecified; K21.9 Gastro-esophageal reflux disease without esophagitis; E11.9 Type 2 diabetes mellitus without complications; Z79.899 Other long term (current) drug therapy
CPT/HCPCS: 36415; 71045; 80053; 83880; 84484; 85025; 93005; 99285; J3490

== ENCOUNTER 2022-06-29 11:52 | Emergency (ER) | payer MEDICARE, OTHER ==
[2022-06-29 12:07] VITALS: BP 119/65; PULSE 90
[2022-06-29 13:28] LABS: CORONAVIRUS COVID-19 NAA NEGATIVE (NEGATIVE)
== END 2022-06-29 14:35 | disposition home or self-care (01) ==
LOC: JD.ED 11:52
DX: J18.9 Pneumonia, unspecified organism (principal); I25.10 Atherosclerotic heart disease of native coronary artery without angina pectoris; E78.00 Pure hypercholesterolemia, unspecified; I11.0 Hypertensive heart disease with heart failure; I50.9 Heart failure, unspecified; E11.9 Type 2 diabetes mellitus without complications; Z86.16 Personal history of COVID-19; Z95.1 Presence of aortocoronary bypass graft; Z88.1 Allergy status to other antibiotic agents; Z79.82 Long term (current) use of aspirin; Z79.84 Long term (current) use of oral hypoglycemic drugs; Z79.899 Other long term (current) drug therapy; Z20.822 Contact with and (suspected) exposure to COVID-19
CPT/HCPCS: 0241U; 36415; 71046; 85027; 86140; 86308; 87651; 99283; 99284

== ENCOUNTER 2023-03-16 07:34 | Emergency (ER) | payer MEDICARE, OTHER ==
[2023-03-16 08:40] LABS: BASOPHILS PERCENT AUTO 0.3 % (0.0-1.0); EOSINOPHILS ABSOLUTE AUTO 0.1 K/mm3 (0.0-0.4); EOSINOPHILS PERCENT AUTO 1.4 % (0.0-6.0); HEMATOCRIT 48.6 % (42.0-52.0); HEMOGLOBIN 15.9 gm/dl (14.0-18.0); IMMATURE GRAN ABSOLUTE AUTO 0.03 K/mm3 (0.00-0.05); IMMATURE GRAN PERCENT AUTO 0.5 % (0.0-0.4); LYMPHOCYTES PERCENT AUTO 15.3 % (24.0-44.0); MEAN CORPUSCULAR HEMOGLOBIN 36.5 pg (28.0-32.0); MEAN CORPUSCULAR HGB CONC 32.7 g/dl (32.0-36.0); MEAN CORPUSCULAR VOLUME 111.5 fl (83.0-99.0); MEAN PLATELET VOLUME 10.5 fl (9.4-12.4); MONOCYTES ABSOLUTE AUTO 0.2 K/mm3 (0.0-0.8); MONOCYTES PERCENT AUTO 3.6 % (0.0-8.0); NEUTROPHILS PERCENT AUTO 78.9 % (41.0-71.0); PLATELET COUNT,PLT 248 K/mm3 (150-400); RED BLOOD CELL COUNT 4.36 M/mm3 (4.52-5.90); WHITE BLOOD CELL COUNT,WBC 6.34 K/mm3 (3.9-11.3)
[2023-03-16 09:06] LABS: A/G RATIO 1.2 (1-2); ALBUMIN 3.9 g/dl (3.4-5.0); ANION GAP 11.2 (5-15); BILIRUBIN TOTAL 3.2 mg/dL (0.2-1.0); BUN/CREATININE RATIO 22.5 (14-18); CALCIUM 9.7 mg/dL (8.5-10.1); CREATININE 1.2 mg/dL (0.7-1.3); EST CRCL DRUG DOSING (CG) 44.19 mL/min; POTASSIUM,K 4.2 mEq/L (3.5-5.1); PROTEIN TOTAL,TP 7.1 g/dl (6.4-8.2)
[2023-03-16 09:34] LABS: SLIDE REVIEW ABNORMAL SMEAR
[2023-03-16] MEDS ORDERED: Magnesium Hydroxide 400 MG/5 ML Susp 30 ML Cup PO ONE (09:40)
[2023-03-16] MEDS ORDERED: Bisacodyl 5 MG Tab PO ONE (09:40)
[2023-03-16 11:23] VITALS: BP 127/87; PULSE 86
== END 2023-03-16 10:05 | disposition home or self-care (01) ==
LOC: JD.ED 07:34
DX: K59.00 Constipation, unspecified (principal); I25.810 Atherosclerosis of coronary artery bypass graft(s) without angina pectoris; I11.0 Hypertensive heart disease with heart failure; I50.9 Heart failure, unspecified; E78.00 Pure hypercholesterolemia, unspecified; M19.90 Unspecified osteoarthritis, unspecified site; E11.9 Type 2 diabetes mellitus without complications; Z86.16 Personal history of COVID-19; Z88.1 Allergy status to other antibiotic agents; Z79.82 Long term (current) use of aspirin; Z79.84 Long term (current) use of oral hypoglycemic drugs; Z79.899 Other long term (current) drug therapy
CPT/HCPCS: 36415; 74019; 80053; 85025; 99283; A9270; 99284

== ENCOUNTER 2023-03-31 12:07 | Emergency (ER) | payer MEDICARE, OTHER ==
[2023-03-31 12:59] LABS: BASOPHILS PERCENT AUTO 0.5 % (0.0-1.0); EOSINOPHILS ABSOLUTE AUTO 0.1 K/mm3 (0.0-0.4); EOSINOPHILS PERCENT AUTO 1.2 % (0.0-6.0); HEMATOCRIT 42.7 % (42.0-52.0); HEMOGLOBIN 14.4 gm/dl (14.0-18.0); IMMATURE GRAN ABSOLUTE AUTO 0.02 K/mm3 (0.00-0.05); IMMATURE GRAN PERCENT AUTO 0.3 % (0.0-0.4); LYMPHOCYTES ABSOLUTE AUTO 0.9 K/mm3 (1.0-4.8); LYMPHOCYTES PERCENT AUTO 14.1 % (24.0-44.0); MEAN CORPUSCULAR HEMOGLOBIN 36.7 pg (28.0-32.0); MEAN CORPUSCULAR HGB CONC 33.7 g/dl (32.0-36.0); MEAN CORPUSCULAR VOLUME 108.9 fl (83.0-99.0); MEAN PLATELET VOLUME 10.6 fl (9.4-12.4); MONOCYTES ABSOLUTE AUTO 0.4 K/mm3 (0.0-0.8); MONOCYTES PERCENT AUTO 5.7 % (0.0-8.0); NEUTROPHILS PERCENT AUTO 78.2 % (41.0-71.0); PLATELET COUNT,PLT 271 K/mm3 (150-400); RED BLOOD CELL COUNT 3.92 M/mm3 (4.52-5.90); WHITE BLOOD CELL COUNT,WBC 6.45 K/mm3 (3.9-11.3)
[2023-03-31 13:32] LABS: A/G RATIO 1.2 (1-2); ALBUMIN 3.5 g/dl (3.4-5.0); ANION GAP 14.3 (5-15); BILIRUBIN TOTAL 2.1 mg/dL (0.2-1.0); BUN/CREATININE RATIO 20.9 (14-18); CALCIUM 9.3 mg/dL (8.5-10.1); CREATININE 1.1 mg/dL (0.7-1.3); EST CRCL DRUG DOSING (CG) 47.31 mL/min; POTASSIUM,K 4.3 mEq/L (3.5-5.1); PROTEIN TOTAL,TP 6.4 g/dl (6.4-8.2)
[2023-03-31] MEDS ORDERED: Furosemide 20 MG Tab PO ONE (13:54)
[2023-03-31] MEDS ORDERED: Furosemide 40 MG Tab PO ONE (13:57)
[2023-03-31 14:15] VITALS: BP 154/89; PULSE 70
== END 2023-03-31 14:15 | disposition home or self-care (01) ==
LOC: JD.ED 12:07
DX: I11.0 Hypertensive heart disease with heart failure (principal); I50.9 Heart failure, unspecified; I25.10 Atherosclerotic heart disease of native coronary artery without angina pectoris; E78.00 Pure hypercholesterolemia, unspecified; K21.9 Gastro-esophageal reflux disease without esophagitis; E11.9 Type 2 diabetes mellitus without complications; Z86.16 Personal history of COVID-19; Z88.1 Allergy status to other antibiotic agents; Z79.82 Long term (current) use of aspirin; Z79.899 Other long term (current) drug therapy
CPT/HCPCS: 36415; 80053; 83880; 85025; 99284; A9270

== ENCOUNTER 2025-02-03 10:01 | Inpatient (IN) | payer MEDICARE, OTHER ==
[2025-02-03 11:53] LABS: BASOPHILS ABSOLUTE AUTO 0.0 K/mm3 (0.0-0.2); BASOPHILS PERCENT AUTO 0.5 % (0.0-1.0); EOSINOPHILS ABSOLUTE AUTO 0.0 K/mm3 (0.0-0.4); EOSINOPHILS PERCENT AUTO 0.0 % (0.0-6.0); IMMATURE GRAN ABSOLUTE AUTO 0.03 K/mm3 (0.00-0.05); IMMATURE GRAN PERCENT AUTO 0.5 % (0.0-0.4); LYMPHOCYTES ABSOLUTE AUTO 0.5 K/mm3 (1.0-4.8); LYMPHOCYTES PERCENT AUTO 8.4 % (24.0-44.0); MEAN PLATELET VOLUME 11.6 fl (9.4-12.4); MONOCYTES ABSOLUTE AUTO 0.3 K/mm3 (0.0-0.8); MONOCYTES PERCENT AUTO 5.9 % (0.0-8.0); NEUTROPHILS ABSOLUTE AUTO 4.9 K/mm3 (1.8-7.7); NEUTROPHILS PERCENT AUTO 84.7 % (41.0-71.0); NRBC ABSOLUTE 0.00 (0.00-0.02); NRBC PERCENT 0.0 % (0.0-0.2); PLATELET COUNT,PLT 193 K/mm3 (150-400); RED BLOOD CELL COUNT 4.61 M/mm3 (4.52-5.90); WHITE BLOOD CELL COUNT,WBC 5.80 K/mm3 (3.9-11.3)
[2025-02-03 12:15] LABS: A/G RATIO 1.1 (1-2); ALANINE AMINOTRANSFERASE,ALT 31.0 U/L (16-63); ASPARTATE AMNIOTRANSFERASE,AST 67.0 U/L (15-37); BILIRUBIN TOTAL 5.5 mg/dL (0.2-1.0); CARBON DIOXIDE,CO2 25.0 mEq/L (21-32); CHLORIDE,CL 101.0 mEq/L (98-107); EST CRCL DRUG DOSING (CG) 20.16 mL/min; ESTIMATED GFR 23.0 mL/min (>60); GLUCOSE RANDOM 114.0 mg/dL (70-99); POTASSIUM,K 4.3 mEq/L (3.5-5.1); SODIUM,NA 137.0 mEq/L (136-145)
[2025-02-03 12:39] LABS: BLOOD UREA NITROGEN,BUN 66.0 mg/dL (7-18); CREATININE 2.6 mg/dL (0.7-1.3)
[2025-02-03 12:40] LABS: PROTEIN TOTAL,TP 6.1 g/dl (6.4-8.2)
[2025-02-03 12:54] LABS: APPEARANCE,URINE CLEAR (Clear); GLUCOSE,URINE NEGATIVE (Negative); OCCULT BLOOD,URINE 2+ (Negative)
[2025-02-03 13:15] LABS: SQUAMOUS EPITHELIAL CELLS,UR 0-5 /hpf (0-5)
[2025-02-03] MEDS: Sodium Chloride 0.9% 10 ML Syringe FLUSH PRN (13:51)
[2025-02-03 14:08] LABS: CREATINE KINASE,CK 1457 U/L (39-308)
[2025-02-03 14:47] LABS: LACTIC ACID 1.9 mmol/L (0.4-2.0)
[2025-02-03] MEDS ORDERED: Naloxone 0.4 MG/ML SDV IVPUSH PRN (15:24)
[2025-02-03 15:51] LABS: TSH 1.568 uIU/mL (0.358-3.74)
[2025-02-03] MEDS ORDERED: 50% Dextrose in Water 50 ML Syringe IVPUSH PRN (19:41)
[2025-02-03 20:39] LABS: BASE EXCESS VENOUS -2.1 (-4.0-2.0); BICARBONATE,VENOUS 21.2 meq/L (22-26); O2 SATURATION VENOUS 90.4; PCO2 VENOUS 32.0 mmHg (41-51); PH,VENOUS 7.43 (7.30-7.40); PO2 VENOUS 63.0 mmHG (40-80)
[2025-02-03] MEDS: Heparin Sodium 5,000 Units/ML Vial SUBCUT SCH (20:50)
[2025-02-03] MEDS: Insulin Lispro 100 Unit/ML 3 ML KwikPen SUBCUT SCH (21:54)
[2025-02-04 05:38] LABS: BASOPHILS ABSOLUTE AUTO 0.0 K/mm3 (0.0-0.2); BASOPHILS PERCENT AUTO 0.7 % (0.0-1.0); EOSINOPHILS ABSOLUTE AUTO 0.1 K/mm3 (0.0-0.4); EOSINOPHILS PERCENT AUTO 1.5 % (0.0-6.0); IMMATURE GRAN ABSOLUTE AUTO 0.04 K/mm3 (0.00-0.05); IMMATURE GRAN PERCENT AUTO 0.7 % (0.0-0.4); LYMPHOCYTES ABSOLUTE AUTO 0.6 K/mm3 (1.0-4.8); LYMPHOCYTES PERCENT AUTO 11.1 % (24.0-44.0); MEAN PLATELET VOLUME 11.7 fl (9.4-12.4); MONOCYTES ABSOLUTE AUTO 0.3 K/mm3 (0.0-0.8); MONOCYTES PERCENT AUTO 6.3 % (0.0-8.0); NEUTROPHILS ABSOLUTE AUTO 4.3 K/mm3 (1.8-7.7); NEUTROPHILS PERCENT AUTO 79.7 % (41.0-71.0); NRBC ABSOLUTE 0.00 (0.00-0.02); NRBC PERCENT 0.0 % (0.0-0.2); PLATELET COUNT,PLT 189 K/mm3 (150-400); RED BLOOD CELL COUNT 4.44 M/mm3 (4.52-5.90); WHITE BLOOD CELL COUNT,WBC 5.40 K/mm3 (3.9-11.3)
[2025-02-04 05:49] LABS: A/G RATIO 1.0 (1-2); ALANINE AMINOTRANSFERASE,ALT 27.0 U/L (16-63); ASPARTATE AMNIOTRANSFERASE,AST 59.0 U/L (15-37); BILIRUBIN TOTAL 3.5 mg/dL (0.2-1.0); BLOOD UREA NITROGEN,BUN 56.0 mg/dL (7-18); CARBON DIOXIDE,CO2 24.0 mEq/L (21-32); CHLORIDE,CL 104.0 mEq/L (98-107); CREATINE KINASE,CK 855.0 U/L (39-308); CREATININE 1.9 mg/dL (0.7-1.3); EST CRCL DRUG DOSING (CG) 28.33 mL/min; ESTIMATED GFR 34.0 mL/min (>60); GLUCOSE RANDOM 68.0 mg/dL (70-99); POTASSIUM,K 4.2 mEq/L (3.5-5.1); PROTEIN TOTAL,TP 5.7 g/dl (6.4-8.2); SODIUM,NA 139.0 mEq/L (136-145)
[2025-02-05 05:57] LABS: A/G RATIO 0.9 (1-2); ALANINE AMINOTRANSFERASE,ALT 32.0 U/L (16-63); ASPARTATE AMNIOTRANSFERASE,AST 65.0 U/L (15-37); BILIRUBIN TOTAL 2.3 mg/dL (0.2-1.0); BLOOD UREA NITROGEN,BUN 43.0 mg/dL (7-18); CARBON DIOXIDE,CO2 24.0 mEq/L (21-32); CHLORIDE,CL 106.0 mEq/L (98-107); CREATININE 1.7 mg/dL (0.7-1.3); EST CRCL DRUG DOSING (CG) 31.99 mL/min; ESTIMATED GFR 38.0 mL/min (>60); GLUCOSE RANDOM 114.0 mg/dL (70-99); POTASSIUM,K 3.9 mEq/L (3.5-5.1); PROTEIN TOTAL,TP 5.9 g/dl (6.4-8.2); SODIUM,NA 139.0 mEq/L (136-145)
[2025-02-05 06:27] LABS: BASOPHILS ABSOLUTE AUTO 0.0 K/mm3 (0.0-0.2); BASOPHILS PERCENT AUTO 0.8 % (0.0-1.0); EOSINOPHILS ABSOLUTE AUTO 0.1 K/mm3 (0.0-0.4); EOSINOPHILS PERCENT AUTO 2.4 % (0.0-6.0); IMMATURE GRAN ABSOLUTE AUTO 0.03 K/mm3 (0.00-0.05); IMMATURE GRAN PERCENT AUTO 0.6 % (0.0-0.4); LYMPHOCYTES ABSOLUTE AUTO 0.5 K/mm3 (1.0-4.8); LYMPHOCYTES PERCENT AUTO 10.2 % (24.0-44.0); MEAN PLATELET VOLUME 11.7 fl (9.4-12.4); MONOCYTES ABSOLUTE AUTO 0.4 K/mm3 (0.0-0.8); MONOCYTES PERCENT AUTO 6.6 % (0.0-8.0); NEUTROPHILS ABSOLUTE AUTO 4.2 K/mm3 (1.8-7.7); NEUTROPHILS PERCENT AUTO 79.4 % (41.0-71.0); NRBC ABSOLUTE 0.00 (0.00-0.02); NRBC PERCENT 0.0 % (0.0-0.2); PLATELET COUNT,PLT 188 K/mm3 (150-400); RED BLOOD CELL COUNT 4.45 M/mm3 (4.52-5.90); WHITE BLOOD CELL COUNT,WBC 5.32 K/mm3 (3.9-11.3)
[2025-02-05] MEDS ORDERED: HYDROXYUREA 500 MG PO SCH (09:00)
[2025-02-05] MEDS: Furosemide 40 MG/4 ML VIAL IVPUSH ONE (19:01)
[2025-02-06 05:28] LABS: BASOPHILS ABSOLUTE AUTO 0.1 K/mm3 (0.0-0.2); BASOPHILS PERCENT AUTO 0.9 % (0.0-1.0); EOSINOPHILS ABSOLUTE AUTO 0.2 K/mm3 (0.0-0.4); EOSINOPHILS PERCENT AUTO 2.5 % (0.0-6.0); IMMATURE GRAN ABSOLUTE AUTO 0.03 K/mm3 (0.00-0.05); IMMATURE GRAN PERCENT AUTO 0.5 % (0.0-0.4); LYMPHOCYTES ABSOLUTE AUTO 0.6 K/mm3 (1.0-4.8); LYMPHOCYTES PERCENT AUTO 9.8 % (24.0-44.0); MEAN PLATELET VOLUME 10.7 fl (9.4-12.4); MONOCYTES ABSOLUTE AUTO 0.4 K/mm3 (0.0-0.8); MONOCYTES PERCENT AUTO 5.7 % (0.0-8.0); NEUTROPHILS ABSOLUTE AUTO 5.1 K/mm3 (1.8-7.7); NEUTROPHILS PERCENT AUTO 80.6 % (41.0-71.0); NRBC ABSOLUTE 0.00 (0.00-0.02); NRBC PERCENT 0.0 % (0.0-0.2); PLATELET COUNT,PLT 180 K/mm3 (150-400); RED BLOOD CELL COUNT 4.60 M/mm3 (4.52-5.90); WHITE BLOOD CELL COUNT,WBC 6.34 K/mm3 (3.9-11.3)
[2025-02-06 06:21] LABS: A/G RATIO 1.0 (1-2); ALANINE AMINOTRANSFERASE,ALT 43.0 U/L (16-63); ASPARTATE AMNIOTRANSFERASE,AST 69.0 U/L (15-37); BILIRUBIN TOTAL 1.6 mg/dL (0.2-1.0); BLOOD UREA NITROGEN,BUN 44.0 mg/dL (7-18); CARBON DIOXIDE,CO2 23.0 mEq/L (21-32); CHLORIDE,CL 106.0 mEq/L (98-107); CREATININE 2.0 mg/dL (0.7-1.3); EST CRCL DRUG DOSING (CG) 27.19 mL/min; ESTIMATED GFR 32.0 mL/min (>60); GLUCOSE RANDOM 133.0 mg/dL (70-99); POTASSIUM,K 4.2 mEq/L (3.5-5.1); PROTEIN TOTAL,TP 6.4 g/dl (6.4-8.2); SODIUM,NA 140.0 mEq/L (136-145)
[2025-02-06] MEDS: Furosemide 20 MG/2 ML VIAL IVPUSH ONE ×2 (09:09→14:38)
[2025-02-07 05:53] LABS: BASOPHILS ABSOLUTE AUTO 0.1 K/mm3 (0.0-0.2); BASOPHILS PERCENT AUTO 0.8 % (0.0-1.0); EOSINOPHILS ABSOLUTE AUTO 0.2 K/mm3 (0.0-0.4); EOSINOPHILS PERCENT AUTO 3.1 % (0.0-6.0); IMMATURE GRAN ABSOLUTE AUTO 0.03 K/mm3 (0.00-0.05); IMMATURE GRAN PERCENT AUTO 0.5 % (0.0-0.4); LYMPHOCYTES ABSOLUTE AUTO 0.6 K/mm3 (1.0-4.8); LYMPHOCYTES PERCENT AUTO 9.9 % (24.0-44.0); MEAN PLATELET VOLUME 11.4 fl (9.4-12.4); MONOCYTES ABSOLUTE AUTO 0.3 K/mm3 (0.0-0.8); MONOCYTES PERCENT AUTO 5.3 % (0.0-8.0); NEUTROPHILS ABSOLUTE AUTO 5.1 K/mm3 (1.8-7.7); NEUTROPHILS PERCENT AUTO 80.4 % (41.0-71.0); NRBC ABSOLUTE 0.00 (0.00-0.02); NRBC PERCENT 0.0 % (0.0-0.2); PLATELET COUNT,PLT 199 K/mm3 (150-400); RED BLOOD CELL COUNT 4.59 M/mm3 (4.52-5.90); WHITE BLOOD CELL COUNT,WBC 6.37 K/mm3 (3.9-11.3)
[2025-02-07 06:10] LABS: A/G RATIO 0.9 (1-2); ALANINE AMINOTRANSFERASE,ALT 43.0 U/L (16-63); ASPARTATE AMNIOTRANSFERASE,AST 70.0 U/L (15-37); BILIRUBIN TOTAL 1.4 mg/dL (0.2-1.0); BLOOD UREA NITROGEN,BUN 43.0 mg/dL (7-18); CARBON DIOXIDE,CO2 25.0 mEq/L (21-32); CHLORIDE,CL 106.0 mEq/L (98-107); CREATININE 1.9 mg/dL (0.7-1.3); EST CRCL DRUG DOSING (CG) 28.62 mL/min; ESTIMATED GFR 34.0 mL/min (>60); GLUCOSE RANDOM 120.0 mg/dL (70-99); POTASSIUM,K 3.9 mEq/L (3.5-5.1); PROTEIN TOTAL,TP 6.0 g/dl (6.4-8.2); SODIUM,NA 140.0 mEq/L (136-145)
[2025-02-08 05:33] LABS: A/G RATIO 1.0 (1-2); ALANINE AMINOTRANSFERASE,ALT 41.0 U/L (16-63); ASPARTATE AMNIOTRANSFERASE,AST 56.0 U/L (15-37); BILIRUBIN TOTAL 1.5 mg/dL (0.2-1.0); BLOOD UREA NITROGEN,BUN 45.0 mg/dL (7-18); CARBON DIOXIDE,CO2 25.0 mEq/L (21-32); CHLORIDE,CL 105.0 mEq/L (98-107); CREATININE 2.0 mg/dL (0.7-1.3); EST CRCL DRUG DOSING (CG) 27.19 mL/min; ESTIMATED GFR 32.0 mL/min (>60); GLUCOSE RANDOM 126.0 mg/dL (70-99); POTASSIUM,K 4.1 mEq/L (3.5-5.1); PROTEIN TOTAL,TP 6.1 g/dl (6.4-8.2); SODIUM,NA 142.0 mEq/L (136-145)
[2025-02-08 05:42] LABS: BASOPHILS ABSOLUTE AUTO 0.0 K/mm3 (0.0-0.2); BASOPHILS PERCENT AUTO 0.6 % (0.0-1.0); EOSINOPHILS ABSOLUTE AUTO 0.2 K/mm3 (0.0-0.4); EOSINOPHILS PERCENT AUTO 3.2 % (0.0-6.0); IMMATURE GRAN ABSOLUTE AUTO 0.04 K/mm3 (0.00-0.05); IMMATURE GRAN PERCENT AUTO 0.6 % (0.0-0.4); LYMPHOCYTES ABSOLUTE AUTO 0.6 K/mm3 (1.0-4.8); LYMPHOCYTES PERCENT AUTO 9.4 % (24.0-44.0); MEAN PLATELET VOLUME 11.7 fl (9.4-12.4); MONOCYTES ABSOLUTE AUTO 0.3 K/mm3 (0.0-0.8); MONOCYTES PERCENT AUTO 5.2 % (0.0-8.0); NEUTROPHILS ABSOLUTE AUTO 5.3 K/mm3 (1.8-7.7); NEUTROPHILS PERCENT AUTO 81.0 % (41.0-71.0); NRBC ABSOLUTE 0.00 (0.00-0.02); NRBC PERCENT 0.0 % (0.0-0.2); PLATELET COUNT,PLT 194 K/mm3 (150-400); RED BLOOD CELL COUNT 4.39 M/mm3 (4.52-5.90); WHITE BLOOD CELL COUNT,WBC 6.57 K/mm3 (3.9-11.3)
[2025-02-08] MEDS: Bumetanide 1 MG/4 ML MDV IVPUSH ONE (10:29)
[2025-02-09 04:54] LABS: BASOPHILS ABSOLUTE AUTO 0.0 K/mm3 (0.0-0.2); BASOPHILS PERCENT AUTO 0.6 % (0.0-1.0); EOSINOPHILS ABSOLUTE AUTO 0.2 K/mm3 (0.0-0.4); EOSINOPHILS PERCENT AUTO 3.9 % (0.0-6.0); IMMATURE GRAN ABSOLUTE AUTO 0.04 K/mm3 (0.00-0.05); IMMATURE GRAN PERCENT AUTO 0.6 % (0.0-0.4); LYMPHOCYTES ABSOLUTE AUTO 0.8 K/mm3 (1.0-4.8); LYMPHOCYTES PERCENT AUTO 13.2 % (24.0-44.0); MEAN PLATELET VOLUME 11.4 fl (9.4-12.4); MONOCYTES ABSOLUTE AUTO 0.4 K/mm3 (0.0-0.8); MONOCYTES PERCENT AUTO 5.8 % (0.0-8.0); NEUTROPHILS ABSOLUTE AUTO 4.7 K/mm3 (1.8-7.7); NEUTROPHILS PERCENT AUTO 75.9 % (41.0-71.0); NRBC ABSOLUTE 0.00 (0.00-0.02); NRBC PERCENT 0.0 % (0.0-0.2); PLATELET COUNT,PLT 223 K/mm3 (150-400); RED BLOOD CELL COUNT 4.44 M/mm3 (4.52-5.90); WHITE BLOOD CELL COUNT,WBC 6.22 K/mm3 (3.9-11.3)
[2025-02-09 05:26] LABS: A/G RATIO 0.9 (1-2); ALANINE AMINOTRANSFERASE,ALT 39.0 U/L (16-63); ASPARTATE AMNIOTRANSFERASE,AST 53.0 U/L (15-37); BILIRUBIN TOTAL 1.2 mg/dL (0.2-1.0); BLOOD UREA NITROGEN,BUN 49.0 mg/dL (7-18); CARBON DIOXIDE,CO2 26.0 mEq/L (21-32); CHLORIDE,CL 105.0 mEq/L (98-107); CREATININE 2.0 mg/dL (0.7-1.3); EST CRCL DRUG DOSING (CG) 27.19 mL/min; ESTIMATED GFR 32.0 mL/min (>60); GLUCOSE RANDOM 118.0 mg/dL (70-99); POTASSIUM,K 4.2 mEq/L (3.5-5.1); PROTEIN TOTAL,TP 6.2 g/dl (6.4-8.2); SODIUM,NA 141.0 mEq/L (136-145)
[2025-02-10 05:16] LABS: A/G RATIO 0.9 (1-2); ALANINE AMINOTRANSFERASE,ALT 40.0 U/L (16-63); ASPARTATE AMNIOTRANSFERASE,AST 45.0 U/L (15-37); BILIRUBIN TOTAL 1.3 mg/dL (0.2-1.0); BLOOD UREA NITROGEN,BUN 47.0 mg/dL (7-18); CARBON DIOXIDE,CO2 28.0 mEq/L (21-32); CHLORIDE,CL 104.0 mEq/L (98-107); CREATININE 1.9 mg/dL (0.7-1.3); EST CRCL DRUG DOSING (CG) 28.62 mL/min; ESTIMATED GFR 34.0 mL/min (>60); GLUCOSE RANDOM 113.0 mg/dL (70-99); POTASSIUM,K 4.2 mEq/L (3.5-5.1); PROTEIN TOTAL,TP 6.4 g/dl (6.4-8.2); SODIUM,NA 143.0 mEq/L (136-145)
[2025-02-10 10:56] VITALS: BP 105/68; PULSE 88
== END 2025-02-10 09:22 | DRG 557 ==
LOC: JD.ED 10:01 → JD.MS 14:44
PROVIDERS: ADMIT Family Medicine; ATTEND Internal Medicine
DX: M62.82 Rhabdomyolysis (principal); J18.9 Pneumonia, unspecified organism; J96.01 Acute respiratory failure with hypoxia; N17.9 Acute kidney failure, unspecified; J90 Pleural effusion, not elsewhere classified; I11.0 Hypertensive heart disease with heart failure; I25.10 Atherosclerotic heart disease of native coronary artery without angina pectoris; E78.00 Pure hypercholesterolemia, unspecified; E11.9 Type 2 diabetes mellitus without complications; I48.91 Unspecified atrial fibrillation; I95.9 Hypotension, unspecified; H26.9 Unspecified cataract; I50.9 Heart failure, unspecified; K21.9 Gastro-esophageal reflux disease without esophagitis; N40.0 Benign prostatic hyperplasia without lower urinary tract symptoms; N20.0 Calculus of kidney; M19.90 Unspecified osteoarthritis, unspecified site; Z86.16 Personal history of COVID-19; Z90.49 Acquired absence of other specified parts of digestive tract; Z88.8 Allergy status to other drugs, medicaments and biological substances; Z79.82 Long term (current) use of aspirin; Z95.5 Presence of coronary angioplasty implant and graft; Z79.899 Other long term (current) drug therapy; Z79.84 Long term (current) use of oral hypoglycemic drugs
CPT/HCPCS: 29580-GP; 36415; 70450; 70450-26; 71045; 71045-26; 71250; 71250-26; 72125; 72125-26; 74176; 74176-26; 76705; 76705-26; 80053; 81001; 82140; 82550; 82803; 82947; 82977; 83605; 83690; 83735; 83880; 84443; 84484; 85025; 85379; 86140; 87040; 87426-QW; 93005; 93306; 94761; 96360; 97110-GP; 97161-GP; 97530-GP; 99285; 99285-25; A9270-GY; J0696; J1171; J1271; J1644; J1938; J3490; J7030; U0002

== ENCOUNTER 2025-02-24 17:05 | Inpatient (IN) | payer MEDICARE ==
[2025-02-24 17:31] LABS: BASOPHILS ABSOLUTE AUTO 0.0 K/mm3 (0.0-0.2); BASOPHILS PERCENT AUTO 0.4 % (0.0-1.0); EOSINOPHILS ABSOLUTE AUTO 0.2 K/mm3 (0.0-0.4); EOSINOPHILS PERCENT AUTO 2.1 % (0.0-6.0); IMMATURE GRAN ABSOLUTE AUTO 0.04 K/mm3 (0.00-0.05); IMMATURE GRAN PERCENT AUTO 0.6 % (0.0-0.4); LYMPHOCYTES ABSOLUTE AUTO 0.8 K/mm3 (1.0-4.8); LYMPHOCYTES PERCENT AUTO 10.5 % (24.0-44.0); MEAN PLATELET VOLUME 11.2 fl (9.4-12.4); MONOCYTES ABSOLUTE AUTO 0.2 K/mm3 (0.0-0.8); MONOCYTES PERCENT AUTO 3.4 % (0.0-8.0); NEUTROPHILS ABSOLUTE AUTO 5.9 K/mm3 (1.8-7.7); NEUTROPHILS PERCENT AUTO 83.0 % (41.0-71.0); NRBC ABSOLUTE 0.00 (0.00-0.02); NRBC PERCENT 0.0 % (0.0-0.2); PLATELET COUNT,PLT 354 K/mm3 (150-400); RED BLOOD CELL COUNT 4.62 M/mm3 (4.52-5.90); WHITE BLOOD CELL COUNT,WBC 7.12 K/mm3 (3.9-11.3)
[2025-02-24 17:37] LABS: INR 1.12
[2025-02-24 17:39] LABS: PTT,PARTIAL THROMBOPLSTIN TIME 26.6 SECONDS (21.7-31.4)
[2025-02-24] MEDS: Sodium Chloride 0.9% 10 ML Syringe FLUSH PRN (17:51)
[2025-02-24 17:53] LABS: LACTIC ACID 1.7 mmol/L (0.4-2.0)
[2025-02-24] MEDS: Iopamidol 755 Mg/ML 100 ML Bottle IVPUSH ONE (17:54)
[2025-02-24] MEDS: Sodium Chloride 0.9% 10 ML Syringe FLUSH ONE (17:54)
[2025-02-24 17:55] LABS: A/G RATIO 0.8 (1-2); ALANINE AMINOTRANSFERASE,ALT 25.0 U/L (16-63); ASPARTATE AMNIOTRANSFERASE,AST 31.0 U/L (15-37); BILIRUBIN TOTAL 2.3 mg/dL (0.2-1.0); BLOOD UREA NITROGEN,BUN 48.0 mg/dL (7-18); CARBON DIOXIDE,CO2 33.0 mEq/L (21-32); CHLORIDE,CL 103.0 mEq/L (98-107); CREATINE KINASE,CK 30.0 U/L (39-308); CREATININE 2.4 mg/dL (0.7-1.3); EST CRCL DRUG DOSING (CG) 19.89 mL/min; ESTIMATED GFR 25.0 mL/min (>60); GLUCOSE RANDOM 112.0 mg/dL (70-99); POTASSIUM,K 4.2 mEq/L (3.5-5.1); PROTEIN TOTAL,TP 6.6 g/dl (6.4-8.2); SODIUM,NA 144.0 mEq/L (136-145); TROPONIN I HIGH SENSITIVITY 26.0 pg/mL (<=76); TSH 1.804 uIU/mL (0.358-3.74)
[2025-02-24 17:59] LABS: ETHANOL BLOOD MEDICAL 0.0 gm% (0.00)
[2025-02-24 18:10] LABS: O2 SATURATION ARTERIAL 97.5 % (96.0-97.0); PCO2 ARTERIAL 42.0 mmHg (35.0-45.0); PO2 ARTERIAL 80.0 mmHg (80.0-100.0)
[2025-02-24 18:11] LABS: BASE EXCESS ARTERIAL 7.0 (-2-2.0); BICARBONATE,ARTERIAL 31.3 meq/L (22.0-26.0)
[2025-02-24 19:33] LABS: APPEARANCE,URINE CLEAR (Clear); GLUCOSE,URINE 2+ (Negative); OCCULT BLOOD,URINE 1+ (Negative)
[2025-02-24 19:40] LABS: EPITHELIAL CELLS,URINE 0-5 /hpf (0-5)
[2025-02-24 19:42] LABS: BUPRENORPHINE SCREEN,URINE NEGATIVE (CUTOFF=10); METHADONE SCREEN, URINE NEGATIVE (CUT0FF=200); METHAMPHETAMINES SCREEN, URINE NEGATIVE (CUTOFF=500); OXYCODONE SCREEN,URINE NEGATIVE (CUT0FF=100); THC SCREEN,URINE 20 NG/ML NEGATIVE (CUTOFF=50)
[2025-02-24 19:43] LABS: AMPHETAMINES SCREEN, URINE NEGATIVE (CUTOFF=500)
[2025-02-24] MEDS: cefTRIAXone 1 GM in Water For Injection, Sterile 10 ML IVPUSH ONE (20:25)
[2025-02-25 07:10] LABS: BASOPHILS ABSOLUTE AUTO 0.0 K/mm3 (0.0-0.2); BASOPHILS PERCENT AUTO 0.5 % (0.0-1.0); EOSINOPHILS ABSOLUTE AUTO 0.1 K/mm3 (0.0-0.4); EOSINOPHILS PERCENT AUTO 1.8 % (0.0-6.0); IMMATURE GRAN ABSOLUTE AUTO 0.04 K/mm3 (0.00-0.05); IMMATURE GRAN PERCENT AUTO 0.5 % (0.0-0.4); LYMPHOCYTES ABSOLUTE AUTO 0.6 K/mm3 (1.0-4.8); LYMPHOCYTES PERCENT AUTO 7.7 % (24.0-44.0); MEAN PLATELET VOLUME 11.4 fl (9.4-12.4); MONOCYTES ABSOLUTE AUTO 0.3 K/mm3 (0.0-0.8); MONOCYTES PERCENT AUTO 3.7 % (0.0-8.0); NEUTROPHILS ABSOLUTE AUTO 6.8 K/mm3 (1.8-7.7); NEUTROPHILS PERCENT AUTO 85.8 % (41.0-71.0); NRBC ABSOLUTE 0.00 (0.00-0.02); NRBC PERCENT 0.0 % (0.0-0.2); PLATELET COUNT,PLT 310 K/mm3 (150-400); RED BLOOD CELL COUNT 4.51 M/mm3 (4.52-5.90); WHITE BLOOD CELL COUNT,WBC 7.88 K/mm3 (3.9-11.3)
[2025-02-25 07:41] LABS: A/G RATIO 0.8 (1-2); ALANINE AMINOTRANSFERASE,ALT 21.0 U/L (16-63); ASPARTATE AMNIOTRANSFERASE,AST 27.0 U/L (15-37); BILIRUBIN TOTAL 2.4 mg/dL (0.2-1.0); BLOOD UREA NITROGEN,BUN 43.0 mg/dL (7-18); CARBON DIOXIDE,CO2 30.0 mEq/L (21-32); CHLORIDE,CL 102.0 mEq/L (98-107); CREATININE 2.1 mg/dL (0.7-1.3); EST CRCL DRUG DOSING (CG) 22.73 mL/min; ESTIMATED GFR 30.0 mL/min (>60); GLUCOSE RANDOM 113.0 mg/dL (70-99); PHOSPHORUS 4.4 mg/dL (2.6-4.7); POTASSIUM,K 4.2 mEq/L (3.5-5.1); PROTEIN TOTAL,TP 6.3 g/dl (6.4-8.2); SODIUM,NA 140.0 mEq/L (136-145)
[2025-02-25] MEDS: Sennosides/Docusate Sodium 50-8.6 MG Tab PO SCH (09:50)
[2025-02-25] MEDS: Bumetanide 1 MG/4 ML MDV IVPUSH ONE (14:46)
[2025-02-25] MEDS ORDERED: Ondansetron 4 MG/2 ML SDV IVPUSH PRN (16:39)
[2025-02-25] MEDS ORDERED: cefTRIAXone 1 GM in Water For Injection, Sterile 10 ML IVPUSH SCH (20:15)
[2025-02-25] MEDS: LORazepam 2 MG/ML SDV IVPUSH PRN (22:43)
[2025-02-26] MEDS: Scopalamine 1mg/3day Transdermal Patch TOP ONE (16:00)
[2025-02-26 17:00] VITALS: BP 99/64; PULSE 95
[2025-03-01] MEDS ORDERED: REMOVE SCOPOLAMINE TRDERM ONE (16:00)
== END 2025-02-27 06:10 | disposition expired | DRG 871 ==
LOC: JD.ED 17:05 → JD.MS 20:13
PROVIDERS: ADMIT Family Medicine; ATTEND Family Medicine
PROC: 4A033R1 Measurement of Arterial Saturation, Peripheral, Percutaneous Approach (ICD-10-PCS; principal; 2025-02-24)
PROC: 3E03329 Introduction of Other Anti-infective into Peripheral Vein, Percutaneous Approach (ICD-10-PCS; principal; 2025-02-24)
DX: A41.9 Sepsis, unspecified organism (principal); G93.41 Metabolic encephalopathy; I50.43 Acute on chronic combined systolic (congestive) and diastolic (congestive) heart failure; G93.40 Encephalopathy, unspecified; J96.01 Acute respiratory failure with hypoxia; R65.21 Severe sepsis with septic shock; J18.9 Pneumonia, unspecified organism; I77.72 Dissection of iliac artery; I13.0 Hypertensive heart and chronic kidney disease with heart failure and stage 1 through stage 4 chronic kidney disease, or unspecified chronic kidney disease; N17.9 Acute kidney failure, unspecified; I74.5 Embolism and thrombosis of iliac artery; Z66 Do not resuscitate; Z51.5 Encounter for palliative care; I48.91 Unspecified atrial fibrillation; E78.00 Pure hypercholesterolemia, unspecified; K21.9 Gastro-esophageal reflux disease without esophagitis; N18.9 Chronic kidney disease, unspecified; N40.0 Benign prostatic hyperplasia without lower urinary tract symptoms; R55 Syncope and collapse; L89.151 Pressure ulcer of sacral region, stage 1; I11.0 Hypertensive heart disease with heart failure; I50.9 Heart failure, unspecified; E11.22 Type 2 diabetes mellitus with diabetic chronic kidney disease; M19.90 Unspecified osteoarthritis, unspecified site; E11.9 Type 2 diabetes mellitus without complications; I25.10 Atherosclerotic heart disease of native coronary artery without angina pectoris; Z98.890 Other specified postprocedural states; Z95.5 Presence of coronary angioplasty implant and graft; Z98.49 Cataract extraction status, unspecified eye; Z79.82 Long term (current) use of aspirin; Z88.1 Allergy status to other antibiotic agents; Z87.442 Personal history of urinary calculi; Z95.1 Presence of aortocoronary bypass graft; Z88.8 Allergy status to other drugs, medicaments and biological substances; Z79.899 Other long term (current) drug therapy; Z86.16 Personal history of COVID-19; Z90.49 Acquired absence of other specified parts of digestive tract
CPT/HCPCS: 36415; 36600; 70450; 71045; 71275; 72125; 72170; 74177; 80053; 80143; 80179; 80306; 80307; 81001; 82140; 82550; 82803; 82947; 83605; 83690; 83735; 83880; 84443; 84484 ×2; 85025; 85610; 85730; 87040 ×2; 87428; 93005; 94762; 96360; 99285; C1758; J7030; Q9967; 51798; 84100; 86140; 93010; 94760; 94761; 99223; 99233; 99238; A9270-GY; J0696; J1271; J1650; J2060; J2270